=== PATIENT | female | born 1985 | race African-American/Black ===

== ENCOUNTER 2017-03-21 10:03 | Emergency (ER) | payer OTHER ==
[~2017-03-21] VITALS: Ht 157.5 cm; Wt 122.5 kg
[~2017-03-21 10:03] MED LIST: AZIT500T2 PO; CITA20TA9 PO
[2017-03-21 10:34] VITALS: BP 132/62
--- NOTE | 2017-03-21 11:13 | PHYS DOC ---
Past Medical History Past Medical History: Anxiety, Asthma Additional Past Medical Histor: VSD, panic attacks Past Surgical History: , Other Additional Past Surgical Histo: PFO closure as an infant Alcohol Use: Occasionally Drug Use: None Adult General Chief Complaint Chief Complaint: COUGH HPI HPI Patient is a 31 year old female presents to the stating that she has been having a cough congestion with sinus pressure. Patient states this is been gone on for the last week. She states she's been having chills denies fevers. Patient states she does have a history of asthma. Denies shortness of air difficulty breathing. Review of Systems Review of Systems Constitutional: Denies fever or chills [] Eyes: Denies change in visual acuity, redness, or eye pain [] HENT: nasal congestion and sore throat [] Respiratory: cough and wheezing Cardiovascular: No additional information not addressed in HPI [] GI: Denies abdominal pain, nausea, vomiting, bloody stools or diarrhea [] : Denies dysuria or hematuria [] Musculoskeletal: Denies back pain or joint pain [] Integument: Denies rash or skin lesions [] Neurologic: Denies headache, focal weakness or sensory changes [] Endocrine: Denies polyuria or polydipsia [] Current Medications Current Medications Current Medications Medications (Trade) Dose Ordered Sig/Kareen Start Time Stop Time Status Last Admin Dose Admin Albuterol/ Ipratropium (Duoneb) 3 ml 1X ONCE 03/21/17 11:15 03/21/17 11:21 DC 03/21/17 12:44 3 ML Allergies Allergies Allergies Coded Allergies Type Severity Reaction Last Updated Verified cefaclor Allergy Intermediate hives 01/04/14 Yes prochlorperazine edisylate Adverse Reaction Unknown panic attack 01/04/14 Yes prochlorperazine maleate Adverse Reaction Unknown panic attack 01/04/14 Yes Physical Exam Physical Exam Constitutional: Well developed, well nourished, no acute distress, non-toxic appearance. [] HENT: Normocephalic, atraumatic, bilateral external ears normal, oropharynx moist, no oral exudates, nose normal. Bilateral tympanic membranes appear to be normal. Throat with postnasal drip noted no erythematous no exudate no redness noted. Eyes: PERRLA, EOMI, conjunctiva normal, no discharge. [] Neck: Normal range of motion, no tenderness, supple, no stridor. [] Cardiovascular:Heart rate regular rhythm, no murmur [] Lungs & Thorax: Bilateral breath sounds with wheezes noted in the right posterior lobe. Back: No tenderness Extremities: No tenderness, no cyanosis, no clubbing, ROM intact, no edema. [] Neurologic: Alert and oriented X 3, normal motor function, normal sensory function, no focal deficits noted. [] Psychologic: Affect normal, judgement normal, mood normal. [] Current Patient Data Vital Signs Vital Signs Date Time Temp Pulse Resp B/P (MAP) Pulse Ox O2 Delivery O2 Flow Rate FiO2 03/21/17 10:34 98.4 71 18 100 Room Air 98.4 Lab Values Laboratory Tests Test 03/21/17 09:45 POC Urine HCG, Qualitative Hcg negative (Negative) EKG EKG [] Radiology/Procedures Radiology/Procedures [] Course & Med Decision Making Course & Med Decision Making Pertinent Labs and Imaging studies reviewed. (See chart for details) Patient was provided with a DuoNeb treatment here in the emergency department. She'll be placed on prednisone with an inhaler at discharge. She'll also be placed on doxycycline for sinusitis infection. Patient was instructed to avoid sexual intercourse for the next 2 weeks. Patient agrees with discharge instructions, treatment regimens and follow-up recommendations. Sutures to return back to emergency department has been provided. Patient agrees with discharge instructions treatment regimens and follow-up recommendations. All questions and concerns been answered. [] Dragon Disclaimer Dragon Disclaimer This electronic medical record was generated, in whole or in part, using a voice recognition dictation system. Departure Departure Impression: Primary Impression: Sinusitis Additional Impression: Bronchitis Disposition: 01 HOME, SELF-CARE Condition: STABLE Referrals: MARY LOU TORRES APRN (PCP) Patient Instructions: Acute Bronchitis, [id number], Sinusitis, [id number] Additional Instructions: Activity as tolerated. Medication as prescribed. Avoid sexual intercourse while being on the antibiotics. Follow-up through primary care physician in the next week. Return back to emergency prior signs and symptoms that become worse. Scripts Albuterol Sulfate (PROAIR HFA INHALER) 8.5 Gm Hfa.aer.ad 1 PUFF INH PRN Q6HRS Y for SHORTNESS OF BREATH, #1 INHALER 0 Refills Prov: NIKKI HUFF APRN 03/21/17 Prednisone (PREDNISONE) 20 Mg Tablet 40 MG PO DAILY, #14 TAB Prov: NIKKI HUFF APRN 03/21/17 Doxycycline Hyclate (DOXYCYCLINE HYCLATE) 100 Mg Capsule 1 CAP PO BID, #20 CAP Prov: NIKKI HUFF APRN 03/21/17 Problem Qualifiers Primary Impression: Sinusitis Sinusitis location: unspecified location Chronicity: acute NIKKI HUFF APRN Mar 21, 2017 11:13
[2017-03-21] MEDS ORDERED: IPRATRPIUM/ALBUTEROL 0.5/2.5MG 3 ML NEBU. NEB ONE (11:15)
[2017-03-21] MEDS ORDERED: DOXY100C2 PO (12:50)
[2017-03-21] MEDS ORDERED: PRED20TA PO (12:52)
[2017-03-21] MEDS ORDERED: PROAIR HFA8.5 GM INH (12:52)
== END 2017-03-21 13:25 | disposition home or self-care (01) ==
LOC: ER 10:03
DX: J01.90 Acute sinusitis, unspecified (principal); J40 Bronchitis, not specified as acute or chronic; J45.909 Unspecified asthma, uncomplicated; F41.9 Anxiety disorder, unspecified; Z88.1 Allergy status to other antibiotic agents; Z88.8 Allergy status to other drugs, medicaments and biological substances
CPT/HCPCS: 81025; 94640; 99283; J7620

== ENCOUNTER → 2017-04-14 | Outpatient (CLI) | payer OTHER ==
[2017-03-21 10:34] VITALS: BP 132/62
[~2017-04-14] MED LIST changes: +DOXY100C2 PO; +PRED20TA PO; +PROAIR HFA8.5 GM INH
[2017-04-14 13:13] LABS: BASO % 1 % (0-3); EOS % 3 % (0-3); HEMATOCRIT 35.6 % (36.0-47.0); HEMOGLOBIN 11.2 g/dL (12.0-15.5); LYMPH # 1.7 x10^3/uL (1.0-4.8); LYMPH % 29 % (24-48); MEAN CORPUSCULAR HEMOGLOBIN 26 pg (25-35); MEAN CORPUSCULAR HGB CONC 32 g/dL (31-37); MEAN CORPUSCULAR VOLUME 83 fL (79-100); MONO % 10 % (0-9); NEUT % 59 % (31-73); PLATELET COUNT 221 x10^3/uL (140-400); RED BLOOD COUNT 4.26 x10^6/uL (3.50-5.40); RED CELL DISTRIBUTION WIDTH 15.3 % (11.5-14.5); WHITE BLOOD COUNT 5.8 x10^3/uL (4.0-11.0)
[2017-04-14 13:44] LABS: % SAT IRON 22 % (15-34); ALBUMIN 3.4 g/dL (3.4-5.0); ALBUMIN/GLOBULIN RATIO 0.9 (1.0-1.7); CALCIUM 8.9 mg/dL (8.5-10.1); CREATININE 0.6 mg/dL (0.6-1.0); GFR 139.3; IRON,SERUM 68 ug/dL (50-170); TOTAL BILIRUBIN 0.4 mg/dL (0.2-1.0)
[2017-04-14 13:46] LABS: CHOLESTEROL/HDL RATIO 2.8
[2017-04-15 00:09] LABS: HIV ANTIBODY Non Reactive (Non Reactive)
== END | disposition home or self-care (01) ==
LOC: LAB 12:20
PROVIDERS: ATTEND Family Medicine
DX: Z13.220 Encounter for screening for lipoid disorders (principal); Z20.2 Contact with and (suspected) exposure to infections with a predominantly sexual mode of transmission; R53.83 Other fatigue
CPT/HCPCS: 36415; 80053; 80061; 83540; 83550; 84436; 84443; 85025; 86701; 86702; 86703; 87510; 87535; 87660

== ENCOUNTER 2017-05-02 12:19 | Inpatient (IN) | payer OTHER ==
[~2017-05-02] VITALS: Ht 160 cm; Wt 123.8 kg
--- NOTE | 2017-05-02 12:49 | PHYS DOC ---
Past Medical History Past Medical History: Anxiety, Asthma Additional Past Medical Histor: VSD, panic attacks Past Surgical History: , Other Additional Past Surgical Histo: PFO closure as an infant Alcohol Use: Occasionally Drug Use: None Adult General Chief Complaint Chief Complaint: chest pain HPI HPI Patient is a 31 year old female who presents with chest pain. She reports that she has substernal chest pain pressure like and radiates through to her back and also her left shoulder with associated shortness of breath. The pain started while getting her kids ready for school and ironing, it is been persistent since and went to a primary care doctor where they performed an EKG and transfer the patient via EMS. Patient states she continues to have chest pain that is slightly improved when she lays down, shortness of breath has also improved. Patient was given aspirin and nitroglycerin by EMS, no improvement of her symptoms at that time. She denies any known cardiac disease, no early family cardiac disease. Patient takes no estrogen but has been taking phentermine, a diet pill, over the last week. She denies smoking, no illegal substances. Primary care physician is Dr. Hiwot Lopez Denies h/o PE or DVT Review of Systems Review of Systems Constitutional: Denies fever or chills [] Eyes: Denies change in visual acuity, redness, or eye pain [] HENT: Denies nasal congestion or sore throat [] Respiratory: Denies cough Cardiovascular:per hpi GI: Denies abdominal pain, nausea, vomiting, bloody stools or diarrhea [] : Denies dysuria or hematuria [] Musculoskeletal: Denies back pain or joint pain [] Integument: Denies rash or skin lesions [] Neurologic: Denies headache, focal weakness or sensory changes [] Current Medications Current Medications Current Medications Medications (Trade) Dose Ordered Sig/Kareen Start Time Stop Time Status Last Admin Dose Admin Morphine Sulfate 4 mg 1X ONCE 05/02/17 14:00 05/02/17 14:01 DC 05/02/17 13:36 4 MG Allergies Allergies Allergies Coded Allergies Type Severity Reaction Last Updated Verified prochlorperazine edisylate Adverse Reaction Unknown panic attack 01/04/14 Yes prochlorperazine maleate Adverse Reaction Unknown panic attack 01/04/14 Yes Physical Exam Physical Exam Constitutional: Well developed, well nourished, no acute distress, non-toxic appearance.Obese HENT: Normocephalic, atraumatic, bilateral external ears normal, oropharynx moist, no oral exudates, nose normal. [] Eyes: PERRLA, EOMI, conjunctiva normal, no discharge. [] Neck: Normal range of motion, no tenderness, supple, no stridor, nontender to palpation Cardiovascular:Heart rate regular with irregular rhythm, no murmur [] Lungs & Thorax: Bilateral breath sounds clear to auscultation, no wheeze or crackles Abdomen: soft, no tenderness, no masses, no pulsatile masses. [] Skin: Warm, dry, no erythema, no rash. [] Back: No tenderness, no CVA tenderness. [] Extremities: No tenderness, no cyanosis, no clubbing, ROM intact, no edema. [] Neurologic: Alert and oriented X 3, normal motor function, normal sensory function, no focal deficits noted. [] Current Patient Data Vital Signs Vital Signs Date Time Temp Pulse Resp B/P (MAP) Pulse Ox O2 Delivery O2 Flow Rate FiO2 05/02/17 14:11 63 16 166/74 (104) 100 Room Air 05/02/17 12:28 98.1 98.1 Lab Values Laboratory Tests Test 05/02/17 13:10 05/02/17 13:26 White Blood Count 4.0 x10^3/uL (4.0-11.0) Red Blood Count 4.30 x10^6/uL (3.50-5.40) Hemoglobin 11.4 g/dL (12.0-15.5) L Hematocrit 35.9 % (36.0-47.0) L Mean Corpuscular Volume 84 fL (79-100) Mean Corpuscular Hemoglobin 27 pg (25-35) Mean Corpuscular Hemoglobin Concent 32 g/dL (31-37) Red Cell Distribution Width 14.3 % (11.5-14.5) Platelet Count 214 x10^3/uL (140-400) Neutrophils (%) (Auto) 48 % (31-73) Lymphocytes (%) (Auto) 40 % (24-48) Monocytes (%) (Auto) 8 % (0-9) Eosinophils (%) (Auto) 3 % (0-3) Basophils (%) (Auto) 1 % (0-3) Neutrophils # (Auto) 1.9 x10^3uL (1.8-7.7) Lymphocytes # (Auto) 1.6 x10^3/uL (1.0-4.8) Monocytes # (Auto) 0.3 x10^3/uL (0.0-1.1) Eosinophils # (Auto) 0.1 x10^3/uL (0.0-0.7) Basophils # (Auto) 0.0 x10^3/uL (0.0-0.2) D-Dimer (Vijaya) 0.40 ug/mlFEU (0.00-0.50) Sodium Level 140 mmol/L (136-145) Potassium Level 3.8 mmol/L (3.5-5.1) Chloride Level 104 mmol/L (98-107) Carbon Dioxide Level 28 mmol/L (21-32) Anion Gap 8 (6-14) Blood Urea Nitrogen 7 mg/dL (7-20) Creatinine 0.6 mg/dL (0.6-1.0) Estimated GFR (Cockcroft-Gault) 139.3 BUN/Creatinine Ratio 12 (6-20) Glucose Level 87 mg/dL (70-99) Calcium Level 9.0 mg/dL (8.5-10.1) Magnesium Level 1.8 mg/dL (1.8-2.4) Total Bilirubin 0.3 mg/dL (0.2-1.0) Aspartate Amino Transferase (AST) 12 U/L (15-37) L Alanine Aminotransferase (ALT) 19 U/L (14-59) Alkaline Phosphatase 58 U/L (46-116) Troponin I Quantitative < 0.017 ng/mL (0.000-0.055) Total Protein 7.3 g/dL (6.4-8.2) Albumin 3.7 g/dL (3.4-5.0) Albumin/Globulin Ratio 1.0 (1.0-1.7) POC Urine HCG, Qualitative Hcg negative (Negative) Laboratory Tests 05/02/17 13:10 Laboratory Tests 05/02/17 13:10 EKG EKG 69 bpm, ectopic atrial beats intermittently, irregular rhythm, normal rate, no ST elevation or depression, nonischemic T waves, interpreted by me.[] Radiology/Procedures Radiology/Procedures CXr: IMPRESSION: No acute cardiopulmonary abnormality is detected. Course & Med Decision Making Course & Med Decision Making Pertinent Labs and Imaging studies reviewed. (See chart for details) pt already with asa and nitro. Morphine given for pain and labs/ekg/cxr performed. No acute findings, concerning that pt is taking medication with a serious reaction of cardiac ischemia. Talked with cardiology, recommended admission. Pt accepted by Dr. Lechuga. Dragjean Disclaimer Agustín Disclaimer This electronic medical record was generated, in whole or in part, using a voice recognition dictation system. Departure Departure Impression: Primary Impression: Chest pain Additional Impression: Abnormal EKG Admitting Physician: Lyssa Pelayo Condition: STABLE Referrals: MARY LOU TORRES APRN (PCP) Problem Qualifiers FORTINO HERNANDEZ MD May 02, 2017 12:49
--- NOTE | 2017-05-02 12:53 | EKG ---
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
[2017-05-02 13:25] LABS: BASO % 1 % (0-3); EOS % 3 % (0-3); HEMATOCRIT 35.9 % (36.0-47.0); HEMOGLOBIN 11.4 g/dL (12.0-15.5); LYMPH # 1.6 x10^3/uL (1.0-4.8); LYMPH % 40 % (24-48); MEAN CORPUSCULAR HEMOGLOBIN 27 pg (25-35); MEAN CORPUSCULAR HGB CONC 32 g/dL (31-37); MEAN CORPUSCULAR VOLUME 84 fL (79-100); MONO % 8 % (0-9); NEUT % 48 % (31-73); PLATELET COUNT 214 x10^3/uL (140-400); RED CELL DISTRIBUTION WIDTH 14.3 % (11.5-14.5)
[2017-05-02 13:37] LABS: CREATININE 0.6 mg/dL (0.6-1.0); GFR 139.3; POTASSIUM 3.8 mmol/L (3.5-5.1)
[2017-05-02 13:44] LABS: ALBUMIN 3.7 g/dL (3.4-5.0); MAGNESIUM 1.8 mg/dL (1.8-2.4); TOTAL BILIRUBIN 0.3 mg/dL (0.2-1.0); TOTAL PROTEIN 7.3 g/dL (6.4-8.2)
--- NOTE | 2017-05-02 13:45 | RAD ---
Portable chest, 05/02/2017: History: Left-sided chest pain Comparison is made to a study from 09/14/2015. The heart is at the upper limits of normal in size. The pulmonary vascularity is normal. There appears to be a tiny granuloma laterally in the left lung. No acute infiltrates are seen. There is no evidence of pleural fluid. IMPRESSION: No acute cardiopulmonary abnormality is detected.
[2017-05-02] MEDS ORDERED: MORPHINE SULFATE 4 MG/ML DISP.SYRIN. IV ONE (14:00)
[2017-05-02] MEDS ORDERED: NITROGLYCERIN SUBLINGUAL 0.4 MG BOTTLE OF 25. SL PRN (14:30)
[2017-05-02] MEDS ORDERED: DIPH25CA58 PO (14:51)
[2017-05-02] MEDS ORDERED: ONDANSETRON PF 4 MG/2 ML VIAL. IV PRN (15:30)
[2017-05-02] MEDS ORDERED: ONDANSETRON ODT 4 MG TAB.RAPDIS. PO PRN (15:30)
[2017-05-02] MEDS ORDERED: ACETAMINOPHEN 500 MG TABLET PO PRN (15:30)
[2017-05-02] MEDS ORDERED: ZOLPIDEM 5 MG TABLET. PO PRN (15:30)
--- NOTE | 2017-05-02 15:36 | PDOC1 ---
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 Lopez , has been wanting to lose weight and trying so hard but claims no results with exercise etc, comes in bec of CP started 4 hrs ago, midsternal, combination of dull and sharp on description, squeezing and also feels like someone on her chest, NO radiation, no SOA, no diaphoresis, NO known cardiac hx, no vices, no family hx premature CAD, HAs been taking a diet pill/appetite suppressant started 2 weeks ago, phentarmine, 37.5 even cuts the pill to 1/2 tab a day, She has lost 10 lbs since starting it. SHe claims she has had CP even before the pill but this time much worse. Weight 270 lbs EKG some ectopic atria, beats but no stemi, labs ok Unknown TSH status AHd the midsternal CP while I was seeing her SBP 160./70, HR 60s Past Medical History Cardiovascular: No pertinent hx GI: No pertinent hx Heme/Onc: No pertinent hx Hepatobiliary: No pertinent hx Psych: No pertinent hx Rheumatologic: No pertinent hx Infectious disease: No pertinent hx ENT: No pertinent hx Renal/: No pertinent hx Endocrine: No pertinent hx Dermatology: No pertinent hx Past Surgical History Past Surgical History: No pertinent history Family History Family History: No Significant Social History Smoke: No ALCOHOL: none Drugs: None Current Medications Current Medications Current Medications Morphine Sulfate 4 mg 1X ONCE IV Last administered on 05/02/17t 13:36; Start 05/02/17 at 14:00; Stop 05/02/17 at 14:01; Status DC Morphine Sulfate 4 mg PRN Q2HR PRN IV PAIN; Start 05/02/17 at 14:30; Stop 05/03 at 14:29 Nitroglycerin (Nitrostat) 0.4 mg PRN Q5MIN PRN SL CHEST PAIN; Start 05/02/17 at 14:30; Stop 05/03/17 at 14:29 Active Scripts Active Proair Hfa Inhaler (Albuterol Sulfate) 8.5 Gm Hfa.aer.ad 1 Puff INH PRN Q6HRS PRN Reported Benadryl (Diphenhydramine Hcl) 25 Mg Capsule 25 Mg PO PRN Q4HRS PRN Celexa (Citalopram Hydrobromide) 20 Mg Tablet 20 Mg PO QHS Allergies Allergies: Coded Allergies: cefaclor (Verified Allergy, Intermediate, hives, 05/02/17) Has never taken pcn's before prochlorperazine edisylate (Verified Adverse Reaction, Unknown, panic attack, 01/04/14) prochlorperazine maleate (Verified Adverse Reaction, Unknown, panic attack , 01/04/14) ROS Review of System as per HPI, all else is neg Physical Exam General: Alert, Oriented X3, Cooperative, No acute distress HEENT: Atraumatic, PERRLA, EOMI Lungs: Clear to auscultation, Normal air movement Heart: S1S2, RRR, no thrills, no rubs, no gallops, no murmurs Cardiovascular: S1, S2 Breasts: Normal, Rt breast nml w/o mass, Lt breast nml w/o mass, Nipples normal Rectal Exam: not examined PELVIC: Nml ext genitalia Extremities: No clubbing, No cyanosis, No edema, Normal pulses, No tenderness/ swelling Skin: No rashes, No breakdown, No significant lesion Neuro: Normal gait, Normal speech, Strength at 5/5 X4 ext, Normal tone, Sensation intact, Cranial nerves 3-12 NL, Reflexes 2+ Psych/Mental Status: Mental status NL, Mood NL Vitals Vitals Vital Signs Date Time Temp Pulse Resp B/P (MAP) Pulse Ox O2 Delivery O2 Flow Rate FiO2 05/02/17 14:11 63 16 166/74 (104) 100 Room Air 05/02/17 12:28 98.1 98.1 Labs Labs Laboratory Tests Test 05/02/17 13:10 05/02/17 13:26 White Blood Count 4.0 x10^3/uL (4.0-11.0) Red Blood Count 4.30 x10^6/uL (3.50-5.40) Hemoglobin 11.4 g/dL (12.0-15.5) Hematocrit 35.9 % (36.0-47.0) Mean Corpuscular Volume 84 fL (79-100) Mean Corpuscular Hemoglobin 27 pg (25-35) Mean Corpuscular Hemoglobin Concent 32 g/dL (31-37) Red Cell Distribution Width 14.3 % (11.5-14.5) Platelet Count 214 x10^3/uL (140-400) Neutrophils (%) (Auto) 48 % (31-73) Lymphocytes (%) (Auto) 40 % (24-48) Monocytes (%) (Auto) 8 % (0-9) Eosinophils (%) (Auto) 3 % (0-3) Basophils (%) (Auto) 1 % (0-3) Neutrophils # (Auto) 1.9 x10^3uL (1.8-7.7) Lymphocytes # (Auto) 1.6 x10^3/uL (1.0-4.8) Monocytes # (Auto) 0.3 x10^3/uL (0.0-1.1) Eosinophils # (Auto) 0.1 x10^3/uL (0.0-0.7) Basophils # (Auto) 0.0 x10^3/uL (0.0-0.2) D-Dimer (Vijaya) 0.40 ug/mlFEU (0.00-0.50) Sodium Level 140 mmol/L (136-145) Potassium Level 3.8 mmol/L (3.5-5.1) Chloride Level 104 mmol/L (98-107) Carbon Dioxide Level 28 mmol/L (21-32) Anion Gap 8 (6-14) Blood Urea Nitrogen 7 mg/dL (7-20) Creatinine 0.6 mg/dL (0.6-1.0) Estimated GFR (Cockcroft-Gault) 139.3 BUN/Creatinine Ratio 12 (6-20) Glucose Level 87 mg/dL (70-99) Calcium Level 9.0 mg/dL (8.5-10.1) Magnesium Level 1.8 mg/dL (1.8-2.4) Total Bilirubin 0.3 mg/dL (0.2-1.0) Aspartate Amino Transf (AST/SGOT) 12 U/L (15-37) Alanine Aminotransferase (ALT/SGPT) 19 U/L (14-59) Alkaline Phosphatase 58 U/L (46-116) Troponin I Quantitative < 0.017 ng/mL (0.000-0.055) Total Protein 7.3 g/dL (6.4-8.2) Albumin 3.7 g/dL (3.4-5.0) Albumin/Globulin Ratio 1.0 (1.0-1.7) Bedside Urine HCG, Qualitative Hcg negative (Negative) Laboratory Tests Test 05/02/17 13:10 05/02/17 13:26 White Blood Count 4.0 x10^3/uL (4.0-11.0) Red Blood Count 4.30 x10^6/uL (3.50-5.40) Hemoglobin 11.4 g/dL (12.0-15.5) Hematocrit 35.9 % (36.0-47.0) Mean Corpuscular Volume 84 fL (79-100) Mean Corpuscular Hemoglobin 27 pg (25-35) Mean Corpuscular Hemoglobin Concent 32 g/dL (31-37) Red Cell Distribution Width 14.3 % (11.5-14.5) Platelet Count 214 x10^3/uL (140-400) Neutrophils (%) (Auto) 48 % (31-73) Lymphocytes (%) (Auto) 40 % (24-48) Monocytes (%) (Auto) 8 % (0-9) Eosinophils (%) (Auto) 3 % (0-3) Basophils (%) (Auto) 1 % (0-3) Neutrophils # (Auto) 1.9 x10^3uL (1.8-7.7) Lymphocytes # (Auto) 1.6 x10^3/uL (1.0-4.8) Monocytes # (Auto) 0.3 x10^3/uL (0.0-1.1) Eosinophils # (Auto) 0.1 x10^3/uL (0.0-0.7) Basophils # (Auto) 0.0 x10^3/uL (0.0-0.2) D-Dimer (Vijaya) 0.40 ug/mlFEU (0.00-0.50) Sodium Level 140 mmol/L (136-145) Potassium Level 3.8 mmol/L (3.5-5.1) Chloride Level 104 mmol/L (98-107) Carbon Dioxide Level 28 mmol/L (21-32) Anion Gap 8 (6-14) Blood Urea Nitrogen 7 mg/dL (7-20) Creatinine 0.6 mg/dL (0.6-1.0) Estimated GFR (Cockcroft-Gault) 139.3 BUN/Creatinine Ratio 12 (6-20) Glucose Level 87 mg/dL (70-99) Calcium Level 9.0 mg/dL (8.5-10.1) Magnesium Level 1.8 mg/dL (1.8-2.4) Total Bilirubin 0.3 mg/dL (0.2-1.0) Aspartate Amino Transf (AST/SGOT) 12 U/L (15-37) Alanine Aminotransferase (ALT/SGPT) 19 U/L (14-59) Alkaline Phosphatase 58 U/L (46-116) Troponin I Quantitative < 0.017 ng/mL (0.000-0.055) Total Protein 7.3 g/dL (6.4-8.2) Albumin 3.7 g/dL (3.4-5.0) Albumin/Globulin Ratio 1.0 (1.0-1.7) Bedside Urine HCG, Qualitative Hcg negative (Negative) VTE Prophylaxis Ordered VTE Prophylaxis Devices: Yes VTE Pharmacological Prophylaxi: Yes Assessment/Plan Assessment/Plan 1. CP, r.o ACS, i do believe likely vasospams from her phentermine - Admit with cycle cards and cards consult Hold phentermine now Did discuss other modalities to lose weight Check TSH Ca channel luis f for the vasospasM? will discuss with cards 2. Morbid obesity BMI - weight 270s lbs 3. Ectopic atrial beats 4. Elevated BP with no dx HTN - add prn s for now, peniding course will make recommendations Seen at ER 17 MARIAA PELAYO MD May 02, 2017 15:36
[2017-05-02] MEDS ORDERED: hydrALAZINE 20 MG/ML VIAL. IVP PRN (15:45)
[2017-05-02] MEDS ORDERED: ASPIRIN ENTERIC COATED 325 MG TABLET.DR. PO ONE (17:00)
[2017-05-02 17:30] VITALS: BP 139/71
[2017-05-02] MEDS: MORPHINE SULFATE 4 MG/ML DISP.SYRIN. IV PRN ×2 (18:02→22:12)
[2017-05-02 19:45] VITALS: BP 118/67
[2017-05-02] MEDS ORDERED: NON FORMULARY ITEM (Albuterol Sulfate (Proair Hfa Inhaler) 1 PUFF) INH PRN (20:30)
[2017-05-02] MEDS ORDERED: diphenhydrAMINE HCL 25 MG CAPSULE PO PRN (20:30)
[2017-05-02] MEDS ORDERED: ALBUTEROL SULFATE 2.5 MG/3 ML NEBU. NEB PRN (20:45)
[2017-05-02] MEDS: CITALOPRAM 20 MG TABLET. PO SCH ×2 (21:04→21:06)
[2017-05-02 22:22] VITALS: BP 129/76
[2017-05-03 02:40] LABS: CHOLESTEROL/HDL RATIO 3.3
[2017-05-03 02:52] VITALS: BP 120/73
[2017-05-03 07:21] VITALS: BP 117/67
--- NOTE | 2017-05-03 10:28 | PDOC2 ---
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 Reports waking up with left chest pain pressure like radiating to mid back and left arm. This is also reproducible with inspiration and positive for nausea. reports started on phentermine 2 weeks ago but denies any sensation of palpitations or diaphoresis. Her left chest discomfort and sometimes epigastric discomfort is consistently reproducible with inspiration. In addition she has been having wheeze daily but not bad and easily resolved with her asthma inhaler which she has been using twice a day. Denies any falls, heavy lifting. She is positive for open heart repair as a child for VSD otherwise no other CV hx. No recent long distance travel and no OCP. PAST MEDICAL HISTORY Past Medical History Asthma, VSD with repair as a child, anxiety PAST SURGICAL HISTORY Past Surgical History: Other (VSD rpair as a child) FAMILY HISTORY Family History: Coronary Artery Disease (father and grandmother) SOCIAL HISTORY Smoke: No ALCOHOL: occassional Drugs: None Lives: with Family CURRENT MEDICATIONS CURRENT MEDICATIONS Current Medications Medications (Trade) Dose Ordered Sig/Kareen Route PRN Reason Start Time Stop Time Status Last Admin Dose Admin Morphine Sulfate 4 mg 1X ONCE IV 05/02/17 14:00 05/02/17 14:01 DC 05/02/17 13:36 Morphine Sulfate 4 mg PRN Q2HR PRN IV PAIN 05/02/17 14:30 05/03/17 14:29 05/02/17 22:12 Citalopram Hydrobromide (CeleXA) 20 mg QHS PO 05/02/17 21:00 05/02/17 21:06 ALLERGIES ALLERGIES: Coded Allergies: cefaclor (Verified Allergy, Intermediate, hives, 05/02/17) Has never taken pcn's before prochlorperazine edisylate (Verified Adverse Reaction, Intermediate, panic attack, 05/03/17) prochlorperazine maleate (Verified Adverse Reaction, Intermediate, panic attack, 05/03/17) ROS Review of System 14 point ROS evaluated with pertinent positives noted per HPI PHYSICAL EXAM General: Alert, Oriented X3, Cooperative, No acute distress HEENT: Atraumatic, Mucous membr. moist/pink Lungs: Clear to auscultation, Normal air movement Heart: Regular rate (SR), Normal S1, Normal S2, Other (2/6 systolic murmur to ABELARDO) Abdomen: Soft, No tenderness, Other (negative murphys) Extremities: No cyanosis, No edema Skin: No breakdown, No significant lesion Neuro: Normal speech, Sensation intact Psych/Mental Status: Mood NL MUSCULOSKELETAL: Full range of motion without pain VITALS VITALS Vital Signs Date Time Temp Pulse Resp B/P (MAP) Pulse Ox O2 Delivery O2 Flow Rate FiO2 05/03/17 08:10 Room Air 05/03/17 07:52 99 05/03/17 07:21 98.4 61 16 117/67 (84) 98.4 LABS Lab: Laboratory Tests Test 05/02/17 13:10 05/02/17 13:26 05/02/17 19:55 05/03/17 02:05 White Blood Count 4.0 x10^3/uL (4.0-11.0) Red Blood Count 4.30 x10^6/uL (3.50-5.40) Hemoglobin 11.4 g/dL (12.0-15.5) Hematocrit 35.9 % (36.0-47.0) Mean Corpuscular Volume 84 fL (79-100) Mean Corpuscular Hemoglobin 27 pg (25-35) Mean Corpuscular Hemoglobin Concent 32 g/dL (31-37) Red Cell Distribution Width 14.3 % (11.5-14.5) Platelet Count 214 x10^3/uL (140-400) Neutrophils (%) (Auto) 48 % (31-73) Lymphocytes (%) (Auto) 40 % (24-48) Monocytes (%) (Auto) 8 % (0-9) Eosinophils (%) (Auto) 3 % (0-3) Basophils (%) (Auto) 1 % (0-3) Neutrophils # (Auto) 1.9 x10^3uL (1.8-7.7) Lymphocytes # (Auto) 1.6 x10^3/uL (1.0-4.8) Monocytes # (Auto) 0.3 x10^3/uL (0.0-1.1) Eosinophils # (Auto) 0.1 x10^3/uL (0.0-0.7) Basophils # (Auto) 0.0 x10^3/uL (0.0-0.2) D-Dimer (Vijaya) 0.40 ug/mlFEU (0.00-0.50) Sodium Level 140 mmol/L (136-145) Potassium Level 3.8 mmol/L (3.5-5.1) Chloride Level 104 mmol/L (98-107) Carbon Dioxide Level 28 mmol/L (21-32) Anion Gap 8 (6-14) Blood Urea Nitrogen 7 mg/dL (7-20) Creatinine 0.6 mg/dL (0.6-1.0) Estimated GFR (Cockcroft-Gault) 139.3 BUN/Creatinine Ratio 12 (6-20) Glucose Level 87 mg/dL (70-99) Calcium Level 9.0 mg/dL (8.5-10.1) Magnesium Level 1.8 mg/dL (1.8-2.4) Total Bilirubin 0.3 mg/dL (0.2-1.0) Aspartate Amino Transf (AST/SGOT) 12 U/L (15-37) Alanine Aminotransferase (ALT/SGPT) 19 U/L (14-59) Alkaline Phosphatase 58 U/L (46-116) Troponin I Quantitative < 0.017 ng/mL (0.000-0.055) < 0.017 ng/mL (0.000-0.055) < 0.017 ng/mL (0.000-0.055) Total Protein 7.3 g/dL (6.4-8.2) Albumin 3.7 g/dL (3.4-5.0) Albumin/Globulin Ratio 1.0 (1.0-1.7) Thyroid Stimulating Hormone (TSH) 0.606 uIU/mL (0.358-3.74) Bedside Urine HCG, Qualitative Hcg negative (Negative) Triglycerides Level 68 mg/dL (0-150) Cholesterol Level 192 mg/dL (0-200) LDL Cholesterol, Calculated 119 mg/dL (0-100) VLDL Cholesterol, Calculated 14 mg/dL (0-40) Non-HDL Cholesterol Calculated 133 mg/dL (0-129) HDL Cholesterol 59 mg/dL (40-60) Cholesterol/HDL Ratio 3.3 ASSESSMENT/PLAN ASSESSMENT/PLAN 1. Atypical CP: Doubt ACS. Troponin series normal, EKG SR without acute changes but appears to have WAP (possibly induced by phentermine). Highly suspect MSK duplicated with deep inspiration 2. Asthma exacerbation: inadequate coverage. Per PCP 3. Anxiety; likely accentuated her symptoms. 4. Hx of VSD repair as a child. 5. Morbid obesity: BMI 48, recently got started on phentermine Recommendations 1. TTE today. If unremarkable then may DC per cardiac perspective. 2. Lifestyle modifications 3. Discussed treatment plan with pt and if symptoms recurs then to notify our office. 4. Would recommend stopping phentermine. If palpitations occurs then would consider for event monitor. 5. Defer antiinflammatory and asthma maintenance med to PCP 6. Pt will need daily antihistamine as well for allergy season. Problems: MALINDA CHOU MD 05/04/17 1126: CARDIAC CONSULT ALLERGIES ALLERGIES: Coded Allergies: cefaclor (Verified Allergy, Intermediate, hives, 05/02/17) Has never taken pcn's before prochlorperazine edisylate (Verified Adverse Reaction, Intermediate, panic attack, 05/03/17) prochlorperazine maleate (Verified Adverse Reaction, Intermediate, panic attack, 05/03/17) ASSESSMENT/PLAN ASSESSMENT/PLAN Patient seen and examined 05/03/17. Agree with CNC MACHINIST's assessment and plan. Chest pain with atypical features and most probably musculoskeletal. Myocardial infarction ruled out. 2-D echo showed normal LV function without any wall motion abnormalities. Okay for discharge from cardiac standpoint. Thank you for your consultation Problems: CHARMAINE KELSEY APRN May 03, 2017 10:28 MALINDA CHOU MD May 04, 2017 11:26
[2017-05-03 10:35] VITALS: BP 129/74
[2017-05-03] MEDS: MORPHINE SULFATE 4 MG/ML DISP.SYRIN. IV PRN (10:35)
--- NOTE | 2017-05-03 11:15 | PDOC3 ---
Discharge Summary Visit Information Date of Admission: May 02, 2017 Date of Discharge: May 03, 2017 Admitting Diagnosis Comment: 1. CP, r.o ACS, i do believe likely vasospams from her phentermine - Admit with cycle cards and cards consult Hold phentermine now Did discuss other modalities to lose weight Check TSH Ca channel luis f for the vasospasM? will discuss with cards - claudia feels this is uncecessary 2. Morbid obesity BMI - weight 270s lbs 3. Ectopic atrial beats 4. Elevated BP with no dx HTN - add prn s for now, peniding course will make recommendations - [facility] opending , if normal then home Final Diagnosis Problems Medical Problems: (1) Abnormal EKG Status: Acute (2) Chest pain Status: Acute Brief Hospital Course Allergies Allergies Coded Allergies Type Severity Reaction Last Updated Verified cefaclor Allergy Intermediate hives 05/02/17 Yes prochlorperazine edisylate Adverse Reaction Intermediate panic attack 05/03/17 Yes prochlorperazine maleate Adverse Reaction Intermediate panic attack 05/03/17 Yes Vital Signs Vital Signs Date Time Temp Pulse Resp B/P (MAP) Pulse Ox O2 Delivery O2 Flow Rate FiO2 05/03/17 10:35 99 Room Air 05/03/17 10:35 98.0 66 18 129/74 (92) 98.0 Lab Results Laboratory Tests Test 05/02/17 13:10 05/02/17 13:26 05/02/17 19:55 05/03/17 02:05 White Blood Count 4.0 x10^3/uL (4.0-11.0) Red Blood Count 4.30 x10^6/uL (3.50-5.40) Hemoglobin 11.4 g/dL (12.0-15.5) Hematocrit 35.9 % (36.0-47.0) Mean Corpuscular Volume 84 fL (79-100) Mean Corpuscular Hemoglobin 27 pg (25-35) Mean Corpuscular Hemoglobin Concent 32 g/dL (31-37) Red Cell Distribution Width 14.3 % (11.5-14.5) Platelet Count 214 x10^3/uL (140-400) Neutrophils (%) (Auto) 48 % (31-73) Lymphocytes (%) (Auto) 40 % (24-48) Monocytes (%) (Auto) 8 % (0-9) Eosinophils (%) (Auto) 3 % (0-3) Basophils (%) (Auto) 1 % (0-3) Neutrophils # (Auto) 1.9 x10^3uL (1.8-7.7) Lymphocytes # (Auto) 1.6 x10^3/uL (1.0-4.8) Monocytes # (Auto) 0.3 x10^3/uL (0.0-1.1) Eosinophils # (Auto) 0.1 x10^3/uL (0.0-0.7) Basophils # (Auto) 0.0 x10^3/uL (0.0-0.2) D-Dimer (Vijaya) 0.40 ug/mlFEU (0.00-0.50) Sodium Level 140 mmol/L (136-145) Potassium Level 3.8 mmol/L (3.5-5.1) Chloride Level 104 mmol/L (98-107) Carbon Dioxide Level 28 mmol/L (21-32) Anion Gap 8 (6-14) Blood Urea Nitrogen 7 mg/dL (7-20) Creatinine 0.6 mg/dL (0.6-1.0) Estimated GFR (Cockcroft-Gault) 139.3 BUN/Creatinine Ratio 12 (6-20) Glucose Level 87 mg/dL (70-99) Calcium Level 9.0 mg/dL (8.5-10.1) Magnesium Level 1.8 mg/dL (1.8-2.4) Total Bilirubin 0.3 mg/dL (0.2-1.0) Aspartate Amino Transf (AST/SGOT) 12 U/L (15-37) Alanine Aminotransferase (ALT/SGPT) 19 U/L (14-59) Alkaline Phosphatase 58 U/L (46-116) Troponin I Quantitative < 0.017 ng/mL (0.000-0.055) < 0.017 ng/mL (0.000-0.055) < 0.017 ng/mL (0.000-0.055) Total Protein 7.3 g/dL (6.4-8.2) Albumin 3.7 g/dL (3.4-5.0) Albumin/Globulin Ratio 1.0 (1.0-1.7) Thyroid Stimulating Hormone (TSH) 0.606 uIU/mL (0.358-3.74) Bedside Urine HCG, Qualitative Hcg negative (Negative) Triglycerides Level 68 mg/dL (0-150) Cholesterol Level 192 mg/dL (0-200) LDL Cholesterol, Calculated 119 mg/dL (0-100) VLDL Cholesterol, Calculated 14 mg/dL (0-40) Non-HDL Cholesterol Calculated 133 mg/dL (0-129) HDL Cholesterol 59 mg/dL (40-60) Cholesterol/HDL Ratio 3.3 Laboratory Tests Test 05/02/17 13:10 05/02/17 13:26 05/02/17 19:55 05/03/17 02:05 White Blood Count 4.0 x10^3/uL (4.0-11.0) Red Blood Count 4.30 x10^6/uL (3.50-5.40) Hemoglobin 11.4 g/dL (12.0-15.5) Hematocrit 35.9 % (36.0-47.0) Mean Corpuscular Volume 84 fL (79-100) Mean Corpuscular Hemoglobin 27 pg (25-35) Mean Corpuscular Hemoglobin Concent 32 g/dL (31-37) Red Cell Distribution Width 14.3 % (11.5-14.5) Platelet Count 214 x10^3/uL (140-400) Neutrophils (%) (Auto) 48 % (31-73) Lymphocytes (%) (Auto) 40 % (24-48) Monocytes (%) (Auto) 8 % (0-9) Eosinophils (%) (Auto) 3 % (0-3) Basophils (%) (Auto) 1 % (0-3) Neutrophils # (Auto) 1.9 x10^3uL (1.8-7.7) Lymphocytes # (Auto) 1.6 x10^3/uL (1.0-4.8) Monocytes # (Auto) 0.3 x10^3/uL (0.0-1.1) Eosinophils # (Auto) 0.1 x10^3/uL (0.0-0.7) Basophils # (Auto) 0.0 x10^3/uL (0.0-0.2) D-Dimer (Vijaya) 0.40 ug/mlFEU (0.00-0.50) Sodium Level 140 mmol/L (136-145) Potassium Level 3.8 mmol/L (3.5-5.1) Chloride Level 104 mmol/L (98-107) Carbon Dioxide Level 28 mmol/L (21-32) Anion Gap 8 (6-14) Blood Urea Nitrogen 7 mg/dL (7-20) Creatinine 0.6 mg/dL (0.6-1.0) Estimated GFR (Cockcroft-Gault) 139.3 BUN/Creatinine Ratio 12 (6-20) Glucose Level 87 mg/dL (70-99) Calcium Level 9.0 mg/dL (8.5-10.1) Magnesium Level 1.8 mg/dL (1.8-2.4) Total Bilirubin 0.3 mg/dL (0.2-1.0) Aspartate Amino Transf (AST/SGOT) 12 U/L (15-37) Alanine Aminotransferase (ALT/SGPT) 19 U/L (14-59) Alkaline Phosphatase 58 U/L (46-116) Troponin I Quantitative < 0.017 ng/mL (0.000-0.055) < 0.017 ng/mL (0.000-0.055) < 0.017 ng/mL (0.000-0.055) Total Protein 7.3 g/dL (6.4-8.2) Albumin 3.7 g/dL (3.4-5.0) Albumin/Globulin Ratio 1.0 (1.0-1.7) Thyroid Stimulating Hormone (TSH) 0.606 uIU/mL (0.358-3.74) Bedside Urine HCG, Qualitative Hcg negative (Negative) Triglycerides Level 68 mg/dL (0-150) Cholesterol Level 192 mg/dL (0-200) LDL Cholesterol, Calculated 119 mg/dL (0-100) VLDL Cholesterol, Calculated 14 mg/dL (0-40) Non-HDL Cholesterol Calculated 133 mg/dL (0-129) HDL Cholesterol 59 mg/dL (40-60) Cholesterol/HDL Ratio 3.3 Brief Hospital Course Ms. 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 Lopez , has been wanting to lose weight and trying so hard but claims no results with exercise etc, comes in bec of CP started 4 hrs ago, midsternal, combination of dull and sharp on description, squeezing and also feels like someone on her chest, NO radiation, no SOA, no diaphoresis, NO known cardiac hx, no vices, no family hx premature CAD, HAs been taking a diet pill/appetite suppressant started 2 weeks ago, phentarmine, 37.5 even cuts the pill to 1/2 tab a day, She has lost 10 lbs since starting it. SHe claims she has had CP even before the pill but this time much worse. Weight 270 lbs EKG some ectopic atria, beats but no stemi, labs ok Unknown TSH status AHd the midsternal CP while I was seeing her SBP 160./70, HR 60s COURSE; Echo being done, IF normal then home with advsie to stop phentarmine, NO new cardiac meds per cards, Dw cards Discharge Information Condition at Discharge: Improved, Stable Disposition/Orders: D/C to Home Scheduled Citalopram Hydrobromide (Celexa), 20 MG PO QHS, (Reported) Scheduled PRN Albuterol Sulfate (Proair Hfa Inhaler), 1 PUFF INH PRN Q6HRS PRN for SHORTNESS OF BREATH Diphenhydramine Hcl (Benadryl), 25 MG PO PRN Q4HRS PRN for ALLERGIES, (Reported) Discontinued Medications Azithromycin (Zithromax Tri-Michel), 1 TAB PO DAILY Discontinued Reason: not taking Doxycycline Hyclate (Doxycycline Hyclate), 1 CAP PO BID Discontinued Reason: not taking Prednisone (Prednisone), 40 MG PO DAILY Discontinued Reason: not taking MARIAA PELAYO MD May 03, 2017 11:15
--- NOTE | 2017-05-03 13:53 | CARD ---
APPROVED REPORT EXAM: Two-dimensional and M-mode echocardiogram with Doppler and color Doppler. Other Information Quality : Average Rhythm : NSR INDICATION Chest Pain VSD closure at 6 months old 2D DIMENSIONS RVDd2.7 (2.9-3.5cm)Left Atrium(2D)4.1 (1.6-4.0cm) IVSd1.2 (0.7-1.1cm)Aortic Root(2D)2.5 (2.0-3.7cm) LVDd4.8 (3.9-5.9cm)LVOT Diameter2.0 (1.8-2.4cm) PWd1.2 (0.7-1.1cm)LVDs3.0 (2.5-4.0cm) FS (%) 35.3 %SV72.4 ml LVEF(%)65.2 (>50%) Aortic Valve AoV Peak Sesar.134.4cm/sAoV VTI28.3cm AO Peak GR.7.2mmHgLVOT Peak Sesar.92.9cm/s LVOT VTI 20.32cmAO Mean GR.5mmHg JIM (VMAX)2.73yn4KUW (VTI)2.29cm2 Mitral Valve MV E Yhwathoz03.8cm/sMV DECEL [id number] MV A Bxxgggxf18.8cm/sMV IEY53en E/A Ratio1.5MV A Xtihrtzo515pw MVA (PHT)3.42cm2 TDI E/Lateral E'5.3E/Medial E'7.5 Pulmonary Valve PV Peak Oynegzcl000.3cm/sPV Peak Grad.7mmHg RVOT VTI22.0cm Tricuspid Valve TR P. Gzrrrywl905xa/sRAP FSSLVACD4xdAt TR Peak Gr.73gtDdRKIY20ykPl LEFT VENTRICLE The left ventricle is normal size. There is borderline concentric left ventricular hypertrophy. Left ventricle systolic function is normal. The Ejection Fraction is 60-65%. There is normal LV segmental wall motion. The left ventricular diastolic function and filling is normal for age. There is no ventr icular septal defect visualized. RIGHT VENTRICLE The right ventricle is normal size. The right ventricular systolic function is normal. ATRIA The left atrium size is normal. The right atrium size is normal. The interatrial septum is intact wit h no evidence for an atrial septal defect or patent foramen ovale as noted on 2-D or Doppler imaging. AORTIC VALVE The aortic valve is normal in structure and function. The aortic valve is trileaflet. Doppler and Col or Flow revealed no significant aortic regurgitation. There is no significant aortic valvular stenosi s. MITRAL VALVE The mitral valve is normal in structure and function. There is no mitral valve stenosis. Doppler and Color Flow revealed trace to mild mitral regurgitation. TRICUSPID VALVE The tricuspid valve is normal in structure and function. Doppler and Color Flow revealed mild tricusp id regurgitation. The PA pressure was estimated at 27 mmHg. There is no tricuspid valve stenosis. PULMONIC VALVE The pulmonic valve is not well visualized. Doppler and Color Flow revealed no pulmonic valvular regur gitation. There is no pulmonic valvular stenosis. GREAT VESSELS The aortic root is normal in size. The ascending aorta is normal in size. Normal pulmonary venous ivan w (Doppler). The IVC is normal in size and collapses >50% with inspiration. PERICARDIAL EFFUSION There is no evidence of significant pericardial effusion. Critical Notification Critical Value: No <Conclusion> The left ventricle is normal size. Left ventricle systolic function is normal. The Ejection Fraction is 60-65%. There is normal LV segmental wall motion. There is borderline concentric left ventricular hypertrophy. There is no ventricular septal defect visualized. The interatrial septum is intact with no evidence for an atrial septal defect or patent foramen ovale as noted on 2-D or Doppler imaging. There is no significant aortic valvular stenosis. Doppler and Color Flow revealed no significant aortic regurgitation. Doppler and Color Flow revealed trace to mild mitral regurgitation. Doppler and Color Flow revealed mild tricuspid regurgitation. The PA pressure was estimated at 27 mmHg.
[2017-05-03 14:44] VITALS: BP 102/49
== END 2017-05-03 16:02 | disposition home or self-care (01) | DRG 311 ==
LOC: ER 12:19 → 2 NORTH 14:13
PROVIDERS: ADMIT Internal Medicine; ATTEND Internal Medicine
DX: I20.1 Angina pectoris with documented spasm (principal); Z68.42 Body mass index [BMI] 45.0-49.9, adult; F41.9 Anxiety disorder, unspecified; E66.01 Morbid (severe) obesity due to excess calories; J45.909 Unspecified asthma, uncomplicated; I49.1 Atrial premature depolarization; R03.0 Elevated blood-pressure reading, without diagnosis of hypertension; T50.5X5A Adverse effect of appetite depressants, initial encounter; Z88.8 Allergy status to other drugs, medicaments and biological substances; Z88.1 Allergy status to other antibiotic agents; Z79.899 Other long term (current) drug therapy; Z87.74 Personal history of (corrected) congenital malformations of heart and circulatory system
CPT/HCPCS: 36415; 71010; 80053; 80061; 81025; 83735; 84443; 84484; 85025; 85379; 93005; 93306; 96374; J2270; 99285-25

== ENCOUNTER 2017-08-01 07:57 | Emergency (ER) | payer SELFPAY, OTHER ==
[2017-08-01] MEDS: predniSONE 20 MG TABLET PO (08:34)
[2017-08-01 08:51] LABS: INFLUENZA A PATIENT NEGATIVE (NEGATIVE); INFLUENZA B PATIENT NEGATIVE (NEGATIVE); OBC FLU VALID
[2017-08-01] MEDS: IPRATROPIUM BROMIDE 0.5 MG/2.5 ML NEBU. NEB (08:51)
[2017-08-01] MEDS: ALBUTEROL SULFATE 2.5 MG/3 ML NEBU. CONT NEB (08:52)
== END 2017-08-01 10:40 | disposition home or self-care (01) ==
LOC: ER 07:57
DX: J45.901 Unspecified asthma with (acute) exacerbation (principal); Z88.8 Allergy status to other drugs, medicaments and biological substances
CPT/HCPCS: 87804; 87804-59; 94644; 99285-25; J7512; J7613; J7644

== ENCOUNTER 2017-08-03 11:28 | Emergency (ER) | payer OTHER ==
[2017-08-03 12:42] LABS: INFLUENZA A PATIENT POSITIVE (NEGATIVE); INFLUENZA B PATIENT NEGATIVE (NEGATIVE); OBC FLU VALID
[2017-08-03] MEDS: IPRATRPIUM/ALBUTEROL 0.5/2.5MG 3 ML NEBU. NEB (12:42)
== END 2017-08-03 12:55 | disposition home or self-care (01) ==
LOC: ER 11:28
DX: J09.X2 Influenza due to identified novel influenza A virus with other respiratory manifestations (principal); J45.21 Mild intermittent asthma with (acute) exacerbation; F41.0 Panic disorder [episodic paroxysmal anxiety]; Z79.899 Other long term (current) drug therapy; Z88.8 Allergy status to other drugs, medicaments and biological substances
CPT/HCPCS: 71046; 87804; 87804-59; 94640; 99285-25; J7620

== ENCOUNTER 2017-08-19 22:57 | Emergency (ER) | payer OTHER ==
[2017-08-19] MEDS ORDERED: 0.9 % SODIUM CHLORIDE 10 ML DISP.SYRIN. IV ×2 (23:15)
[2017-08-19] MEDS: ASPIRIN CHEWABLE 81 MG TABLET. PO ×2 (23:25)
[2017-08-19] MEDS: IV NORMAL SALINE 1000ML BAG 1,000 ML IV ×2 (23:26)
[2017-08-19] MEDS: HYDROmorphone 2 MG/ML VIAL IV/SQ ×2 (23:26)
[2017-08-19 23:47] LABS: ADD MAN DIFF? NO
[2017-08-19 23:49] LABS: URINE HCG POC HCG NEGATIVE (Negative)
[2017-08-19 23:50] LABS: BASO # 0.1 x10^3/uL (0.0-0.2); BASO % 1 % (0-3); EOS # 0.2 x10^3/uL (0.0-0.7); EOS % 3 % (0-3); HEMATOCRIT 34.7 % (36.0-47.0); HEMOGLOBIN 11.1 g/dL (12.0-15.5); LYMPH # 2.5 x10^3/uL (1.0-4.8); LYMPH % 37 % (24-48); MEAN CORPUSCULAR HEMOGLOBIN 26 pg (25-35); MEAN CORPUSCULAR HGB CONC 32 g/dL (31-37); MEAN CORPUSCULAR VOLUME 83 fL (79-100); MONO # 0.6 x10^3/uL (0.0-1.1); MONO % 9 % (0-9); NEUT # 3.4 x10^3uL (1.8-7.7); NEUT % 51 % (31-73); PLATELET COUNT 242 x10^3/uL (140-400); RED BLOOD COUNT 4.19 x10^6/uL (3.50-5.40); RED CELL DISTRIBUTION WIDTH 14.9 % (11.5-14.5); WHITE BLOOD COUNT 6.7 x10^3/uL (4.0-11.0)
[2017-08-19 23:58] LABS: BLOOD UREA NITROGEN 10 mg/dL (7-20); CALCIUM 8.5 mg/dL (8.5-10.1); CREATININE 0.5 mg/dL (0.6-1.0); GFR 171.9; GLUCOSE 84 mg/dL (70-99); SODIUM 141 mmol/L (136-145)
[2017-08-19 23:59] LABS: ANION GAP 10 (6-14); CARBON DIOXIDE 26 mmol/L (21-32); CHLORIDE 105 mmol/L (98-107); INR 1.1 (0.8-1.1); POTASSIUM 4.1 mmol/L (3.5-5.1); PROTHROMBIN TIME PATIENT 13.4 SEC (11.7-14.0)
[2017-08-20 00:02] LABS: D-DIMER 0.35 ug/mlFEU (0.00-0.50)
[2017-08-20 00:05] LABS: ALBUMIN 3.6 g/dL (3.4-5.0); ALK PHOS 59 U/L (46-116); ALT (SGPT) 16 U/L (14-59); AST (SGOT) 13 U/L (15-37); DIRECT BILIRUBIN < 0.1 mg/dL (0.0-0.2); LIPASE 96 U/L (73-393); MAGNESIUM 1.7 mg/dL (1.8-2.4); TOTAL BILIRUBIN 0.2 mg/dL (0.2-1.0); TOTAL PROTEIN 7.2 g/dL (6.4-8.2)
[2017-08-20 00:07] LABS: TROPONINI < 0.017 ng/mL (0.000-0.055)
[2017-08-20 00:11] LABS: THYROID STIM HORMONE (TSH) 0.664 uIU/mL (0.358-3.74)
[2017-08-20 00:14] LABS: CKMB INDEX 0.4 % (0-4); CKMB MASS 0.6 ng/mL (0.0-3.6); CREATINE KINASE 137 U/L (26-192)
[2017-08-20 00:14] LABS: NT-PRO BNP 70 pg/mL (0-124)
[2017-08-20] MEDS: HYDROmorphone 2 MG/ML VIAL IV/SQ ×2 (00:14)
== END 2017-08-20 00:44 | disposition home or self-care (01) ==
LOC: ER 08-20 00:44
DX: R07.89 Other chest pain (principal); R00.2 Palpitations; R06.02 Shortness of breath; R51 Headache; R42 Dizziness and giddiness; J45.909 Unspecified asthma, uncomplicated; Z79.82 Long term (current) use of aspirin; Z88.5 Allergy status to narcotic agent; Z88.8 Allergy status to other drugs, medicaments and biological substances
CPT/HCPCS: 36415; 71046; 80048; 80076; 81025; 82553; 83690; 83735; 83880; 84443; 84484; 85025; 85379; 85610; 93005; 96361; 96374; 96376; 99285-25; J1170; J7030

== ENCOUNTER 2017-11-03 13:48 | Emergency (ER) | payer OTHER | END 2017-11-03 14:22 | disposition home or self-care (01) | LOC: ER 14:22 | DX: N61.1 Abscess of the breast and nipple (principal); J45.909 Unspecified asthma, uncomplicated; Z88.8 Allergy status to other drugs, medicaments and biological substances | CPT/HCPCS: 10060; 87205; 99284-25 ==

== ENCOUNTER → 2017-11-03 | Outpatient (CLI) | payer OTHER | END | disposition home or self-care (01) | LOC: KCIC 09:23 | DX: M54.5 Low back pain (principal) | CPT/HCPCS: 72100 ==

== ENCOUNTER 2017-11-21 10:24 | Emergency (ER) | payer OTHER ==
[2017-11-21 10:40] LABS: URINE HCG POC HCG NEGATIVE (Negative)
[2017-11-21 10:49] LABS: BILIRUBIN,URINE NEGATIVE (NEG); CLARITY,URINE CLEAR; COLOR,URINE YELLOW; GLUCOSE,URINE NEGATIVE (NEG); NITRITE,URINE NEGATIVE (NEG); PH,URINE 5.5; PROTEIN,URINE NEGATIVE (NEG-TRACE); UROBILINOGEN,URINE 0.2 mg/dL (0.2 mg/dL)
[2017-11-21 11:05] LABS: BACTERIA,URINE FEW /HPF (0-FEW); RBC,URINE OCC /HPF (0-2); SQUAMOUS EPITHELIAL CELL,UR FEW /LPF
[2017-11-21 11:22] LABS: ADD MAN DIFF? NO
[2017-11-21 11:25] LABS: AGAP ISTAT 14 mmol/L (6-14); BUN ISTAT 10 mg/dL (8-26); CHLORIDE ISTAT 102 mmol/L (98-110); CREATININE ISTAT 0.6 mg/dL (0.5-1.4); GLUCOSE ISTAT 91 mg/dL (70-99); HEMATOCRIT ISTAT 35 % (36-40); HEMOGLOBIN ISTAT 11.9 g/dL (12-15); ION CA ISTAT 1.18 mmol/L (1.13-1.32); SODIUM ISTAT 140 mmol/L (135-145); TOT CO2 ISTAT 29 mmol/L (23-32)
[2017-11-21] MEDS: KETOROLAC 30 MG/ML INJ. IV (11:25)
[2017-11-21 11:38] LABS: BASO % 1 % (0-3); EOS # 0.1 x10^3/uL (0.0-0.7); EOS % 2 % (0-3); HEMATOCRIT 34.1 % (36.0-47.0); HEMOGLOBIN 11.1 g/dL (12.0-15.5); LYMPH # 1.4 x10^3/uL (1.0-4.8); LYMPH % 33 % (24-48); MEAN CORPUSCULAR HEMOGLOBIN 27 pg (25-35); MEAN CORPUSCULAR HGB CONC 33 g/dL (31-37); MEAN CORPUSCULAR VOLUME 83 fL (79-100); MONO # 0.3 x10^3/uL (0.0-1.1); MONO % 8 % (0-9); NEUT # 2.5 x10^3uL (1.8-7.7); NEUT % 57 % (31-73); PLATELET COUNT 228 x10^3/uL (140-400); RED BLOOD COUNT 4.13 x10^6/uL (3.50-5.40); RED CELL DISTRIBUTION WIDTH 15.1 % (11.5-14.5); WHITE BLOOD COUNT 4.4 x10^3/uL (4.0-11.0)
[2017-11-21 11:55] LABS: ALBUMIN 3.6 g/dL (3.4-5.0); ALK PHOS 57 U/L (46-116); ALT (SGPT) 20 U/L (14-59); AST (SGOT) 15 U/L (15-37); DIRECT BILIRUBIN < 0.1 mg/dL (0.0-0.2); LIPASE 106 U/L (73-393); TOTAL BILIRUBIN 0.3 mg/dL (0.2-1.0); TOTAL PROTEIN 6.8 g/dL (6.4-8.2)
[2017-11-21] MEDS: IOHEXOL 300 MG/ML 100ML VIAL. IV (12:10)
[2017-11-21] MEDS: MORPHINE SULFATE 4 MG/ML DISP.SYRIN. IV (13:08)
== END 2017-11-21 13:37 | disposition home or self-care (01) ==
LOC: ER 10:24
DX: R10.9 Unspecified abdominal pain (principal); R30.0 Dysuria; J45.909 Unspecified asthma, uncomplicated; Z88.8 Allergy status to other drugs, medicaments and biological substances
CPT/HCPCS: 36415; 74177; 80047; 80076; 81001; 81025; 83690; 85025; 96374; 96375; 99285-25; J1885; J2270; Q9967

== ENCOUNTER 2017-12-29 20:44 | Emergency (ER) | payer OTHER ==
[2017-12-29] MEDS ORDERED: ASPIRIN CHEWABLE 81 MG TABLET. PO (21:30)
[2017-12-29 21:37] LABS: ADD MAN DIFF? NO
[2017-12-29 21:38] LABS: BASO % 1 % (0-3); EOS # 0.2 x10^3/uL (0.0-0.7); EOS % 3 % (0-3); HEMATOCRIT 36.4 % (36.0-47.0); HEMOGLOBIN 11.8 g/dL (12.0-15.5); LYMPH # 2.3 x10^3/uL (1.0-4.8); LYMPH % 38 % (24-48); MEAN CORPUSCULAR HEMOGLOBIN 27 pg (25-35); MEAN CORPUSCULAR HGB CONC 32 g/dL (31-37); MEAN CORPUSCULAR VOLUME 82 fL (79-100); MONO # 0.4 x10^3/uL (0.0-1.1); MONO % 7 % (0-9); NEUT # 3.2 x10^3uL (1.8-7.7); NEUT % 53 % (31-73); PLATELET COUNT 191 x10^3/uL (140-400); RED BLOOD COUNT 4.44 x10^6/uL (3.50-5.40); RED CELL DISTRIBUTION WIDTH 15.3 % (11.5-14.5)
[2017-12-29] MEDS: LIDO:MAALOX 1:1 20 ML SINGLE DOSE. SWSW (21:42)
[2017-12-29 21:49] LABS: ANION GAP 5 (6-14); BLOOD UREA NITROGEN 15 mg/dL (7-20); BUN/CREATININE RATIO 25 (6-20); CALCIUM 9.4 mg/dL (8.5-10.1); CARBON DIOXIDE 30 mmol/L (21-32); CHLORIDE 103 mmol/L (98-107); CREATININE 0.6 mg/dL (0.6-1.0); GFR 138.5; GLUCOSE 96 mg/dL (70-99); SODIUM 138 mmol/L (136-145)
[2017-12-29 21:55] LABS: ALBUMIN 3.5 g/dL (3.4-5.0); ALBUMIN/GLOBULIN RATIO 0.9 (1.0-1.7); ALK PHOS 63 U/L (46-116); ALT (SGPT) 18 U/L (14-59); AST (SGOT) 17 U/L (15-37); TOTAL BILIRUBIN 0.3 mg/dL (0.2-1.0); TOTAL PROTEIN 7.2 g/dL (6.4-8.2)
[2017-12-29 21:59] LABS: D-DIMER 0.31 ug/mlFEU (0.00-0.50); TROPONINI < 0.017 ng/mL (0.000-0.055)
[2017-12-29 22:01] LABS: NT-PRO BNP 32 pg/mL (0-124)
== END 2017-12-29 22:25 | disposition home or self-care (01) ==
LOC: ER 20:44
DX: R07.89 Other chest pain (principal); J45.909 Unspecified asthma, uncomplicated; Z88.8 Allergy status to other drugs, medicaments and biological substances; Z79.82 Long term (current) use of aspirin
CPT/HCPCS: 36415; 71045; 80053; 83880; 84484; 85025; 85379; 93005; 99285-25

== ENCOUNTER 2018-05-03 11:35 | Emergency (ER) | payer OTHER ==
[~2018-05-03] VITALS: Ht 160 cm; Wt 120.2 kg
[~2018-05-03 11:35] MED LIST changes: +DIPH25CA58 PO; +ONDA4TAB10 PO; +OSEL75CA PO; +RANI300T3 PO; +SULF1TAB24 PO
[2018-05-03 11:48] VITALS: BP 126/62
[2018-05-03] MEDS: ALBUTEROL SULFATE 2.5 MG/3 ML NEBU. NEB ONE (12:06)
[2018-05-03] MEDS ORDERED: PROAIR HFA8.5 GM INH (12:14)
[2018-05-03] MEDS ORDERED: PRED50TA PO (12:14)
[2018-05-03] MEDS ORDERED: DOXY100T PO (12:14)
[2018-05-03] MEDS: ALBUTEROL SULFATE 2.5 MG/3 ML NEBU. CONT NEB ONE (12:20)
[2018-05-03] MEDS: predniSONE 10 MG TABLET PO ONE (12:34)
--- NOTE | 2018-05-03 17:51 | PHYS DOC ---
Past Medical History Past Medical History: Asthma, Other Additional Past Medical Histor: VSD, panic attacks Past Surgical History: , Other Additional Past Surgical Histo: open heart Alcohol Use: Occasionally Drug Use: None Adult General Chief Complaint Chief Complaint: ASTHMA HPI HPI Patient is a 32 year old female who presents with chief complaint of asthma exacerbation she has been sick for the last 3 days she went to urgent care and a steroid shot that she still felt short of breath so she came to the emergency room she has had some runny nose cough with occasional yellow sputum but mostly dry and some chest tightness with coughing history of asthma in the past she has run out of her inhaler sugar could be weather change she says Review of Systems Review of Systems Constitutional: Denies fever or chills [] Eyes: Denies change in visual acuity, redness, or eye pain [] HENT: Denies nasal congestion or sore throat [] GI: Denies abdominal pain, nausea, vomiting, bloody stools or diarrhea [] : Denies dysuria or hematuria [] Neurologic: Denies headache, focal weakness or sensory changes [] Endocrine: Denies polyuria or polydipsia [] All other systems were reviewed and found to be within normal limits, except as documented in this note. Current Medications Current Medications Current Medications Medications (Trade) Dose Ordered Sig/Kareen Start Time Stop Time Status Last Admin Dose Admin Albuterol Sulfate (Ventolin Neb Soln) 10 mg 1X ONCE 05/03/18 12:45 05/03/18 12:46 DC 05/03/18 12:20 10 MG Prednisone (Prednisone) 50 mg 1X ONCE 05/03/18 12:45 05/03/18 12:46 DC Allergies Allergies Allergies Coded Allergies Type Severity Reaction Last Updated Verified cefaclor Allergy Intermediate hives 05/02/17 Yes prochlorperazine edisylate Adverse Reaction Intermediate panic attack 05/03/17 Yes prochlorperazine maleate Adverse Reaction Intermediate panic attack 05/03/17 Yes Physical Exam Physical Exam Constitutional: Well developed, well nourished, no acute distress, non-toxic appearance. [] HENT: Normocephalic, atraumatic, bilateral external ears normal, oropharynx moist, no oral exudates, nose normal. [] Eyes: PERRLA, EOMI, conjunctiva normal, no discharge. [] Neck: Normal range of motion, no tenderness, supple, no stridor. [] Cardiovascular:Heart rate regular rhythm, no murmur [] Lungs & Thorax: Wheezing noted bilaterally mild to moderate patient speak in full sentences Abdomen: Bowel sounds normal, soft, no tenderness, no masses, no pulsatile masses. [] Skin: Warm, dry, no erythema, no rash. [] Back: No tenderness, no CVA tenderness. [] Extremities: No tenderness, no cyanosis, no clubbing, ROM intact, no edema. [] Neurologic: Alert and oriented X 3, normal motor function, normal sensory function, no focal deficits noted. [] Psychologic: Affect normal, judgement normal, mood normal. [] Current Patient Data Vital Signs Vital Signs Date Time Temp Pulse Resp B/P (MAP) Pulse Ox O2 Delivery O2 Flow Rate FiO2 05/03/18 12:21 Room Air 05/03/18 12:06 98 05/03/18 11:48 97.9 87 26 126/62 (83) 97.9 EKG EKG [] Radiology/Procedures Radiology/Procedures [] Course & Med Decision Making Course & Med Decision Making Pertinent Labs and Imaging studies reviewed. (See chart for details) []32-year-old female presenting with asthma exacerbation is overall pretty mild. Saturation is good on room air patient was given nebulizer with improvement. Patient is alert he received steroids today perception for prednisone doxycycline and albuterol was given I think she is safe for outpatient management Dragon Disclaimer Dragon Disclaimer This electronic medical record was generated, in whole or in part, using a voice recognition dictation system. Departure Departure Impression: Primary Impression: Asthma Disposition: 01 HOME, SELF-CARE Condition: STABLE Patient Instructions: Asthma Attacks, Prevention Scripts Doxycycline Hyclate (DOXYCYCLINE HYCLATE) 100 Mg Tablet 1 TAB PO BID, #14 TAB Prov: JAH HUMPHRIES MD 05/03/18 Albuterol Sulfate (PROAIR HFA INHALER) 8.5 Gm Hfa.aer.ad 1 PUFF INH PRN Q6HRS PRN for SHORTNESS OF BREATH, #1 INHALER 0 Refills Prov: JAH HUMPHRIES MD 05/03/18 Prednisone (PREDNISONE) 50 Mg Tablet 1 TAB PO DAILY, #5 TAB Prov: JAH HUMPHRIES MD 05/03/18 JAH HUMPHRIES MD May 03, 2018 17:51
== END 2018-05-03 13:22 | disposition home or self-care (01) ==
LOC: ER 11:35
DX: J45.901 Unspecified asthma with (acute) exacerbation (principal); Z88.8 Allergy status to other drugs, medicaments and biological substances
CPT/HCPCS: 94644; 99285; J7613

== ENCOUNTER → 2018-05-28 | Outpatient (CLI) | payer OTHER ==
[2018-05-03 11:48] VITALS: BP 126/62
[~2018-05-28] MED LIST changes: +DOXY100T PO; +PRED50TA PO
--- NOTE | 2018-05-28 08:40 | RAD ---
Indication:RUQ PAIN TECHNIQUE: Grayscale, color Doppler and spectral waveform is of the abdomen obtained. COMPARISON:CT from 11/21/2017 FINDINGS: The visualized pancreas is within normal limits. IVC is patent. Liver measures 16 cm in longest dimension with diffusely increased echogenicity and decreased through transmission. Main portal vein is patent. No gallstones, pericholecystic fluid or gallbladder wall thickening. The CBD measures 3 mm in diameter and is within normal limits. The right kidney measures 13 cm in length without hydronephrosis. Spleen is not optimally visualized but approximately measures 9.2 cm and is normal in size. Left kidney measures 13 cm in length without hydronephrosis. IMPRESSION: 1. Hepatic steatosis. 2. No cholelithiasis or sonographic evidence of acute cholecystitis. Electronically signed by: Graeme Chávez DO (05/28/2018 8:37 AM) [facility]
== END | disposition home or self-care (01) ==
LOC: US 07:13
PROVIDERS: ATTEND Nurse Practitioner Family
DX: K76.0 Fatty (change of) liver, not elsewhere classified (principal)
CPT/HCPCS: 76700

== ENCOUNTER 2018-06-18 07:52 | Emergency (ER) | payer OTHER ==
[~2018-06-18] VITALS: Ht 157.5 cm; Wt 123.8 kg
[2018-06-18] MEDS ORDERED: ONDANSETRON ODT 4 MG TAB.RAPDIS. PO ONE (08:15)
[2018-06-18] MEDS ORDERED: MECLIZINE HCL 12.5 MG TABLET. PO ONE (08:15)
--- NOTE | 2018-06-18 08:18 | PHYS DOC ---
Past Medical History Past Medical History: Asthma, Other Additional Past Medical Histor: VSD, panic attacks Past Surgical History: , Other Additional Past Surgical Histo: open heart Alcohol Use: Occasionally Drug Use: None Adult General Chief Complaint Chief Complaint: DIZZY/LIGHT HEADED HPI HPI Patient is a 32-year-old female who presents with complaint of dizziness that started yesterday. She describes the dizziness as feeling like she is spinning. She indicates that she feels nauseated most of the time and has had the feeling like she has a little blurred vision. She denies any chest pain or shortness of breath. She states that symptoms are worsened with walking and turning her head. She states that nothing is improving her symptoms. Review of Systems Review of Systems Constitutional: Denies fever or chills [] Respiratory: Denies cough or shortness of breath [] Cardiovascular: No additional information not addressed in HPI [] GI: Denies abdominal pain. Complains of nausea without vomiting. [] Neurologic: Denies headache, focal weakness or sensory changes. Complains of vertiginous dizziness. [] All other systems were reviewed and found to be within normal limits, except as documented in this note. Current Medications Current Medications Current Medications Medications (Trade) Dose Ordered Sig/Kareen Start Time Stop Time Status Last Admin Dose Admin Meclizine HCl (Antivert) 50 mg 1X ONCE 06/18/18 08:15 06/18/18 08:16 DC 06/18/18 08:36 50 MG Ondansetron HCl (Zofran Odt) 4 mg 1X ONCE 06/18/18 08:15 06/18/18 08:16 DC 06/18/18 08:35 4 MG Allergies Allergies Allergies Coded Allergies Type Severity Reaction Last Updated Verified cefaclor Allergy Intermediate hives 06/18/18 Yes prochlorperazine edisylate Adverse Reaction Intermediate panic attack Yes prochlorperazine maleate Adverse Reaction Intermediate panic attack 06/18/18 Yes Physical Exam Physical Exam Constitutional: Well developed, well nourished, no acute distress, non-toxic appearance. [] HENT: Normocephalic, atraumatic, bilateral external ears normal, oropharynx moist, no oral exudates, nose normal. [] Eyes: PERRLA, EOMI, conjunctiva normal, no discharge. [] Neck: Normal range of motion, no tenderness, supple. [] Cardiovascular:Heart rate regular rhythm [] Lungs & Thorax: Bilateral breath sounds clear to auscultation [] Abdomen: Bowel sounds normal, soft. [] Skin: Warm, dry, no erythema, no rash. [] Extremities: No tenderness, no cyanosis, no clubbing, ROM intact. [] Neurologic: Alert and oriented X 3, normal motor function, normal sensory function, no focal deficits noted. [] Current Patient Data Vital Signs Vital Signs Date Time Temp Pulse Resp B/P (MAP) Pulse Ox O2 Delivery O2 Flow Rate FiO2 06/18/18 07:55 97.5 62 18 139/63 (88) 100 Room Air 97.5 Lab Values Laboratory Tests Test 06/18/18 07:54 06/18/18 08:02 06/18/18 08:15 06/18/18 08:45 Urine Collection Type Unknown Urine Color Yellow Urine Clarity Clear Urine pH 6.0 Urine Specific [place] >=1.030 Urine Protein Negative mg/dL (NEG-TRACE) Urine Glucose (UA) Negative mg/dL (NEG) Urine Ketones (Stick) Negative mg/dL (NEG) Urine Blood Negative (NEG) Urine Nitrite Negative (NEG) Urine Bilirubin Negative (NEG) Urine Urobilinogen Dipstick 0.2 mg/dL (0.2 mg/dL) Urine Leukocyte Esterase Negative (NEG) Urine RBC Occ /HPF (0-2) Urine WBC Occ /HPF (0-4) Urine Squamous Epithelial Cells Mod /LPF Urine Bacteria Few /HPF (0-FEW) Urine Mucus Marked /LPF POC Urine HCG, Qualitative Hcg negative (Negative) White Blood Count 6.9 x10^3/uL (4.0-11.0) Red Blood Count 4.18 x10^6/uL (3.50-5.40) Hemoglobin 11.3 g/dL (12.0-15.5) L Hematocrit 34.1 % (36.0-47.0) L Mean Corpuscular Volume 82 fL (79-100) Mean Corpuscular Hemoglobin 27 pg (25-35) Mean Corpuscular Hemoglobin Concent 33 g/dL (31-37) Red Cell Distribution Width 14.9 % (11.5-14.5) H Platelet Count 260 x10^3/uL (140-400) Neutrophils (%) (Auto) 60 % (31-73) Lymphocytes (%) (Auto) 28 % (24-48) Monocytes (%) (Auto) 10 % (0-9) H Eosinophils (%) (Auto) 1 % (0-3) Basophils (%) (Auto) 1 % (0-3) Neutrophils # (Auto) 4.2 x10^3uL (1.8-7.7) Lymphocytes # (Auto) 1.9 x10^3/uL (1.0-4.8) Monocytes # (Auto) 0.7 x10^3/uL (0.0-1.1) Eosinophils # (Auto) 0.0 x10^3/uL (0.0-0.7) Basophils # (Auto) 0.1 x10^3/uL (0.0-0.2) Sodium Level 139 mmol/L (136-145) Potassium Level 4.1 mmol/L (3.5-5.1) Chloride Level 101 mmol/L (98-107) Carbon Dioxide Level 29 mmol/L (21-32) Anion Gap 9 (6-14) Blood Urea Nitrogen 13 mg/dL (7-20) Creatinine 0.7 mg/dL (0.6-1.0) Estimated GFR (Cockcroft-Gault) 115.9 BUN/Creatinine Ratio 19 (6-20) Glucose Level 95 mg/dL (70-99) Calcium Level 9.0 mg/dL (8.5-10.1) Total Bilirubin 0.2 mg/dL (0.2-1.0) Aspartate Amino Transferase (AST) 9 U/L (15-37) L Alanine Aminotransferase (ALT) 21 U/L (14-59) Alkaline Phosphatase 56 U/L (46-116) Total Protein 7.3 g/dL (6.4-8.2) Albumin 3.7 g/dL (3.4-5.0) Albumin/Globulin Ratio 1.0 (1.0-1.7) Laboratory Tests 06/18/18 08:15 Laboratory Tests 06/18/18 08:45 EKG EKG [] Interpretation Time: EKG demonstrates sinus bradycardia with rate of 55. No ST segment abnormalities are noted. Radiology/Procedures Radiology/Procedures [] Course & Med Decision Making Course & Med Decision Making Pertinent Labs and Imaging studies reviewed. (See chart for details) [] Dragon Disclaimer Dragon Disclaimer This electronic medical record was generated, in whole or in part, using a voice recognition dictation system. Departure Departure Impression: Primary Impression: Benign paroxysmal positional vertigo Disposition: 01 HOME, SELF-CARE Condition: STABLE Referrals: MARY LOU TORRES APRN (PCP) Patient Instructions: Benign Positional Vertigo Scripts Scopolamine (TRANSDERM-SCOP) 1 Each Patch.td72 1 PATCH TP Q3DAYS PRN for DIZZINESS, #4 PATCH Prov: KELLY LUU Jr. DO 06/18/18 Meclizine Hcl (MECLIZINE HCL) 25 Mg Tablet 25 MG PO PRN TID PRN for DIZZINESS, #30 dizziness Prov: KELLY LUU Jr. DO 06/18/18 Ondansetron Hcl (ZOFRAN) 4 Mg Tablet 4 MG PO PRN TID PRN for NAUSEA/VOMITING, #15 nausea/vomiting Prov: KELLY LUU Jr. DO 06/18/18 Problem Qualifiers Primary Impression: Benign paroxysmal positional vertigo Laterality: unspecified laterality Qualified Codes: H81.10 - Benign paroxysmal vertigo, unspecified ear KELLY LUU Jr. DO Jun 18, 2018 08:18
[2018-06-18 08:33] LABS: BASO # 0.1 x10^3/uL (0.0-0.2); BASO % 1 % (0-3); EOS % 1 % (0-3); HEMATOCRIT 34.1 % (36.0-47.0); HEMOGLOBIN 11.3 g/dL (12.0-15.5); LYMPH # 1.9 x10^3/uL (1.0-4.8); LYMPH % 28 % (24-48); MEAN CORPUSCULAR HEMOGLOBIN 27 pg (25-35); MEAN CORPUSCULAR HGB CONC 33 g/dL (31-37); MEAN CORPUSCULAR VOLUME 82 fL (79-100); MONO # 0.7 x10^3/uL (0.0-1.1); MONO % 10 % (0-9); NEUT # 4.2 x10^3uL (1.8-7.7); NEUT % 60 % (31-73); PLATELET COUNT 260 x10^3/uL (140-400); RED BLOOD COUNT 4.18 x10^6/uL (3.50-5.40); RED CELL DISTRIBUTION WIDTH 14.9 % (11.5-14.5); WHITE BLOOD COUNT 6.9 x10^3/uL (4.0-11.0)
[2018-06-18 08:36] LABS: BILIRUBIN,URINE NEGATIVE (NEG); CLARITY,URINE CLEAR; COLOR,URINE YELLOW; NITRITE,URINE NEGATIVE (NEG); PROTEIN,URINE NEGATIVE (NEG-TRACE); UROBILINOGEN,URINE 0.2 mg/dL (0.2 mg/dL)
[2018-06-18 08:58] LABS: BACTERIA,URINE FEW /HPF (0-FEW); RBC,URINE OCC /HPF (0-2); SQUAMOUS EPITHELIAL CELL,UR MOD /LPF; WBC,URINE OCC /HPF (0-4)
[2018-06-18 09:10] LABS: CREATININE 0.7 mg/dL (0.6-1.0); GFR 115.9; POTASSIUM 4.1 mmol/L (3.5-5.1)
[2018-06-18 09:16] LABS: ALBUMIN 3.7 g/dL (3.4-5.0); TOTAL BILIRUBIN 0.2 mg/dL (0.2-1.0); TOTAL PROTEIN 7.3 g/dL (6.4-8.2)
[2018-06-18] MEDS ORDERED: MECL25TA3 PO (09:31)
[2018-06-18] MEDS ORDERED: ONDA4TAB7 PO (09:31)
[2018-06-18] MEDS ORDERED: SCOP1PAT11 TP (09:31)
[2018-06-18 09:32] VITALS: BP 124/60
--- NOTE | 2018-06-18 10:08 | EKG ---
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
== END 2018-06-18 10:05 | disposition home or self-care (01) ==
LOC: ER 07:52
DX: H81.10 Benign paroxysmal vertigo, unspecified ear (principal); J45.909 Unspecified asthma, uncomplicated; Z88.8 Allergy status to other drugs, medicaments and biological substances
CPT/HCPCS: 36415; 80053; 81001; 81025; 85025; 93005; 99284; J8597; Q0162

== ENCOUNTER → 2018-07-02 | Outpatient (CLI) | payer OTHER ==
[2018-06-18 09:32] VITALS: BP 124/60
[~2018-07-02] MED LIST changes: +MECL25TA3 PO; +ONDA4TAB7 PO; +SCOP1PAT11 TP
--- NOTE | 2018-07-03 08:19 | RAD ---
Radionuclide hepatobiliary scan with gallbladder ejection fraction, 07/02/2018: HISTORY: Abdominal pain Following IV injection of 6.0 mCi of technetium 99m Choletec there was prompt uptake of the radionuclide from the blood stream by the liver. Activity is present in the gallbladder and small bowel at 15 minutes. Additional imaging of the gallbladder was then performed following oral ingestion of 8 ounces of the Boost supplement. Cholecystokinin is not currently available. The gallbladder ejection fraction was calculated at 23 percent. IMPRESSION: 1. No evidence of cystic duct or common bile duct obstruction. 2. Low gallbladder ejection fraction of 23 percent. Electronically signed by: Blu Manuel MD (07/03/2018 8:16 AM) [facility]
== END | disposition home or self-care (01) ==
LOC: NM 11:26
PROVIDERS: ATTEND Internal Medicine Gastroenterology
DX: J84.10 Pulmonary fibrosis, unspecified (principal)
CPT/HCPCS: 78227; A9537

== ENCOUNTER → 2018-07-25 | Day surgery (SDC) | payer OTHER ==
[~2018-07-25] VITALS: Ht 161.3 cm; Wt 120.7 kg
[~2018-07-25] MED LIST changes: +ACET500T68 PO; +ALBU2.5V8 INH; +ALPR0.25 PO; +BISM262T9 PO; +BUPIVAC MPF-EPI 0.5%-1:200000 30 ML VIAL. ONE; +DEXAMETHASONE SOD PHOS 20 MG/5 ML VIAL. ONE; +GLYCOPYRROLATE 1 MG/5 ML VIAL. ONE; +HYDR-2761 PO; +HYDROmorphone 2 MG/ML VIAL IV PRN; +IBUP-1060 PO; +IOHEXOL 300 MG/ML 100ML VIAL. ONE; +IV RINGERS,LACTATED 1000ML 1,000 ML IV SCH; +KETOROLAC 30 MG/ML INJ FOR OR. INJ ONE; +LIDOCAINE 1% PF 2 ML VIAL. ID PRN; +LIDOCAINE 2% PF Vial for OR 5 ML VIAL. ONE; +MORPHINE SULFATE 2 MG/ML VIAL. IV PRN; +NAPR220C4 PO; +NEOSTIGMINE METHYLSULFATE 5 MG/5 ML SYRINGE. ONE; +NYST15CR TP; +ONDANSETRON PF 4 MG/2 ML VIAL. IM ONE; +ONDANSETRON PF 4 MG/2 ML VIAL. ONE; +OXYC1TAB15 PO; -PROAIR HFA8.5 GM INH; +PROPOFOL 20 ML IV ONE; +ROCURONIUM 50 MG/5 ML VIAL. ONE; +SEVOFLURANE 61 TO 120 MINUTES. IH ONE; +SURGICEL HEMOSTAT 4X8 EACH. ONE; +fentaNYL PF VIAL 100 MCG/2 ML VIAL ONE; +oxyCODONE/APAP 5/325 1 TAB TABLET PO ONE
[2018-07-25 07:30] LABS: U PREG PATIENT NEGATIVE (NEG)
--- NOTE | 2018-07-25 08:35 | RAD ---
Intraoperative cholangiogram July 25, 2018 INDICATION: Cholecystectomy. COMPARISON: Ultrasound abdomen May 28, 2018 TECHNIQUE: Fluoroscopy was provided for use during retrograde cholangiogram. Fluoroscopy time: 22 seconds. Fluoroscopy images: 3 FINDINGS: There is opacification of the intrahepatic and extrahepatic biliary system. Status post cholecystectomy. No definite filling defects are identified on the provided images. There is opacification of the duodenum. IMPRESSION: 1. Fluoroscopy provided during intraoperative cholangiogram without definite filling defects. 2. Please refer to the separate operative report for further details. Electronically signed by: Cherelle Sandy MD (07/25/2018 8:31 AM) [id number]
--- NOTE | 2018-07-25 08:51 | PDOC4 ---
Operative Note Operative Note Operative Note: Preoperative Diagnosis: Biliary dyskinesia Postoperative Diagnosis: Same Procedure: Laparoscopic cholecystectomy with intraoperative cholangiogram Surgeons: Michele [employer] Project Manager: Rona ANDERSON Anesthesia: Gen. Estimated Blood Loss: 10 mL Specimen: Gallbladder to pathology Drains: None Complications: None Indications: The patient is a 32-year-old female who is referred with a diagnosis of biliary dyskinesia. Surgical treatment was offered by means of a laparoscopic cholecystectomy. The risks of surgery were discussed which include bleeding, infection, bile duct injury, bile leak, pain, the potential for additional surgeries or procedures. The patient understands and would like to proceed. Description: The patient was taken to the operating room and laid supine on the operating table. General anesthesia was performed. The abdomen was prepped with ChloraPrep and draped in a standard surgical fashion. A small infraumbilical incision was made with a scalpel. The Veress needle was then inserted and a pneumoperitoneum was then created. A 5 mm trocar was then inserted and the laparoscope was introduced. In the upper midabdomen a 5 mm trocar was inserted and in the right upper quadrant two 2.3 mm mini lap graspers were inserted. The gallbladder was retracted cephalad. The cystic duct was dissected free from surrounding tissues. One clip was placed on the duct near the gallbladder junction. An opening was made in the duct and a cholangiocatheter placed within and secured with a clip. Using contrast dye and fluoroscopy an intraoperative cholangiogram was performed that appeared unremarkable. The clip and catheter were then withdrawn. Three clips were placed on the cystic duct and it was divided. The cystic artery was then identified, dissected free, doubly clipped and divided as well. The gallbladder was then mobilized away from the liver with cautery. The umbilical 5 millimeter trocar was exchanged for an 11 millimeter trocar. The gallbladder was then placed in an endoscopic bag and extracted at the umbilical trocar site. The fascia there was closed with an 0 Vicryl suture. All blood and irrigation fluid was suctioned and hemostasis was good. The remaining ports were removed and the pneumoperitoneum was relieved. The skin incisions were injected with half percent Marcaine with epinephrine, and all were closed using 4-0 Monocryl suture. Steri-Strips and dressings were then applied. The patient tolerated the procedure well and was sent to the recovery room in stable condition. At the end of the case all counts were correct. SIXTO DUMONT MD Jul 25, 2018 08:51
--- NOTE | 2018-07-25 08:52 | DISCH ---
DISCHARGE INSTRUCTIONS Condition on Discharge Condition on Discharge: Stable Activity After Discharge Activity Instructions for Disc: Other, see below (no lifting over 20 lbs X 2 weeks) Diet after Discharge Diet after Discharge: Regular Wound Incision Care Wound/Incision Care: Other, see below (may remove bandaids and shower tomorrow) Follow-Up Follow up with: Dr Dumont in office in 2 weeks, call for appt [phone] SIXTO DUMONT MD Jul 25, 2018 08:52
[2018-07-25] MEDS: fentaNYL PF VIAL 100 MCG/2 ML VIAL IV PRN ×4 (09:08→09:32)
[2018-07-25 10:40] VITALS: BP 122/68
--- NOTE | 2018-07-26 18:07 | PATHOLOGY ---
[facility] Accession Number: [id number] . 01 Material submitted: . GALLBLADDER . 01 Clinical history: . Biliary dyskinesia . 02 Diagnosis: Gallbladder, laparoscopic cholecystectomy: - Chronic cholecystitis, mild. MBR/07/26/2018 . 02 Comment: There are no calculi identified within the gallbladder lumen or specimen container. There is no evidence of malignancy. 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 02 Electronically signed: . Jorge Berger MD, Pathologist NPI- [id number] . 01 Gross description: . The specimen is received in formalin, labeled "[place], Olisha, gallbladder", is an intact, distended gallbladder measuring 9.0 x 3.0 x 2.5 cm with a glistening, smooth and purple-green serosa. The lumen is filled with yellow-green viscous bile and no discrete calculi. The mucosa is a henley-brown, granular and the wall has an average thickness of 0.1 cm. No discrete masses are identified. Physics Teacher tissue is submitted in A1. ([facility]; 07/25/2018) [facility]S/[facility]S . 02 Pathologist provided ICD-10: K81.1 . 02 CPT . 037709 Specimen Comment: A courtesy copy of this report has been sent to Specimen Comment: [phone], . Specimen Comment: Report sent to and Performed at: 01 [facility] [address] [facility] [address], [place] [id number] MD Manpreet Nelson MD Phone: [phone] Performed at: 02 [facility] [address] [place], [place] [id number] MD Jorge Berger MD Phone: [phone]
== END ==
LOC: SURG 06:10
PROVIDERS: ATTEND Surgery
DX: K81.1 Chronic cholecystitis (principal)
CPT/HCPCS: 47563; 74300; 81025; J1100; J1885; J1956; J2001; J2405; J2704; J2710; J3010; J3490; Q9967; A7015; J7030; J7120

== ENCOUNTER 2018-08-01 01:23 | Emergency (ER) | payer OTHER ==
[~2018-08-01] VITALS: Ht 167.6 cm; Wt 120.7 kg
[~2018-08-01 01:23] MED LIST changes: -BUPIVAC MPF-EPI 0.5%-1:200000 30 ML VIAL. ONE; -DEXAMETHASONE SOD PHOS 20 MG/5 ML VIAL. ONE; -GLYCOPYRROLATE 1 MG/5 ML VIAL. ONE; -HYDROmorphone 2 MG/ML VIAL IV PRN; -IOHEXOL 300 MG/ML 100ML VIAL. ONE; -IV RINGERS,LACTATED 1000ML 1,000 ML IV SCH; -KETOROLAC 30 MG/ML INJ FOR OR. INJ ONE; -LIDOCAINE 1% PF 2 ML VIAL. ID PRN; -LIDOCAINE 2% PF Vial for OR 5 ML VIAL. ONE; -MORPHINE SULFATE 2 MG/ML VIAL. IV PRN; -NEOSTIGMINE METHYLSULFATE 5 MG/5 ML SYRINGE. ONE; -ONDANSETRON PF 4 MG/2 ML VIAL. IM ONE; -ONDANSETRON PF 4 MG/2 ML VIAL. ONE; -PROPOFOL 20 ML IV ONE; -ROCURONIUM 50 MG/5 ML VIAL. ONE; -SEVOFLURANE 61 TO 120 MINUTES. IH ONE; -SURGICEL HEMOSTAT 4X8 EACH. ONE; -fentaNYL PF VIAL 100 MCG/2 ML VIAL ONE; -oxyCODONE/APAP 5/325 1 TAB TABLET PO ONE
[2018-08-01] MEDS ORDERED: IPRATRPIUM/ALBUTEROL 0.5/2.5MG 3 ML NEBU. NEB ONE (01:45)
[2018-08-01] MEDS ORDERED: ONDANSETRON ODT 4 MG TAB.RAPDIS. PO ONE (02:00)
[2018-08-01] MEDS ORDERED: HYDROcodone/APAP 5/325MG 1 TAB TABLET PO ONE (02:00)
[2018-08-01 02:11] LABS: BASO % 1 % (0-3); EOS # 0.1 x10^3/uL (0.0-0.7); EOS % 1 % (0-3); HEMATOCRIT 33.5 % (36.0-47.0); LYMPH # 0.9 x10^3/uL (1.0-4.8); LYMPH % 16 % (24-48); MEAN CORPUSCULAR HEMOGLOBIN 27 pg (25-35); MEAN CORPUSCULAR HGB CONC 33 g/dL (31-37); MEAN CORPUSCULAR VOLUME 83 fL (79-100); MONO # 0.6 x10^3/uL (0.0-1.1); MONO % 10 % (0-9); NEUT # 3.8 x10^3uL (1.8-7.7); NEUT % 72 % (31-73); PLATELET COUNT 177 x10^3/uL (140-400); RED BLOOD COUNT 4.05 x10^6/uL (3.50-5.40); RED CELL DISTRIBUTION WIDTH 15.5 % (11.5-14.5); WHITE BLOOD COUNT 5.4 x10^3/uL (4.0-11.0)
--- NOTE | 2018-08-01 02:15 | PHYS DOC ---
Past Medical History Past Medical History: Anxiety, Asthma, Other Additional Past Medical Histor: VSD, panic attacks Past Surgical History: , Other Additional Past Surgical Histo: open heart, LAP ANGUS Alcohol Use: Occasionally Drug Use: None Adult General Chief Complaint Chief Complaint: SHORTNESS OF BREATH HPI HPI Patient is a 32 year old female presents with cough and shortness of breath. She is one week status post a cholecystectomy. She doesn't history of asthma she has had increasing cough she feels that there is mucus in her lungs but she cannot get it out it is a dry cough the cough is leading to some abdominal discomfort however she is eating okay minimal any vomiting she just ran out of her oxycodone as well. She has chest tightness with coughing she did have a fever earlier in the week but none recently. Review of Systems Review of Systems Constitutional: ] Eyes: Denies change in visual acuity, redness, or eye pain [] HENT: Respiratory: Cardiovascular: No additional information not addressed in HPI [] GI: : Denies dysuria or hematuria [] Musculoskeletal: Denies back pain or joint pain [] Neurologic: Denies focal weakness or sensory changes [] Endocrine: Denies polyuria or polydipsia [] All other systems were reviewed and found to be within normal limits, except as documented in this note. Current Medications Current Medications Current Medications Medications (Trade) Dose Ordered Sig/Kareen Start Time Stop Time Status Last Admin Dose Admin Acetaminophen/ Hydrocodone Bitart (Lortab 5/325) 2 tab 1X ONCE 08/01/18 02:00 08/01/18 02:01 DC 08/01/18 02:09 2 TAB Albuterol/ Ipratropium (Duoneb) 3 ml 1X ONCE 08/01/18 01:45 08/01/18 01:46 DC 08/01/18 03:39 3 ML Info (CONTRAST GIVEN -- Rx MONITORING) 1 each PRN DAILY PRN 08/01/18 03:45 08/01/18 04:30 DC Iohexol (Omnipaque 300 Mg/ml) 100 ml 1X ONCE 08/01/18 03:00 08/01/18 03:35 DC 08/01/18 03:14 100 ML Ondansetron HCl (Zofran Odt) 4 mg 1X ONCE 08/01/18 02:00 08/01/18 02:01 DC 08/01/18 02:08 4 MG Allergies Allergies Allergies Coded Allergies Type Severity Reaction Last Updated Verified cefaclor Allergy Intermediate hives 07/20/18 Yes prochlorperazine edisylate Adverse Reaction Intermediate panic attack Yes prochlorperazine maleate Adverse Reaction Intermediate panic attack 07/20/18 Yes Physical Exam Physical Exam Constitutional: Well developed, well nourished, no acute distress, non-toxic appearance. [] HENT: Normocephalic, atraumatic, bilateral external ears normal, oropharynx moist, no oral exudates, nose normal. [] Eyes: PERRLA, EOMI, conjunctiva normal, no discharge. [] Neck: Normal range of motion, no tenderness, supple, no stridor. [] Cardiovascular:Heart rate regular rhythm, no murmur [] Lungs & Thorax: Bilateral breath sounds clear to auscultation []reactive coughing wheezing noted Abdomen: Bowel sounds normal, soft, mild periumbilical but no peritoneal signs tenderness, no masses, no pulsatile masses. [] Surgical incisions appear well healing with Steri-Strips in place Skin: Warm, dry, no erythema, no rash. [] Back: No tenderness, no CVA tenderness. [] Extremities: No tenderness, no cyanosis, no clubbing, ROM intact, no edema. [] Neurologic: Alert and oriented X 3, normal motor function, normal sensory function, no focal deficits noted. [] Psychologic: Affect normal, judgement normal, mood normal. [] Current Patient Data Vital Signs Vital Signs Date Time Temp Pulse Resp B/P (MAP) Pulse Ox O2 Delivery O2 Flow Rate FiO2 08/01/18 03:39 100 Nasal Cannula 1.0 08/01/18 03:19 92 151/66 (94) 08/01/18 02:09 20 08/01/18 01:25 99.2 99.2 Lab Values Laboratory Tests Test 08/01/18 01:50 White Blood Count 5.4 x10^3/uL (4.0-11.0) Red Blood Count 4.05 x10^6/uL (3.50-5.40) Hemoglobin 11.0 g/dL (12.0-15.5) L Hematocrit 33.5 % (36.0-47.0) L Mean Corpuscular Volume 83 fL (79-100) Mean Corpuscular Hemoglobin 27 pg (25-35) Mean Corpuscular Hemoglobin Concent 33 g/dL (31-37) Red Cell Distribution Width 15.5 % (11.5-14.5) H Platelet Count 177 x10^3/uL (140-400) Neutrophils (%) (Auto) 72 % (31-73) Lymphocytes (%) (Auto) 16 % (24-48) L Monocytes (%) (Auto) 10 % (0-9) H Eosinophils (%) (Auto) 1 % (0-3) Basophils (%) (Auto) 1 % (0-3) Neutrophils # (Auto) 3.8 x10^3uL (1.8-7.7) Lymphocytes # (Auto) 0.9 x10^3/uL (1.0-4.8) L Monocytes # (Auto) 0.6 x10^3/uL (0.0-1.1) Eosinophils # (Auto) 0.1 x10^3/uL (0.0-0.7) Basophils # (Auto) 0.0 x10^3/uL (0.0-0.2) Prothrombin Time 13.1 SEC (11.7-14.0) Prothrombin Time INR 1.0 (0.8-1.1) D-Dimer (Vijaya) 1.11 ug/mlFEU (0.00-0.50) H Maternal Serum HCG Beta Subunit < 1 mIU/mL (0-5) Sodium Level 139 mmol/L (136-145) Potassium Level 4.0 mmol/L (3.5-5.1) Chloride Level 105 mmol/L (98-107) Carbon Dioxide Level 26 mmol/L (21-32) Anion Gap 8 (6-14) Blood Urea Nitrogen 11 mg/dL (7-20) Creatinine 0.8 mg/dL (0.6-1.0) Estimated GFR (Cockcroft-Gault) 99.4 BUN/Creatinine Ratio 14 (6-20) Glucose Level 92 mg/dL (70-99) Calcium Level 9.0 mg/dL (8.5-10.1) Total Bilirubin 0.2 mg/dL (0.2-1.0) Aspartate Amino Transferase (AST) 12 U/L (15-37) L Alanine Aminotransferase (ALT) 23 U/L (14-59) Alkaline Phosphatase 55 U/L (46-116) Troponin I Quantitative < 0.017 ng/mL (0.000-0.055) LN-Cbd-I-Type Natriuretic Peptide 38 pg/mL (0-124) Total Protein 7.1 g/dL (6.4-8.2) Albumin 3.6 g/dL (3.4-5.0) Albumin/Globulin Ratio 1.0 (1.0-1.7) Lipase 140 U/L (73-393) Laboratory Tests 08/01/18 01:50 Laboratory Tests 08/01/18 01:50 EKG EKG []EKG shows a normal sinus rhythm V3 is misplaced however other than that no signs of ischemia ST segments look normal QTC is 428 interpreted by me time of encounter. Radiology/Procedures Radiology/Procedures [] Impressions: Chest x-ray interpreted by me shows no acute process ct neg for pe Course & Med Decision Making Course & Med Decision Making Pertinent Labs and Imaging studies reviewed. (See chart for details) []32-year-old female 1 week status post a cholecystectomy presenting with cough and shortness of breath she does have a history of asthma differential would include healthcare associated pneumonia pulmonary embolism asthma exacerbation. Patient will receive albuterol and lab workup to evaluate for the above. much better after er tx. rx; abx, beta agonist therapy cough syrup and prednisone. Dragon Disclaimer Dragon Disclaimer This electronic medical record was generated, in whole or in part, using a voice recognition dictation system. Departure Departure Impression: Primary Impression: Bronchitis Disposition: HOME, SELF-CARE Condition: IMPROVED Referrals: MARY LOU TORRES APRN (PCP) Scripts Ipratropium/Albuterol Sulfate (DUONEB 0.5-3(2.5) MG/3 ML) 3 Ml Ampul.neb 3 ML NEB QID PRN for SHORTNESS OF BREATH, #30 EACH Prov: JAH HUMPHRIES MD 08/01/18 Doxycycline Hyclate (DOXYCYCLINE HYCLATE) 100 Mg Capsule 1 CAP PO BID, #14 CAP Prov: JAH HUMPHRIES MD 08/01/18 Prednisone (PREDNISONE) 20 Mg Tablet 1 TAB PO DAILY, #5 TAB Prov: JAH HUMPHRIES MD 08/01/18 Guaifenesin/Codeine Phosphate (GUAIFENESIN AC COUGH SYRUP) 473 Ml Liquid 5 ML PO Q4HRS, #240 ML Prov: JAH HUMPHRIES MD 08/01/18 JAH HUMPHRIES MD Aug 01, 2018 02:15
[2018-08-01 02:25] LABS: CREATININE 0.8 mg/dL (0.6-1.0); GFR 99.4
[2018-08-01 02:30] LABS: PROTHROMBIN TIME PATIENT 13.1 SEC (11.7-14.0)
[2018-08-01 02:36] LABS: D-DIMER 1.11 ug/mlFEU (0.00-0.50)
[2018-08-01 02:40] LABS: ALBUMIN 3.6 g/dL (3.4-5.0); TOTAL BILIRUBIN 0.2 mg/dL (0.2-1.0); TOTAL PROTEIN 7.1 g/dL (6.4-8.2)
[2018-08-01] MEDS ORDERED: IOHEXOL 300 MG/ML 100ML VIAL. IV ONE (03:00)
[2018-08-01 03:19] VITALS: BP 151/66
[2018-08-01] MEDS ORDERED: CONTRAST GIVEN. MC PRN (03:45)
--- NOTE | 2018-08-01 03:56 | RAD ---
CT angiogram of the chest with contrast: Reason for examination: Chest pain with shortness of breath. Postop laparoscopic cholecystectomy. Evaluate for pulmonary embolus. Helical images were obtained through the chest with intravenous administration of 100 cc Omnipaque 300 using PE protocol. 3-D MIPS reconstruction was performed in sagittal and coronal planes. Exposure: One or more of the following individualized dose reduction techniques were utilized for this examination: 1. Automated exposure control 2. Adjustment of the mA and/or kV according to patient size 3. Use of iterative reconstruction technique. No abnormality seen at the thyroid gland. The trachea and mainstem bronchi show no intraluminal lesions. No abnormality seen at the esophagus. The thoracic aorta shows no aneurysmal dilatation or dissection. The heart size is normal with no pericardial effusion. No pulmonary embolus is seen. There is a calcified granuloma at the mid left lung field. No acute infiltrates, pleural effusions or pneumothorax are seen. No focal abnormalities are seen at the liver, spleen or adrenal glands. No acute bony abnormalities are seen. IMPRESSION: No evidence of pulmonary embolus. No gross infiltrates or pleural effusions. No acute abnormality seen in the chest. Electronically signed by: Dari Balbuena MD (08/01/2018 3:51 AM) [facility]
[2018-08-01] MEDS ORDERED: PRED20TA PO (04:12)
[2018-08-01] MEDS ORDERED: DOXY100C2 PO (04:12)
[2018-08-01] MEDS ORDERED: GUAI473L15 PO (04:12)
[2018-08-01] MEDS ORDERED: IPRA3AMP29 NEB (04:20)
--- NOTE | 2018-08-01 05:07 | RAD ---
Chest chest AP portable at 0138: Reason for examination: Chest pain and shortness of breath with cough. Comparison is made to previous study dated 12/29/2017. The heart size is normal. Mediastinum is unremarkable. Lung anderosn are clear. No acute bony abnormalities are seen. Impression: No acute cardiopulmonary disease. Electronically signed by: Dari Balbuena MD (08/01/2018 5:03 AM) [facility]
--- NOTE | 2018-08-01 06:15 | EKG ---
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
== END 2018-08-01 04:30 | disposition home or self-care (01) ==
LOC: ER 01:23
DX: J40 Bronchitis, not specified as acute or chronic (principal); R07.89 Other chest pain; Z88.8 Allergy status to other drugs, medicaments and biological substances
CPT/HCPCS: 36415; 71045; 71275; 80053; 83690; 83880; 84484; 84702; 85025; 85379; 85610; 93005; 94640; 99284; J7620; Q0162; Q9967

== ENCOUNTER 2018-11-07 11:43 | Inpatient (IN) | payer OTHER ==
[~2018-11-07] VITALS: Ht 157.5 cm; Wt 120.7 kg
[~2018-11-07 11:43] MED LIST changes: +GUAI473L15 PO; +IPRA3AMP29 NEB
[2018-11-07] MEDS ORDERED: ONDANSETRON PF 4 MG/2 ML VIAL. IV ONE (12:15)
[2018-11-07] MEDS ORDERED: IV NORMAL SALINE 1000ML BAG 1,000 ML IV ONE ×2 (12:15→14:45)
[2018-11-07] MEDS ORDERED: MECLIZINE HCL 12.5 MG TABLET. PO ONE (12:15)
--- NOTE | 2018-11-07 12:55 | RAD ---
EXAM: CHEST 1 VIEW History: Dizziness COMPARISON: 08/01/2018 TECHNIQUE: Single portable radiograph of the chest FINDINGS: The cardiac silhouette is unremarkable. The lungs are clear bilaterally. The costophrenic sulci are clear and well demarcated. IMPRESSION: No radiographic evidence of an acute cardiopulmonary process. Electronically signed by: Lamont Pérez MD (11/07/2018 12:52 PM) [id number]
[2018-11-07 12:57] LABS: CALCIUM 8.5 mg/dL (8.5-10.1); CREATININE 0.5 mg/dL (0.6-1.0); GFR 169.9; POTASSIUM 4.3 mmol/L (3.5-5.1)
[2018-11-07] MEDS ORDERED: IOHEXOL 300 MG/ML 100ML VIAL. IV ONE (13:00)
[2018-11-07] MEDS ORDERED: CONTRAST GIVEN. MC PRN (13:00)
[2018-11-07 13:03] LABS: ALBUMIN 3.5 g/dL (3.4-5.0); ALBUMIN/GLOBULIN RATIO 1.1 (1.0-1.7); MAGNESIUM 1.8 mg/dL (1.8-2.4); TOTAL BILIRUBIN 0.2 mg/dL (0.2-1.0); TOTAL PROTEIN 6.7 g/dL (6.4-8.2)
[2018-11-07 13:10] LABS: INFLUENZA A PATIENT NEGATIVE (NEGATIVE); INFLUENZA B PATIENT NEGATIVE (NEGATIVE)
[2018-11-07 13:12] LABS: BASO % 1 % (0-3); EOS # 0.1 x10^3/uL (0.0-0.7); EOS % 1 % (0-3); HEMATOCRIT 34.5 % (36.0-47.0); HEMOGLOBIN 10.8 g/dL (12.0-15.5); LYMPH # 1.3 x10^3/uL (1.0-4.8); LYMPH % 27 % (24-48); MEAN CORPUSCULAR HEMOGLOBIN 26 pg (25-35); MEAN CORPUSCULAR HGB CONC 31 g/dL (31-37); MEAN CORPUSCULAR VOLUME 83 fL (79-100); MONO # 0.4 x10^3/uL (0.0-1.1); MONO % 9 % (0-9); NEUT # 2.9 x10^3uL (1.8-7.7); NEUT % 62 % (31-73); PLATELET COUNT 221 x10^3/uL (140-400); RED BLOOD COUNT 4.17 x10^6/uL (3.50-5.40); RED CELL DISTRIBUTION WIDTH 14.8 % (11.5-14.5); WHITE BLOOD COUNT 4.7 x10^3/uL (4.0-11.0)
[2018-11-07 13:14] LABS: CREATINE KINASE 114 U/L (26-192)
[2018-11-07 13:14] LABS: BILIRUBIN,URINE NEGATIVE (NEG); CLARITY,URINE CLEAR; COLOR,URINE YELLOW; NITRITE,URINE NEGATIVE (NEG); PROTEIN,URINE NEGATIVE (NEG-TRACE); UROBILINOGEN,URINE 0.2 mg/dL (0.2 mg/dL)
[2018-11-07 13:21] LABS: AMPHETAMINE/METHAMPHETAMINE NEG (NEG); BARBITURATES NEG (NEG); BENZODIAZEPINES NEG (NEG); CANNABINOIDS NEG (NEG); COCAINE NEG (NEG); METHADONE NEG (NEG); OPIATES NEG (NEG); PHENCYCLIDINE NEG (NEG)
[2018-11-07 13:23] LABS: BACTERIA,URINE 0 /HPF (0-FEW); RBC,URINE 0 /HPF (0-2); SQUAMOUS EPITHELIAL CELL,UR MOD /LPF
--- NOTE | 2018-11-07 13:42 | RAD ---
CT study of the abdomen and pelvis with IV contrast Clinical indications: Abdominal pain and nausea and vomiting. COMPARISON: CT study of the abdomen and pelvis dated November 21, 2017. TECHNIQUE: After IV infusion of 75 cc of Omnipaque 300, helical CT scanning of the abdomen and pelvis was performed. No GI contrast was administered. This may decrease the sensitivity to detect GI tract pathology. Area PQRS compliance Statement One or more of the following individualized dose reduction techniques were utilized for this study: 1. Automated exposure control 2. Adjustment of the mA and/or kV according to patient size 3. Use of iterative reconstruction technique FINDINGS: The liver and spleen and pancreas are normal. The gallbladder is surgically absent. No extra hepatic biliary ductal dilatation is seen. No adrenal mass is evident. No renal mass or hydronephrosis or perinephric fluid collection is seen on either side. No focal aneurysmal dilatation of the abdominal aorta is seen. No enlarged abdominal or pelvic lymphadenopathy is evident. Urinary bladder is not distended. No uterine mass or fibroid is seen. No dominant ovarian cyst or mass is seen. No obstructive bowel pattern is evident. The appendix is normal. No free fluid or free air or mesenteric edema is seen. No lung base consolidation is evident. Developmental clefts of the inferior pubic rami are seen bilaterally. No lytic process is seen. No lung base consolidation is evident. IMPRESSION: No acute abnormality of the abdomen or pelvis. Electronically signed by: Sal Mays MD (11/07/2018 1:40 PM) [facility]
--- NOTE | 2018-11-07 14:16 | PHYS DOC ---
Past Medical History Past Medical History: Anxiety, Asthma, Other Additional Past Medical Histor: VSD, panic attacks Past Surgical History: Cholecystectomy, , Other Additional Past Surgical Histo: open heart, LAP ANGUS Alcohol Use: Occasionally Drug Use: None Adult General Chief Complaint Chief Complaint: ABDOMINAL PAIN HPI HPI Patient is a 33 year old female with history of asthma, anxiety, open heart surgery from VSD as a child, who presents to the ED today complaining of abdominal pain and dizziness. Patient states the dizziness began 2-3 days ago. Denies anything specifically exacerbating or relieving the dizziness. She is also complaining of nausea with no vomiting. She states the abdominal pain has been going on since March 2018 when she had her gallbladder removed but got worse in the last 2-3 days. She states the pain is all over her abdomen. Denies any diarrhea. Denies any fever. Review of Systems Review of Systems Constitutional: Denies fever or chills [] Eyes: Denies change in visual acuity, redness, or eye pain [] HENT: Denies nasal congestion or sore throat [] Respiratory: Denies cough or shortness of breath [] Cardiovascular: No additional information not addressed in HPI [] GI: Reports abdominal pain, nausea, denies vomiting, bloody stools or diarrhea [ ] : Denies dysuria or hematuria [] Musculoskeletal: Denies back pain or joint pain [] Integument: Denies rash or skin lesions [] Neurologic: Reports dizziness. Denies headache, focal weakness or sensory changes [] All other systems were reviewed and found to be within normal limits, except as documented in this note. Current Medications Current Medications Current Medications Medications (Trade) Dose Ordered Sig/Kareen Start Time Stop Time Status Last Admin Dose Admin Acetaminophen (Tylenol) 650 mg PRN Q6HRS PRN 11/07/18 14:30 Enoxaparin Sodium (Lovenox 40mg Syringe) 40 mg Q24H 11/07/18 14:30 UNV Info (CONTRAST GIVEN -- Rx MONITORING) 1 each PRN DAILY PRN 11/07/18 13:00 11/09/18 12:59 Info (Non-Icu Electrolyte Protocol) 1 ea PRN DAILY PRN 11/07/18 14:30 Iohexol (Omnipaque 300 Mg/ml) 75 ml 1X ONCE 11/07/18 13:00 11/07/18 13:01 DC 11/07/18 13:25 75 ML Ketorolac Tromethamine (Toradol 30mg Vial) 30 mg PRN Q6HRS PRN 11/07/18 14:30 11/12/18 14:29 Lactulose (Lactulose) 20 gm PRN Q12HR PRN 11/07/18 14:30 Magnesium Hydroxide (Milk Of Magnesia) 2,400 mg PRN Q12HR PRN 11/07/18 14:30 Meclizine HCl (Antivert) 25 mg 1X ONCE 11/07/18 12:15 11/07/18 12:16 DC 11/07/18 12:37 25 MG Ondansetron HCl (Zofran) 4 mg PRN Q6HRS PRN 11/07/18 14:30 Pantoprazole Sodium (PROTONIX VIAL for IV PUSH) 40 mg DAILY 11/07/18 15:00 Ringer's Solution 1,000 ml @ 100 mls/hr Q10H 11/07/18 15:00 11/08/18 00:59 Sodium Chloride 1,000 ml @ 1,000 mls/hr 1X ONCE 11/07/18 12:15 11/07/18 13:14 DC 11/07/18 12:34 1,000 MLS/HR Allergies Allergies Allergies Coded Allergies Type Severity Reaction Last Updated Verified cefaclor Allergy Intermediate hives 07/20/18 Yes prochlorperazine edisylate Adverse Reaction Intermediate panic attack Yes prochlorperazine maleate Adverse Reaction Intermediate panic attack 07/20/18 Yes Physical Exam Physical Exam Constitutional: Well developed, well nourished, no acute distress, non-toxic appearance. [] HENT: Normocephalic, atraumatic, bilateral external ears normal, oropharynx moist, no oral exudates, nose normal. [] Eyes: PERRLA, EOMI, conjunctiva normal, no discharge. [] Neck: Normal range of motion, no tenderness, supple, no stridor. [] Cardiovascular:Heart rate regular rhythm, no murmur [] Lungs & Thorax: Bilateral breath sounds clear to auscultation [] Abdomen: Diffuse tenderness throughout the abdomen. Bowel sounds normal, soft, no point tenderness to the abdomen tenderness, no masses, no pulsatile masses. [ ] Skin: Warm, dry, no erythema, no rash. [] Back: No tenderness, no CVA tenderness. [] Extremities: No tenderness, no cyanosis, no clubbing, ROM intact, no edema. [] Neurologic: Alert and oriented X 3, normal motor function, normal sensory function, no focal deficits noted. Cranial nerves II through XII intact Psychologic: Affect normal, judgement normal, mood normal. [] Current Patient Data Vital Signs Vital Signs Date Time Temp Pulse Resp B/P (MAP) Pulse Ox O2 Delivery O2 Flow Rate FiO2 11/07/18 11:55 98.3 58 18 119/63 (81) 100 Room Air 98.3 Lab Values Laboratory Tests Test 11/07/18 12:32 11/07/18 12:44 11/07/18 13:00 11/07/18 13:06 White Blood Count 4.7 x10^3/uL (4.0-11.0) Red Blood Count 4.17 x10^6/uL (3.50-5.40) Hemoglobin 10.8 g/dL (12.0-15.5) L Hematocrit 34.5 % (36.0-47.0) L Mean Corpuscular Volume 83 fL (79-100) Mean Corpuscular Hemoglobin 26 pg (25-35) Mean Corpuscular Hemoglobin Concent 31 g/dL (31-37) Red Cell Distribution Width 14.8 % (11.5-14.5) H Platelet Count 221 x10^3/uL (140-400) Neutrophils (%) (Auto) 62 % (31-73) Lymphocytes (%) (Auto) 27 % (24-48) Monocytes (%) (Auto) 9 % (0-9) Eosinophils (%) (Auto) 1 % (0-3) Basophils (%) (Auto) 1 % (0-3) Neutrophils # (Auto) 2.9 x10^3uL (1.8-7.7) Lymphocytes # (Auto) 1.3 x10^3/uL (1.0-4.8) Monocytes # (Auto) 0.4 x10^3/uL (0.0-1.1) Eosinophils # (Auto) 0.1 x10^3/uL (0.0-0.7) Basophils # (Auto) 0.0 x10^3/uL (0.0-0.2) Sodium Level 140 mmol/L (136-145) Potassium Level 4.3 mmol/L (3.5-5.1) Chloride Level 105 mmol/L (98-107) Carbon Dioxide Level 26 mmol/L (21-32) Anion Gap 9 (6-14) Blood Urea Nitrogen 11 mg/dL (7-20) Creatinine 0.5 mg/dL (0.6-1.0) L Estimated GFR (Cockcroft-Gault) 169.9 BUN/Creatinine Ratio 22 (6-20) H Glucose Level 91 mg/dL (70-99) Calcium Level 8.5 mg/dL (8.5-10.1) Magnesium Level 1.8 mg/dL (1.8-2.4) Total Bilirubin 0.2 mg/dL (0.2-1.0) Aspartate Amino Transferase (AST) 12 U/L (15-37) L Alanine Aminotransferase (ALT) 14 U/L (14-59) Alkaline Phosphatase 55 U/L (46-116) Creatine Kinase 114 U/L (26-192) Creatine Kinase MB (Mass) < 0.5 ng/mL (0.0-3.6) Creatine Kinase MB Relative Index % (0-4) Troponin I Quantitative < 0.017 ng/mL (0.000-0.055) AV-Urt-Z-Type Natriuretic Peptide 77 pg/mL (0-124) Total Protein 6.7 g/dL (6.4-8.2) Albumin 3.5 g/dL (3.4-5.0) Albumin/Globulin Ratio 1.1 (1.0-1.7) Lipase 468 U/L (73-393) H Thyroid Stimulating Hormone (TSH) 0.464 uIU/mL (0.358-3.74) Influenza Type A Antigen Negative (NEGATIVE) Influenza Type B Antigen Negative (NEGATIVE) Urine Collection Type Unknown Urine Color Yellow Urine Clarity Clear Urine pH 6.0 Urine Specific [place] 1.025 Urine Protein Negative mg/dL (NEG-TRACE) Urine Glucose (UA) Negative mg/dL (NEG) Urine Ketones (Stick) Negative mg/dL (NEG) Urine Blood Negative (NEG) Urine Nitrite Negative (NEG) Urine Bilirubin Negative (NEG) Urine Urobilinogen Dipstick 0.2 mg/dL (0.2 mg/dL) Urine Leukocyte Esterase Trace (NEG) Urine RBC 0 /HPF (0-2) Urine WBC 1-4 /HPF (0-4) Urine Squamous Epithelial Cells Mod /LPF Urine Bacteria 0 /HPF (0-FEW) Urine Mucus Marked /LPF Urine Opiates Screen Neg (NEG) Urine Methadone Screen Neg (NEG) Urine Barbiturates Neg (NEG) Urine Phencyclidine Screen Neg (NEG) Urine Amphetamine/Methamphetamine Neg (NEG) Urine Benzodiazepines Screen Neg (NEG) Urine Cocaine Screen Neg (NEG) Urine Cannabinoids Screen Neg (NEG) Urine Ethyl Alcohol Neg (NEG) POC Urine HCG, Qualitative Hcg negative (Negative) Laboratory Tests 11/07/18 12:32 Laboratory Tests 11/07/18 12:32 EKG EKG 12:[address] Espino sinus rhythm HR 55 no STEMI[] Radiology/Procedures Radiology/Procedures []PROCEDURE: CT ABD PELV W/ IV CONTRST ONLY CT study of the abdomen and pelvis with IV contrast Clinical indications: Abdominal pain and nausea and vomiting. COMPARISON: CT study of the abdomen and pelvis dated November 21, 2017. TECHNIQUE: After IV infusion of 75 cc of Omnipaque 300, helical CT scanning of the abdomen and pelvis was performed. No GI contrast was administered. This may decrease the sensitivity to detect GI tract pathology. Area PQRS compliance Statement One or more of the following individualized dose reduction techniques were utilized for this study: 1. Automated exposure control 2. Adjustment of the mA and/or kV according to patient size 3. Use of iterative reconstruction technique FINDINGS: The liver and spleen and pancreas are normal. The gallbladder is surgically absent. No extra hepatic biliary ductal dilatation is seen. No adrenal mass is evident. No renal mass or hydronephrosis or perinephric fluid collection is seen on either side. No focal aneurysmal dilatation of the abdominal aorta is seen. No enlarged abdominal or pelvic lymphadenopathy is evident. Urinary bladder is not distended. No uterine mass or fibroid is seen. No dominant ovarian cyst or mass is seen. No obstructive bowel pattern is evident. The appendix is normal. No free fluid or free air or mesenteric edema is seen. No lung base consolidation is evident. Developmental clefts of the inferior pubic rami are seen bilaterally. No lytic process is seen. No lung base consolidation is evident. IMPRESSION: No acute abnormality of the abdomen or pelvis. Electronically signed by: Sal Mays MD (11/07/2018 1:40 PM) [facility] DICTATED and SIGNED BY: SAL MAYS MD DATE: 11/07/18 6460 Course & Med Decision Making Course & Med Decision Making Pertinent Labs and Imaging studies reviewed. (See chart for details) This is a 33-year-old female patient presenting to the ED today complaining of dizziness for 2 days as well as abdominal pain that has been going on since March 2018 but got worse in the last couple days. CBC with a normal WBC, hemoglobin 10.8, hematocrit 34.5, this is around patient' s baseline. Urine analysis is negative for infection, CMP would not acute findings, lipase 468, patient denies any history of heavy drinking recently. CT of the abdomen and pelvic is negative for any acute findings. Consulted with who accepted patient for admission. GI consult was placed. IV fluids ordered. Dragon Disclaimer Dragon Disclaimer This electronic medical record was generated, in whole or in part, using a voice recognition dictation system. Departure Departure Impression: Primary Impression: Nausea Additional Impressions: Abdominal pain Acute pancreatitis Dizziness Disposition: ADMITTED INPATIENT Condition: STABLE Referrals: MARY LOU TORRES APRN (PCP) Problem Qualifiers Additional Impressions: Abdominal pain Abdominal location: generalized Qualified Codes: R10.84 - Generalized abdominal pain Acute pancreatitis Pancreatitis type: unspecified pancreatitis type Acute pancreatitis complication: unspecified Qualified Codes: K85.90 - Acute pancreatitis without necrosis or infection, unspecified JACINTA PEREZ APRN Nov 07, 2018 14:16
--- NOTE | 2018-11-07 14:21 | PDOC1 ---
History and Physical Date of Admission Date of Admission 11/07/2018 Identification/Chief Complaint Chief Complaint ABDOMINAL PAIN Source Source: Chart review, Patient History of Present Illness History of Present Illness patient is a 33 year old female with past medical history of cholecystectomy on Jul 25 2018. Ever since her procedure the patient has had on and off pain over the right upper quadrant that he describes a s a sharp pain associated with nausea, epigastric pain with retrosternal discomfort, no cough but she describes a bad taste in her mouth. Patient with no fever or chills, no recent sick contacts, no diarrhea reported but after having a fatty meal she does have some loose stools. Her pain is radiated in a band like fashion to the back, imaging studies were reported negative, her lipase is over 400 and she refers her discomfort feels as when she had her "gallbladder attacks" She will be admitted for pain control , bowel rest and reassessment in the am. Dietary counseling has been done. no jaundice has been reported, no history of herbal supplements, no excess tylenol, no alcohol abuse has been reported. She decided to consult due to the progressive nature of her symptoms. Past Medical History Cardiovascular: No pertinent hx GI: No pertinent hx Heme/Onc: No pertinent hx Hepatobiliary: No pertinent hx Psych: No pertinent hx Rheumatologic: No pertinent hx Infectious disease: No pertinent hx Renal/: No pertinent hx Endocrine: No pertinent hx Past Surgical History Past Surgical History: Other Family History Family History: Coronary Artery Disease Social History ALCOHOL: occassional Drugs: None Current Medications Current Medications Current Medications Medications (Trade) Dose Ordered Sig/Kareen Start Time Stop Time Status Last Admin Dose Admin Info (CONTRAST GIVEN -- Rx MONITORING) 1 each PRN DAILY PRN 11/07/18 13:00 11/09/18 12:59 Iohexol (Omnipaque 300 Mg/ml) 75 ml 1X ONCE 11/07/18 13:00 11/07/18 13:01 DC 11/07/18 13:25 75 ML Meclizine HCl (Antivert) 25 mg 1X ONCE 11/07/18 12:15 11/07/18 12:16 DC 11/07/18 12:37 25 MG Ondansetron HCl (Zofran) 4 mg 1X ONCE 11/07/18 12:15 11/07/18 12:16 DC 11/07/18 12:36 4 MG Sodium Chloride 1,000 ml @ 1,000 mls/hr 1X ONCE 11/07/18 12:15 11/07/18 13:14 DC 11/07/18 12:34 1,000 MLS/HR Allergies Allergies Allergies Coded Allergies Type Severity Reaction Last Updated Verified cefaclor Allergy Intermediate hives 07/20/18 Yes prochlorperazine edisylate Adverse Reaction Intermediate panic attack Yes prochlorperazine maleate Adverse Reaction Intermediate panic attack 07/20/18 Yes ROS Review of System CONSTITUTIONAL: No fever or chills EYES: No recent changes SKIN: No rash or itching CARDIOVASCULAR: No chest pain, syncope, palpitations, or edema RESPIRATORY: No SOB or cough GASTROINTESTINAL: No nausea, vomiting or abdominal pain NEUROLOGICAL: No headaches or weakness ENDOCRINE: No cold or heat intolerance GENITOURINARY: No urgency or frequency of urination MUSCULOSKELETAL: No back pain or joint pain LYMPHATICS: No enlarged lymph nodes PSYCHIATRIC: No anxiety or depression Physical Exam Physical Exam GEN.: No apparent distress. Alert and oriented. HEENT: Head is normocephalic, atraumatic NECK: Supple. LUNGS: Clear to auscultation. HEART: RRR, S1, S2 present. Peripheral pulses intact ABDOMEN: Soft, right upper quadrant tenderness, no rebound or guarding elicited . Positive bowel sounds. EXTREMITIES: Without any cyanosis. NEUROLOGIC: Normal speech, normal tone PSYCHIATRIC: Normal affect, normal mood. SKIN: No ulcerations Vitals Vitals Vital Signs Date Time Temp Pulse Resp B/P (MAP) Pulse Ox O2 Delivery O2 Flow Rate FiO2 11/07/18 11:55 98.3 58 18 119/63 (81) 100 Room Air 98.3 Labs Labs Laboratory Tests Test 11/07/18 12:32 11/07/18 12:44 11/07/18 13:00 11/07/18 13:06 White Blood Count 4.7 x10^3/uL (4.0-11.0) Red Blood Count 4.17 x10^6/uL (3.50-5.40) Hemoglobin 10.8 g/dL (12.0-15.5) Hematocrit 34.5 % (36.0-47.0) Mean Corpuscular Volume 83 fL (79-100) Mean Corpuscular Hemoglobin 26 pg (25-35) Mean Corpuscular Hemoglobin Concent 31 g/dL (31-37) Red Cell Distribution Width 14.8 % (11.5-14.5) Platelet Count 221 x10^3/uL (140-400) Neutrophils (%) (Auto) 62 % (31-73) Lymphocytes (%) (Auto) 27 % (24-48) Monocytes (%) (Auto) 9 % (0-9) Eosinophils (%) (Auto) 1 % (0-3) Basophils (%) (Auto) 1 % (0-3) Neutrophils # (Auto) 2.9 x10^3uL (1.8-7.7) Lymphocytes # (Auto) 1.3 x10^3/uL (1.0-4.8) Monocytes # (Auto) 0.4 x10^3/uL (0.0-1.1) Eosinophils # (Auto) 0.1 x10^3/uL (0.0-0.7) Basophils # (Auto) 0.0 x10^3/uL (0.0-0.2) Sodium Level 140 mmol/L (136-145) Potassium Level 4.3 mmol/L (3.5-5.1) Chloride Level 105 mmol/L (98-107) Carbon Dioxide Level 26 mmol/L (21-32) Anion Gap 9 (6-14) Blood Urea Nitrogen 11 mg/dL (7-20) Creatinine 0.5 mg/dL (0.6-1.0) Estimated GFR (Cockcroft-Gault) 169.9 BUN/Creatinine Ratio 22 (6-20) Glucose Level 91 mg/dL (70-99) Calcium Level 8.5 mg/dL (8.5-10.1) Magnesium Level 1.8 mg/dL (1.8-2.4) Total Bilirubin 0.2 mg/dL (0.2-1.0) Aspartate Amino Transf (AST/SGOT) 12 U/L (15-37) Alanine Aminotransferase (ALT/SGPT) 14 U/L (14-59) Alkaline Phosphatase 55 U/L (46-116) Creatine Kinase 114 U/L (26-192) Creatine Kinase MB (Mass) < 0.5 ng/mL (0.0-3.6) Creatine Kinase MB Relative Index % (0-4) Troponin I Quantitative < 0.017 ng/mL (0.000-0.055) JY-Fag-M-Type Natriuretic Peptide 77 pg/mL (0-124) Total Protein 6.7 g/dL (6.4-8.2) Albumin 3.5 g/dL (3.4-5.0) Albumin/Globulin Ratio 1.1 (1.0-1.7) Lipase 468 U/L (73-393) Thyroid Stimulating Hormone (TSH) 0.464 uIU/mL (0.358-3.74) Influenza Type A Antigen Negative (NEGATIVE) Influenza Type B Antigen Negative (NEGATIVE) Urine Collection Type Unknown Urine Color Yellow Urine Clarity Clear Urine pH 6.0 Urine Specific [place] 1.025 Urine Protein Negative mg/dL (NEG-TRACE) Urine Glucose (UA) Negative mg/dL (NEG) Urine Ketones (Stick) Negative mg/dL (NEG) Urine Blood Negative (NEG) Urine Nitrite Negative (NEG) Urine Bilirubin Negative (NEG) Urine Urobilinogen Dipstick 0.2 mg/dL (0.2 mg/dL) Urine Leukocyte Esterase Trace (NEG) Urine RBC 0 /HPF (0-2) Urine WBC 1-4 /HPF (0-4) Urine Squamous Epithelial Cells Mod /LPF Urine Bacteria 0 /HPF (0-FEW) Urine Mucus Marked /LPF Urine Opiates Screen Neg (NEG) Urine Methadone Screen Neg (NEG) Urine Barbiturates Neg (NEG) Urine Phencyclidine Screen Neg (NEG) Urine Amphetamine/Methamphetamine Neg (NEG) Urine Benzodiazepines Screen Neg (NEG) Urine Cocaine Screen Neg (NEG) Urine Cannabinoids Screen Neg (NEG) Urine Ethyl Alcohol Neg (NEG) Bedside Urine HCG, Qualitative Hcg negative (Negative) Laboratory Tests Test 11/07/18 12:32 11/07/18 12:44 11/07/18 13:00 11/07/18 13:06 White Blood Count 4.7 x10^3/uL (4.0-11.0) Red Blood Count 4.17 x10^6/uL (3.50-5.40) Hemoglobin 10.8 g/dL (12.0-15.5) Hematocrit 34.5 % (36.0-47.0) Mean Corpuscular Volume 83 fL (79-100) Mean Corpuscular Hemoglobin 26 pg (25-35) Mean Corpuscular Hemoglobin Concent 31 g/dL (31-37) Red Cell Distribution Width 14.8 % (11.5-14.5) Platelet Count 221 x10^3/uL (140-400) Neutrophils (%) (Auto) 62 % (31-73) Lymphocytes (%) (Auto) 27 % (24-48) Monocytes (%) (Auto) 9 % (0-9) Eosinophils (%) (Auto) 1 % (0-3) Basophils (%) (Auto) 1 % (0-3) Neutrophils # (Auto) 2.9 x10^3uL (1.8-7.7) Lymphocytes # (Auto) 1.3 x10^3/uL (1.0-4.8) Monocytes # (Auto) 0.4 x10^3/uL (0.0-1.1) Eosinophils # (Auto) 0.1 x10^3/uL (0.0-0.7) Basophils # (Auto) 0.0 x10^3/uL (0.0-0.2) Sodium Level 140 mmol/L (136-145) Potassium Level 4.3 mmol/L (3.5-5.1) Chloride Level 105 mmol/L (98-107) Carbon Dioxide Level 26 mmol/L (21-32) Anion Gap 9 (6-14) Blood Urea Nitrogen 11 mg/dL (7-20) Creatinine 0.5 mg/dL (0.6-1.0) Estimated GFR (Cockcroft-Gault) 169.9 BUN/Creatinine Ratio 22 (6-20) Glucose Level 91 mg/dL (70-99) Calcium Level 8.5 mg/dL (8.5-10.1) Magnesium Level 1.8 mg/dL (1.8-2.4) Total Bilirubin 0.2 mg/dL (0.2-1.0) Aspartate Amino Transf (AST/SGOT) 12 U/L (15-37) Alanine Aminotransferase (ALT/SGPT) 14 U/L (14-59) Alkaline Phosphatase 55 U/L (46-116) Creatine Kinase 114 U/L (26-192) Creatine Kinase MB (Mass) < 0.5 ng/mL (0.0-3.6) Creatine Kinase MB Relative Index % (0-4) Troponin I Quantitative < 0.017 ng/mL (0.000-0.055) ZT-Gin-J-Type Natriuretic Peptide 77 pg/mL (0-124) Total Protein 6.7 g/dL (6.4-8.2) Albumin 3.5 g/dL (3.4-5.0) Albumin/Globulin Ratio 1.1 (1.0-1.7) Lipase 468 U/L (73-393) Thyroid Stimulating Hormone (TSH) 0.464 uIU/mL (0.358-3.74) Influenza Type A Antigen Negative (NEGATIVE) Influenza Type B Antigen Negative (NEGATIVE) Urine Collection Type Unknown Urine Color Yellow Urine Clarity Clear Urine pH 6.0 Urine Specific [place] 1.025 Urine Protein Negative mg/dL (NEG-TRACE) Urine Glucose (UA) Negative mg/dL (NEG) Urine Ketones (Stick) Negative mg/dL (NEG) Urine Blood Negative (NEG) Urine Nitrite Negative (NEG) Urine Bilirubin Negative (NEG) Urine Urobilinogen Dipstick 0.2 mg/dL (0.2 mg/dL) Urine Leukocyte Esterase Trace (NEG) Urine RBC 0 /HPF (0-2) Urine WBC 1-4 /HPF (0-4) Urine Squamous Epithelial Cells Mod /LPF Urine Bacteria 0 /HPF (0-FEW) Urine Mucus Marked /LPF Urine Opiates Screen Neg (NEG) Urine Methadone Screen Neg (NEG) Urine Barbiturates Neg (NEG) Urine Phencyclidine Screen Neg (NEG) Urine Amphetamine/Methamphetamine Neg (NEG) Urine Benzodiazepines Screen Neg (NEG) Urine Cocaine Screen Neg (NEG) Urine Cannabinoids Screen Neg (NEG) Urine Ethyl Alcohol Neg (NEG) Bedside Urine HCG, Qualitative Hcg negative (Negative) VTE Prophylaxis Ordered VTE Prophylaxis Devices: No VTE Pharmacological Prophylaxi: Yes Assessment/Plan Assessment/Plan abdominal pain secondary to pancreatitis? elevated lipase morbid obesity with a bmi of 48 dietary transgression GERD/ PUD? Plan: npo iv fluids will start protonix iv pain management repeat lipase in the am reassess in the am further recommendations based on clinical course. SAMIA UMAÑA MD Nov 07, 2018 14:21
[2018-11-07] MEDS ORDERED: KETOROLAC 30 MG/ML VIAL. IV PRN (14:30)
[2018-11-07] MEDS ORDERED: MAGNESIUM HYDROXIDE 2,400 MG/30 ML ORAL.SUSP. PO PRN (14:30)
[2018-11-07] MEDS ORDERED: LACTULOSE 20 GM/30 ML SOLUTION. PO PRN (14:30)
[2018-11-07] MEDS ORDERED: ELECTROLYTE (NON-ICU) PROTOCOL MC PRN (14:30)
[2018-11-07] MEDS ORDERED: ONDANSETRON PF 4 MG/2 ML VIAL. IV PRN (14:45)
[2018-11-07] MEDS ORDERED: IV RINGERS,LACTATED 1000ML 1,000 ML IV SCH (15:00)
--- NOTE | 2018-11-07 15:24 | EKG ---
[facility] [address] [place] [address] Test Date: 2018-11-07 Test Time: 12:20:30 Pat Name: PETEY ALBA Department: Room: 410 Gender: F Clinical Implementation Specialist: : [id number] Requested By: JACINTA PEREZ Order Number: [id number] Reading MD: Joel Burch MD Measurements Intervals [place] Rate: 55 P: -90 NE: 132 QRS: 0 QRSD: 90 T: -7 QT: 444 QTc: 426 Interpretive Statements ECTOPIC ATRIAL RHYTHM (ABNORMAL P WAVE AXIS) NON-SPECIFIC ST/T CHANGES Electronically Signed On 11-19-2018 9:57:12 CDT by Joel Burch MD
[2018-11-07 15:30] VITALS: BP 117/55
--- NOTE | 2018-11-07 15:43 | PDOC2 ---
GI CONSULT Reason For Consult: lipase 468 acute pancreatitis HPI: HPI: 33 y/o female seen in the ER. Long h/o right-sided abd pain - comes and goes even after cholecystectomy last year, feels like "gallbladder attack." Radiates around right side to right flank. No precipitating factors. Can keep her awake during the night. Worse x 3 days and associated w/ vomiting (clear/ bile) and dyspepsia. Also has chronic loose stools (mostly post-prandial) since cholecystectomy - might be worse the last couple days. Alternates Tylenol and ibuprofen for pain, has been taking Benadryl to help her sleep, and has been taking Pepto for diarrhea. Tried Tums once. Denies reflux/heartburn, dysphagia, hematemesis, hematochezia, melena, and constipation. Might have lost weight due to not eating much recently. No previous EGD or colonoscopy - says Dr. Null recommended an EGD at one point and she would like to pursue this. Hepatic steatosis on past imaging. No pancreas history. No recent atbx use. Hgb 10.8 (around baseline), lipase 468. CT unremarkable w/ normal pancreas. PMH: PMH: asthma, anxiety, hepatic steatosis VSD repair, , cholecystectomy (biliary dyskinesia/chronic cholecystitis ) FH: Family History: Cancer (father - liver?) Social History: Smoke: No ALCOHOL: occassional (2 drinks weekly) Drugs: None ROS: GEN: Denies fevers, chills, sweats HEENT: Denies blurred vision, sore throat CV: Denies chest pain RESP: Denies shortness of air, cough GI: Per HPI : Denies hematuria, dysuria ENDO: ?weight loss NEURO: Denies confusion, dizziness MSK: Denies weakness, joint pain/swelling SKIN: Denies jaundice, pruritus Vitals: Vitals: Vital Signs Date Time Temp Pulse Resp B/P (MAP) Pulse Ox O2 Delivery O2 Flow Rate FiO2 11/07/18 14:31 64 20 141/75 (97) 97 Room Air 11/07/18 11:55 98.3 98.3 Labs: Labs: Laboratory Tests Test 11/07/18 12:32 11/07/18 12:44 11/07/18 13:00 11/07/18 13:06 White Blood Count 4.7 x10^3/uL (4.0-11.0) Red Blood Count 4.17 x10^6/uL (3.50-5.40) Hemoglobin 10.8 g/dL (12.0-15.5) Hematocrit 34.5 % (36.0-47.0) Mean Corpuscular Volume 83 fL (79-100) Mean Corpuscular Hemoglobin 26 pg (25-35) Mean Corpuscular Hemoglobin Concent 31 g/dL (31-37) Red Cell Distribution Width 14.8 % (11.5-14.5) Platelet Count 221 x10^3/uL (140-400) Neutrophils (%) (Auto) 62 % (31-73) Lymphocytes (%) (Auto) 27 % (24-48) Monocytes (%) (Auto) 9 % (0-9) Eosinophils (%) (Auto) 1 % (0-3) Basophils (%) (Auto) 1 % (0-3) Neutrophils # (Auto) 2.9 x10^3uL (1.8-7.7) Lymphocytes # (Auto) 1.3 x10^3/uL (1.0-4.8) Monocytes # (Auto) 0.4 x10^3/uL (0.0-1.1) Eosinophils # (Auto) 0.1 x10^3/uL (0.0-0.7) Basophils # (Auto) 0.0 x10^3/uL (0.0-0.2) Sodium Level 140 mmol/L (136-145) Potassium Level 4.3 mmol/L (3.5-5.1) Chloride Level 105 mmol/L (98-107) Carbon Dioxide Level 26 mmol/L (21-32) Anion Gap 9 (6-14) Blood Urea Nitrogen 11 mg/dL (7-20) Creatinine 0.5 mg/dL (0.6-1.0) Estimated GFR (Cockcroft-Gault) 169.9 BUN/Creatinine Ratio 22 (6-20) Glucose Level 91 mg/dL (70-99) Calcium Level 8.5 mg/dL (8.5-10.1) Magnesium Level 1.8 mg/dL (1.8-2.4) Total Bilirubin 0.2 mg/dL (0.2-1.0) Aspartate Amino Transf (AST/SGOT) 12 U/L (15-37) Alanine Aminotransferase (ALT/SGPT) 14 U/L (14-59) Alkaline Phosphatase 55 U/L (46-116) Creatine Kinase 114 U/L (26-192) Creatine Kinase MB (Mass) < 0.5 ng/mL (0.0-3.6) Creatine Kinase MB Relative Index % (0-4) Troponin I Quantitative < 0.017 ng/mL (0.000-0.055) UM-Oiz-C-Type Natriuretic Peptide 77 pg/mL (0-124) Total Protein 6.7 g/dL (6.4-8.2) Albumin 3.5 g/dL (3.4-5.0) Albumin/Globulin Ratio 1.1 (1.0-1.7) Lipase 468 U/L (73-393) Thyroid Stimulating Hormone (TSH) 0.464 uIU/mL (0.358-3.74) Influenza Type A Antigen Negative (NEGATIVE) Influenza Type B Antigen Negative (NEGATIVE) Urine Collection Type Unknown Urine Color Yellow Urine Clarity Clear Urine pH 6.0 Urine Specific [place] 1.025 Urine Protein Negative mg/dL (NEG-TRACE) Urine Glucose (UA) Negative mg/dL (NEG) Urine Ketones (Stick) Negative mg/dL (NEG) Urine Blood Negative (NEG) Urine Nitrite Negative (NEG) Urine Bilirubin Negative (NEG) Urine Urobilinogen Dipstick 0.2 mg/dL (0.2 mg/dL) Urine Leukocyte Esterase Trace (NEG) Urine RBC 0 /HPF (0-2) Urine WBC 1-4 /HPF (0-4) Urine Squamous Epithelial Cells Mod /LPF Urine Bacteria 0 /HPF (0-FEW) Urine Mucus Marked /LPF Urine Opiates Screen Neg (NEG) Urine Methadone Screen Neg (NEG) Urine Barbiturates Neg (NEG) Urine Phencyclidine Screen Neg (NEG) Urine Amphetamine/Methamphetamine Neg (NEG) Urine Benzodiazepines Screen Neg (NEG) Urine Cocaine Screen Neg (NEG) Urine Cannabinoids Screen Neg (NEG) Urine Ethyl Alcohol Neg (NEG) Bedside Urine HCG, Qualitative Hcg negative (Negative) Allergies: Coded Allergies: cefaclor (Verified Allergy, Intermediate, hives, 07/20/18) Has never taken pcn's before prochlorperazine edisylate (Verified Adverse Reaction, Intermediate, panic attack, 07/20/18) prochlorperazine maleate (Verified Adverse Reaction, Intermediate, panic attack, 07/20/18) Medications: Current Medications Medications (Trade) Dose Ordered Sig/Kareen Route PRN Reason Start Time Stop Time Status Last Admin Dose Admin Ondansetron HCl (Zofran) 4 mg 1X ONCE IV 11/07/18 12:15 11/07/18 12:16 DC 11/07/18 12:36 Meclizine HCl (Antivert) 25 mg 1X ONCE PO 11/07/18 12:15 11/07/18 12:16 DC 11/07/18 12:37 Sodium Chloride 1,000 ml @ 1,000 mls/hr 1X ONCE IV 11/07/18 12:15 11/07/18 13:14 DC 11/07/18 12:34 Iohexol (Omnipaque 300 Mg/ml) 75 ml 1X ONCE IV 11/07/18 13:00 11/07/18 13:01 DC 11/07/18 13:25 Ketorolac Tromethamine (Toradol 30mg Vial) 30 mg PRN Q6HRS PRN IV PAIN 11/07/18 14:30 11/12/18 14:29 11/07/18 14:32 Imaging: Imaging: CXR 11/07/18 IMPRESSION: No radiographic evidence of an acute cardiopulmonary process. CT A/P w/ IV contrast IMPRESSION: No acute abnormality of the abdomen or pelvis. PE: GEN: NAD HEENT: Atraumatic, PERRL LUNGS: CTAB HEART: RRR ABD: NABS, soft, obese, discomfort to right at level of umbilicus, some to RUQ, some around to right flank EXTREMITY: No edema SKIN: No rashes, no jaundice NEURO/PSYCH: A & O 3 A/P: A/P: Right mid abd/RUQ/right flank pain - recurrent, now associated w/ dyspepsia and vomiting Minimally elevated lipase Chronic loose stools - mostly post-prandial since cholecystectomy, ?worse now CRC screen - average risk S/p cholecystectomy Hepatic steatosis Chronic normocytic anemia -- Unclear significance of mildly elevated lipase w/ normal pancreas on CT, s/p maria esther, no excessive alcohol use, calcium WNL. Plan for EGD tomorrow afternoon. Agree w/ PPI and rechecking labs tomorrow - will add lipid panel and stool studies for completeness. Okay to try clears tonight and tomorrow for breakfast - NPO by 8:00 a.m. 11/08/18 for EGD. BRAYDEN MCKEON Nov 07, 2018 15:43
[2018-11-07] MEDS: ONDANSETRON PF 4 MG/2 ML VIAL. IV PRN (17:00)
[2018-11-07] MEDS: PANTOPRAZOLE IV PUSH 40 MG VIAL. IVP SCH (17:01)
[2018-11-07] MEDS: DICYCLOMINE 20 MG/2 ML AMPUL. IM SCH ×2 (17:51→23:37)
[2018-11-07 19:00] VITALS: BP 131/47
[2018-11-07] MEDS: ENOXAPARIN 40 MG/0.4 ML SYRINGE. SQ SCH (20:04)
--- NOTE | 2018-11-07 20:11 | NUR ---
Pt complain of pain. MD notified. No new orders received. Will continue to monitor.
[2018-11-07] MEDS: fentaNYL PF VIAL 100 MCG/2 ML VIAL IV PRN (22:04)
[2018-11-07 23:00] VITALS: BP 138/63
[2018-11-07] MEDS ORDERED: ALBUTEROL SULFATE 2.5 MG/3 ML NEBU. INH PRN (23:30)
[2018-11-07] MEDS ORDERED: guaiFENesin/CODEINE 100mg/10mg 5 ML LIQUID PO PRN (23:30)
[2018-11-07] MEDS ORDERED: IBUPROFEN 400 MG TABLET. PO PRN (23:30)
[2018-11-07] MEDS ORDERED: oxyCODONE/APAP 5/325 1 TAB TABLET PO PRN (23:30)
[2018-11-07] MEDS ORDERED: NON FORMULARY ITEM (Naproxen Sodium (Aleve) 220 MG) PO PRN (23:30)
[2018-11-07] MEDS: ALPRAZolam 0.25 MG TABLET PO PRN (23:37)
[2018-11-07] MEDS ORDERED: BISMUTH SUBSALICYLATE 262 MG/15 ML ORAL.SUSP 236ML BOTTLE. PO PRN (23:45)
[2018-11-08] VITALS (12 sets, daily range): BP systolic 102–129; BP diastolic 51–77
[2018-11-08] MEDS: fentaNYL PF VIAL 100 MCG/2 ML VIAL IV PRN ×4 (03:06→20:46)
[2018-11-08] MEDS: DICYCLOMINE 20 MG/2 ML AMPUL. IM SCH ×4 (05:44→23:45)
[2018-11-08] MEDS: IPRATRPIUM/ALBUTEROL 0.5/2.5MG 3 ML NEBU. NEB SCH ×4 (07:26→20:05)
[2018-11-08] MEDS: ENOXAPARIN 40 MG/0.4 ML SYRINGE. SQ SCH ×2 (07:45→19:37)
[2018-11-08 08:01] LABS: BASO % 1 % (0-3); EOS # 0.1 x10^3/uL (0.0-0.7); EOS % 2 % (0-3); HEMATOCRIT 34.2 % (36.0-47.0); HEMOGLOBIN 10.8 g/dL (12.0-15.5); LYMPH # 1.5 x10^3/uL (1.0-4.8); LYMPH % 40 % (24-48); MEAN CORPUSCULAR HEMOGLOBIN 26 pg (25-35); MEAN CORPUSCULAR HGB CONC 32 g/dL (31-37); MEAN CORPUSCULAR VOLUME 84 fL (79-100); MONO # 0.4 x10^3/uL (0.0-1.1); MONO % 10 % (0-9); NEUT # 1.8 x10^3uL (1.8-7.7); NEUT % 47 % (31-73); PLATELET COUNT 202 x10^3/uL (140-400); RED BLOOD COUNT 4.09 x10^6/uL (3.50-5.40); RED CELL DISTRIBUTION WIDTH 14.7 % (11.5-14.5); WHITE BLOOD COUNT 3.8 x10^3/uL (4.0-11.0)
[2018-11-08 08:20] LABS: CALCIUM 8.3 mg/dL (8.5-10.1); CREATININE 0.7 mg/dL (0.6-1.0); GFR 115.2; POTASSIUM 3.9 mmol/L (3.5-5.1)
[2018-11-08] MEDS: predniSONE 20 MG TABLET PO SCH (09:00)
[2018-11-08] MEDS ORDERED: NYSTATIN 100,000 UNIT/GM TOPICAL CREAM 15GM TUBE. TP PRN (09:00)
[2018-11-08] MEDS: PANTOPRAZOLE IV PUSH 40 MG VIAL. IVP SCH (09:15)
--- NOTE | 2018-11-08 10:25 | NUR ---
SW following for discharge planning. Discussed with RN, pt is from home, having an EGD today. SW will continue to follow.
--- NOTE | 2018-11-08 10:46 | PDOC ---
PROGRESS NOTES Chief Complaint Chief Complaint elevated lipase with normal CAT scan findings-? Significance morbid obesity with a bmi of 48 dietary transgression GERD/ PUD? [facility] cholecystectomy History of Present Illness History of Present Illness SHe still continues to have right-sided pain - relieved by bentyl and some IV pain medication Lipase now normal at 99 CAT scan of chest x-ray normal and I provided copies Plan for EGD later 1 PM Plan EGD later MSK pain probably? Vitals Vitals Vital Signs Date Time Temp Pulse Resp B/P (MAP) Pulse Ox O2 Delivery O2 Flow Rate FiO2 11/08/18 09:53 16 Room Air 11/08/18 07:27 97 11/08/18 07:00 97.7 58 119/65 (83) 97.7 Physical Exam General: Alert, Oriented X3, Cooperative, No acute distress Heart: Regular rate, Normal S1, Normal S2, No murmurs Lungs: Clear Abdomen: Normal bowel sounds, Soft, No tenderness Extremities: No clubbing, No cyanosis, No edema, Normal pulses Skin: No rashes, No breakdown, No significant lesion Labs LABS Laboratory Tests Test 11/07/18 12:32 11/07/18 12:44 11/07/18 13:00 11/07/18 13:06 White Blood Count 4.7 x10^3/uL (4.0-11.0) Red Blood Count 4.17 x10^6/uL (3.50-5.40) Hemoglobin 10.8 g/dL (12.0-15.5) Hematocrit 34.5 % (36.0-47.0) Mean Corpuscular Volume 83 fL (79-100) Mean Corpuscular Hemoglobin 26 pg (25-35) Mean Corpuscular Hemoglobin Concent 31 g/dL (31-37) Red Cell Distribution Width 14.8 % (11.5-14.5) Platelet Count 221 x10^3/uL (140-400) Neutrophils (%) (Auto) 62 % (31-73) Lymphocytes (%) (Auto) 27 % (24-48) Monocytes (%) (Auto) 9 % (0-9) Eosinophils (%) (Auto) 1 % (0-3) Basophils (%) (Auto) 1 % (0-3) Neutrophils # (Auto) 2.9 x10^3uL (1.8-7.7) Lymphocytes # (Auto) 1.3 x10^3/uL (1.0-4.8) Monocytes # (Auto) 0.4 x10^3/uL (0.0-1.1) Eosinophils # (Auto) 0.1 x10^3/uL (0.0-0.7) Basophils # (Auto) 0.0 x10^3/uL (0.0-0.2) Sodium Level 140 mmol/L (136-145) Potassium Level 4.3 mmol/L (3.5-5.1) Chloride Level 105 mmol/L (98-107) Carbon Dioxide Level 26 mmol/L (21-32) Anion Gap 9 (6-14) Blood Urea Nitrogen 11 mg/dL (7-20) Creatinine 0.5 mg/dL (0.6-1.0) Estimated GFR (Cockcroft-Gault) 169.9 BUN/Creatinine Ratio 22 (6-20) Glucose Level 91 mg/dL (70-99) Calcium Level 8.5 mg/dL (8.5-10.1) Magnesium Level 1.8 mg/dL (1.8-2.4) Total Bilirubin 0.2 mg/dL (0.2-1.0) Aspartate Amino Transf (AST/SGOT) 12 U/L (15-37) Alanine Aminotransferase (ALT/SGPT) 14 U/L (14-59) Alkaline Phosphatase 55 U/L (46-116) Creatine Kinase 114 U/L (26-192) Creatine Kinase MB (Mass) < 0.5 ng/mL (0.0-3.6) Creatine Kinase MB Relative Index % (0-4) Troponin I Quantitative < 0.017 ng/mL (0.000-0.055) IR-[id number]-[id number]-Type Natriuretic Peptide 77 pg/mL (0-124) Total Protein 6.7 g/dL (6.4-8.2) Albumin 3.5 g/dL (3.4-5.0) Albumin/Globulin Ratio 1.1 (1.0-1.7) Lipase 468 U/L (73-393) Thyroid Stimulating Hormone (TSH) 0.464 uIU/mL (0.358-3.74) Influenza Type A Antigen Negative (NEGATIVE) Influenza Type B Antigen Negative (NEGATIVE) Urine Collection Type Unknown Urine Color Yellow Urine Clarity Clear Urine pH 6.0 Urine Specific [place] 1.025 Urine Protein Negative mg/dL (NEG-TRACE) Urine Glucose (UA) Negative mg/dL (NEG) Urine Ketones (Stick) Negative mg/dL (NEG) Urine Blood Negative (NEG) Urine Nitrite Negative (NEG) Urine Bilirubin Negative (NEG) Urine Urobilinogen Dipstick 0.2 mg/dL (0.2 mg/dL) Urine Leukocyte Esterase Trace (NEG) Urine RBC 0 /HPF (0-2) Urine WBC 1-4 /HPF (0-4) Urine Squamous Epithelial Cells Mod /LPF Urine Bacteria 0 /HPF (0-FEW) Urine Mucus Marked /LPF Urine Opiates Screen Neg (NEG) Urine Methadone Screen Neg (NEG) Urine Barbiturates Neg (NEG) Urine Phencyclidine Screen Neg (NEG) Urine Amphetamine/Methamphetamine Neg (NEG) Urine Benzodiazepines Screen Neg (NEG) Urine Cocaine Screen Neg (NEG) Urine Cannabinoids Screen Neg (NEG) Urine Ethyl Alcohol Neg (NEG) Bedside Urine HCG, Qualitative Hcg negative (Negative) Test 11/08/18 07:15 White Blood Count 3.8 x10^3/uL (4.0-11.0) Red Blood Count 4.09 x10^6/uL (3.50-5.40) Hemoglobin 10.8 g/dL (12.0-15.5) Hematocrit 34.2 % (36.0-47.0) Mean Corpuscular Volume 84 fL (79-100) Mean Corpuscular Hemoglobin 26 pg (25-35) Mean Corpuscular Hemoglobin Concent 32 g/dL (31-37) Red Cell Distribution Width 14.7 % (11.5-14.5) Platelet Count 202 x10^3/uL (140-400) Neutrophils (%) (Auto) 47 % (31-73) Lymphocytes (%) (Auto) 40 % (24-48) Monocytes (%) (Auto) 10 % (0-9) Eosinophils (%) (Auto) 2 % (0-3) Basophils (%) (Auto) 1 % (0-3) Neutrophils # (Auto) 1.8 x10^3uL (1.8-7.7) Lymphocytes # (Auto) 1.5 x10^3/uL (1.0-4.8) Monocytes # (Auto) 0.4 x10^3/uL (0.0-1.1) Eosinophils # (Auto) 0.1 x10^3/uL (0.0-0.7) Basophils # (Auto) 0.0 x10^3/uL (0.0-0.2) Sodium Level 142 mmol/L (136-145) Potassium Level 3.9 mmol/L (3.5-5.1) Chloride Level 107 mmol/L (98-107) Carbon Dioxide Level 28 mmol/L (21-32) Anion Gap 7 (6-14) Blood Urea Nitrogen 8 mg/dL (7-20) Creatinine 0.7 mg/dL (0.6-1.0) Estimated GFR (Cockcroft-Gault) 115.2 Glucose Level 86 mg/dL (70-99) Calcium Level 8.3 mg/dL (8.5-10.1) Triglycerides Level 42 mg/dL (0-150) Cholesterol Level 181 mg/dL (0-200) LDL Cholesterol, Calculated 107 mg/dL (0-100) VLDL Cholesterol, Calculated 8 mg/dL (0-40) Non-HDL Cholesterol Calculated 115 mg/dL (0-129) HDL Cholesterol 66 mg/dL (40-60) Cholesterol/HDL Ratio Lipase 99 U/L (73-393) Review of Systems Review of Systems RT sided abdominal pain, the rest of ROS 14 point negative Assessment and Plan Assessmemt and Plan Problems Medical Problems: (1) Acute pancreatitis Status: Acute (2) Dizziness Status: Acute (3) Nausea Status: Acute Comment Review of Relevant I have reviewed the following items melony (where applicable) has been applied. Labs Laboratory Tests Test 11/07/18 12:32 11/07/18 12:44 11/07/18 13:00 11/07/18 13:06 White Blood Count 4.7 x10^3/uL (4.0-11.0) Red Blood Count 4.17 x10^6/uL (3.50-5.40) Hemoglobin 10.8 g/dL (12.0-15.5) Hematocrit 34.5 % (36.0-47.0) Mean Corpuscular Volume 83 fL (79-100) Mean Corpuscular Hemoglobin 26 pg (25-35) Mean Corpuscular Hemoglobin Concent 31 g/dL (31-37) Red Cell Distribution Width 14.8 % (11.5-14.5) Platelet Count 221 x10^3/uL (140-400) Neutrophils (%) (Auto) 62 % (31-73) Lymphocytes (%) (Auto) 27 % (24-48) Monocytes (%) (Auto) 9 % (0-9) Eosinophils (%) (Auto) 1 % (0-3) Basophils (%) (Auto) 1 % (0-3) Neutrophils # (Auto) 2.9 x10^3uL (1.8-7.7) Lymphocytes # (Auto) 1.3 x10^3/uL (1.0-4.8) Monocytes # (Auto) 0.4 x10^3/uL (0.0-1.1) Eosinophils # (Auto) 0.1 x10^3/uL (0.0-0.7) Basophils # (Auto) 0.0 x10^3/uL (0.0-0.2) Sodium Level 140 mmol/L (136-145) Potassium Level 4.3 mmol/L (3.5-5.1) Chloride Level 105 mmol/L (98-107) Carbon Dioxide Level 26 mmol/L (21-32) Anion Gap 9 (6-14) Blood Urea Nitrogen 11 mg/dL (7-20) Creatinine 0.5 mg/dL (0.6-1.0) Estimated GFR (Cockcroft-Gault) 169.9 BUN/Creatinine Ratio 22 (6-20) Glucose Level 91 mg/dL (70-99) Calcium Level 8.5 mg/dL (8.5-10.1) Magnesium Level 1.8 mg/dL (1.8-2.4) Total Bilirubin 0.2 mg/dL (0.2-1.0) Aspartate Amino Transf (AST/SGOT) 12 U/L (15-37) Alanine Aminotransferase (ALT/SGPT) 14 U/L (14-59) Alkaline Phosphatase 55 U/L (46-116) Creatine Kinase 114 U/L (26-192) Creatine Kinase MB (Mass) < 0.5 ng/mL (0.0-3.6) Creatine Kinase MB Relative Index % (0-4) Troponin I Quantitative < 0.017 ng/mL (0.000-0.055) XA-Znz-X-Type Natriuretic Peptide 77 pg/mL (0-124) Total Protein 6.7 g/dL (6.4-8.2) Albumin 3.5 g/dL (3.4-5.0) Albumin/Globulin Ratio 1.1 (1.0-1.7) Lipase 468 U/L (73-393) Thyroid Stimulating Hormone (TSH) 0.464 uIU/mL (0.358-3.74) Influenza Type A Antigen Negative (NEGATIVE) Influenza Type B Antigen Negative (NEGATIVE) Urine Collection Type Unknown Urine Color Yellow Urine Clarity Clear Urine pH 6.0 Urine Specific [place] 1.025 Urine Protein Negative mg/dL (NEG-TRACE) Urine Glucose (UA) Negative mg/dL (NEG) Urine Ketones (Stick) Negative mg/dL (NEG) Urine Blood Negative (NEG) Urine Nitrite Negative (NEG) Urine Bilirubin Negative (NEG) Urine Urobilinogen Dipstick 0.2 mg/dL (0.2 mg/dL) Urine Leukocyte Esterase Trace (NEG) Urine RBC 0 /HPF (0-2) Urine WBC 1-4 /HPF (0-4) Urine Squamous Epithelial Cells Mod /LPF Urine Bacteria 0 /HPF (0-FEW) Urine Mucus Marked /LPF Urine Opiates Screen Neg (NEG) Urine Methadone Screen Neg (NEG) Urine Barbiturates Neg (NEG) Urine Phencyclidine Screen Neg (NEG) Urine Amphetamine/Methamphetamine Neg (NEG) Urine Benzodiazepines Screen Neg (NEG) Urine Cocaine Screen Neg (NEG) Urine Cannabinoids Screen Neg (NEG) Urine Ethyl Alcohol Neg (NEG) Bedside Urine HCG, Qualitative Hcg negative (Negative) Test 11/08/18 07:15 White Blood Count 3.8 x10^3/uL (4.0-11.0) Red Blood Count 4.09 x10^6/uL (3.50-5.40) Hemoglobin 10.8 g/dL (12.0-15.5) Hematocrit 34.2 % (36.0-47.0) Mean Corpuscular Volume 84 fL (79-100) Mean Corpuscular Hemoglobin 26 pg (25-35) Mean Corpuscular Hemoglobin Concent 32 g/dL (31-37) Red Cell Distribution Width 14.7 % (11.5-14.5) Platelet Count 202 x10^3/uL (140-400) Neutrophils (%) (Auto) 47 % (31-73) Lymphocytes (%) (Auto) 40 % (24-48) Monocytes (%) (Auto) 10 % (0-9) Eosinophils (%) (Auto) 2 % (0-3) Basophils (%) (Auto) 1 % (0-3) Neutrophils # (Auto) 1.8 x10^3uL (1.8-7.7) Lymphocytes # (Auto) 1.5 x10^3/uL (1.0-4.8) Monocytes # (Auto) 0.4 x10^3/uL (0.0-1.1) Eosinophils # (Auto) 0.1 x10^3/uL (0.0-0.7) Basophils # (Auto) 0.0 x10^3/uL (0.0-0.2) Sodium Level 142 mmol/L (136-145) Potassium Level 3.9 mmol/L (3.5-5.1) Chloride Level 107 mmol/L (98-107) Carbon Dioxide Level 28 mmol/L (21-32) Anion Gap 7 (6-14) Blood Urea Nitrogen 8 mg/dL (7-20) Creatinine 0.7 mg/dL (0.6-1.0) Estimated GFR (Cockcroft-Gault) 115.2 Glucose Level 86 mg/dL (70-99) Calcium Level 8.3 mg/dL (8.5-10.1) Triglycerides Level 42 mg/dL (0-150) Cholesterol Level 181 mg/dL (0-200) LDL Cholesterol, Calculated 107 mg/dL (0-100) VLDL Cholesterol, Calculated 8 mg/dL (0-40) Non-HDL Cholesterol Calculated 115 mg/dL (0-129) HDL Cholesterol 66 mg/dL (40-60) Cholesterol/HDL Ratio Lipase 99 U/L (73-393) Laboratory Tests Test 11/07/18 12:32 11/07/18 12:44 11/07/18 13:00 11/07/18 13:06 White Blood Count 4.7 x10^3/uL (4.0-11.0) Red Blood Count 4.17 x10^6/uL (3.50-5.40) Hemoglobin 10.8 g/dL (12.0-15.5) Hematocrit 34.5 % (36.0-47.0) Mean Corpuscular Volume 83 fL (79-100) Mean Corpuscular Hemoglobin 26 pg (25-35) Mean Corpuscular Hemoglobin Concent 31 g/dL (31-37) Red Cell Distribution Width 14.8 % (11.5-14.5) Platelet Count 221 x10^3/uL (140-400) Neutrophils (%) (Auto) 62 % (31-73) Lymphocytes (%) (Auto) 27 % (24-48) Monocytes (%) (Auto) 9 % (0-9) Eosinophils (%) (Auto) 1 % (0-3) Basophils (%) (Auto) 1 % (0-3) Neutrophils # (Auto) 2.9 x10^3uL (1.8-7.7) Lymphocytes # (Auto) 1.3 x10^3/uL (1.0-4.8) Monocytes # (Auto) 0.4 x10^3/uL (0.0-1.1) Eosinophils # (Auto) 0.1 x10^3/uL (0.0-0.7) Basophils # (Auto) 0.0 x10^3/uL (0.0-0.2) Sodium Level 140 mmol/L (136-145) Potassium Level 4.3 mmol/L (3.5-5.1) Chloride Level 105 mmol/L (98-107) Carbon Dioxide Level 26 mmol/L (21-32) Anion Gap 9 (6-14) Blood Urea Nitrogen 11 mg/dL (7-20) Creatinine 0.5 mg/dL (0.6-1.0) Estimated GFR (Cockcroft-Gault) 169.9 BUN/Creatinine Ratio 22 (6-20) Glucose Level 91 mg/dL (70-99) Calcium Level 8.5 mg/dL (8.5-10.1) Magnesium Level 1.8 mg/dL (1.8-2.4) Total Bilirubin 0.2 mg/dL (0.2-1.0) Aspartate Amino Transf (AST/SGOT) 12 U/L (15-37) Alanine Aminotransferase (ALT/SGPT) 14 U/L (14-59) Alkaline Phosphatase 55 U/L (46-116) Creatine Kinase 114 U/L (26-192) Creatine Kinase MB (Mass) < 0.5 ng/mL (0.0-3.6) Creatine Kinase MB Relative Index % (0-4) Troponin I Quantitative < 0.017 ng/mL (0.000-0.055) NG-[id number]-[id number]-Type Natriuretic Peptide 77 pg/mL (0-124) Total Protein 6.7 g/dL (6.4-8.2) Albumin 3.5 g/dL (3.4-5.0) Albumin/Globulin Ratio 1.1 (1.0-1.7) Lipase 468 U/L (73-393) Thyroid Stimulating Hormone (TSH) 0.464 uIU/mL (0.358-3.74) Influenza Type A Antigen Negative (NEGATIVE) Influenza Type B Antigen Negative (NEGATIVE) Urine Collection Type Unknown Urine Color Yellow Urine Clarity Clear Urine pH 6.0 Urine Specific [place] 1.025 Urine Protein Negative mg/dL (NEG-TRACE) Urine Glucose (UA) Negative mg/dL (NEG) Urine Ketones (Stick) Negative mg/dL (NEG) Urine Blood Negative (NEG) Urine Nitrite Negative (NEG) Urine Bilirubin Negative (NEG) Urine Urobilinogen Dipstick 0.2 mg/dL (0.2 mg/dL) Urine Leukocyte Esterase Trace (NEG) Urine RBC 0 /HPF (0-2) Urine WBC 1-4 /HPF (0-4) Urine Squamous Epithelial Cells Mod /LPF Urine Bacteria 0 /HPF (0-FEW) Urine Mucus Marked /LPF Urine Opiates Screen Neg (NEG) Urine Methadone Screen Neg (NEG) Urine Barbiturates Neg (NEG) Urine Phencyclidine Screen Neg (NEG) Urine Amphetamine/Methamphetamine Neg (NEG) Urine Benzodiazepines Screen Neg (NEG) Urine Cocaine Screen Neg (NEG) Urine Cannabinoids Screen Neg (NEG) Urine Ethyl Alcohol Neg (NEG) Bedside Urine HCG, Qualitative Hcg negative (Negative) Test 11/08/18 07:15 White Blood Count 3.8 x10^3/uL (4.0-11.0) Red Blood Count 4.09 x10^6/uL (3.50-5.40) Hemoglobin 10.8 g/dL (12.0-15.5) Hematocrit 34.2 % (36.0-47.0) Mean Corpuscular Volume 84 fL (79-100) Mean Corpuscular Hemoglobin 26 pg (25-35) Mean Corpuscular Hemoglobin Concent 32 g/dL (31-37) Red Cell Distribution Width 14.7 % (11.5-14.5) Platelet Count 202 x10^3/uL (140-400) Neutrophils (%) (Auto) 47 % (31-73) Lymphocytes (%) (Auto) 40 % (24-48) Monocytes (%) (Auto) 10 % (0-9) Eosinophils (%) (Auto) 2 % (0-3) Basophils (%) (Auto) 1 % (0-3) Neutrophils # (Auto) 1.8 x10^3uL (1.8-7.7) Lymphocytes # (Auto) 1.5 x10^3/uL (1.0-4.8) Monocytes # (Auto) 0.4 x10^3/uL (0.0-1.1) Eosinophils # (Auto) 0.1 x10^3/uL (0.0-0.7) Basophils # (Auto) 0.0 x10^3/uL (0.0-0.2) Sodium Level 142 mmol/L (136-145) Potassium Level 3.9 mmol/L (3.5-5.1) Chloride Level 107 mmol/L (98-107) Carbon Dioxide Level 28 mmol/L (21-32) Anion Gap 7 (6-14) Blood Urea Nitrogen 8 mg/dL (7-20) Creatinine 0.7 mg/dL (0.6-1.0) Estimated GFR (Cockcroft-Gault) 115.2 Glucose Level 86 mg/dL (70-99) Calcium Level 8.3 mg/dL (8.5-10.1) Triglycerides Level 42 mg/dL (0-150) Cholesterol Level 181 mg/dL (0-200) LDL Cholesterol, Calculated 107 mg/dL (0-100) VLDL Cholesterol, Calculated 8 mg/dL (0-40) Non-HDL Cholesterol Calculated 115 mg/dL (0-129) HDL Cholesterol 66 mg/dL (40-60) Cholesterol/HDL Ratio Lipase 99 U/L (73-393) Medications Current Medications Ondansetron HCl (Zofran) 4 mg 1X ONCE IV Last administered on 11/07/18at 12:36 ; Start 11/07/18 at 12:15; Stop 11/07/18 at 12:16; Status DC Meclizine HCl (Antivert) 25 mg 1X ONCE PO Last administered on 11/07/18at 12:37 ; Start 11/07/18 at 12:15; Stop 11/07/18 at 12:16; Status DC Sodium Chloride 1,000 ml @ 1,000 mls/hr 1X ONCE IV Last administered on at 12:34; Start 11/07/18 at 12:15; Stop 11/07/18 at 13:14; Status DC Iohexol (Omnipaque 300 Mg/ml) 75 ml 1X ONCE IV Last administered on 11/07/18at 13:25; Start 11/07/18 at 13:00; Stop 11/07/18 at 13:01; Status DC Info (CONTRAST GIVEN -- Rx MONITORING) 1 each PRN DAILY PRN MC SEE COMMENTS; Start 11/07/18 at 13:00; Stop 11/09/18 at 12:59 Ringer's Solution 1,000 ml @ 100 mls/hr Q10H IV Last administered on at 17:11; Start 11/07/18 at 15:00; Stop 11/08/18 at 00:59; Status DC Ondansetron HCl (Zofran) 4 mg PRN Q6HRS PRN IV NAUSEA/VOMITING Last administered on 11/07/18at 17:00; Start 11/07/18 at 14:30 Info (Non-Icu Electrolyte Protocol) 1 ea PRN DAILY PRN MC SEE COMMENTS; Start 11/07/18 at 14:30 Ketorolac Tromethamine (Toradol 30mg Vial) 30 mg PRN Q6HRS PRN IV PAIN Last administered on 11/07/18at 14:32; Start 11/07/18 at 14:30; Stop 11/12/18 at 14:29 Acetaminophen (Tylenol) 650 mg PRN Q6HRS PRN PO Headaches, Temp > 101.5F; Start 11/07/18 at 14:30 Magnesium Hydroxide (Milk Of Magnesia) 2,400 mg PRN Q12HR PRN PO CONSTIPATION 1ST CHOICE; Start 11/07/18 at 14:30 Lactulose (Lactulose) 20 gm PRN Q12HR PRN PO CONSTIPATION 2ND CHOICE; Start 05/18 at 14:30 Enoxaparin Sodium (Lovenox 40mg Syringe) 40 mg BID SQ ; Start 11/07/18 at 21:00 Pantoprazole Sodium (PROTONIX VIAL for IV PUSH) 40 mg DAILY IVP Last administered on 11/08/18at 09:15; Start 11/07/18 at 15:00 Ondansetron HCl (Zofran) 4 mg PRN Q8HRS PRN IV NAUSEA/VOMITING; Start 11/07/18 at 14:45; Stop 11/08/18 at 14:44 Sodium Chloride 1,000 ml @ 125 mls/hr 1X ONCE IV ; Start 11/07/18 at 14:45; Stop 11/07/18 at 22:44; Status Cancel Dicyclomine HCl (Bentyl) 20 mg Q6HRS IM Last administered on 11/07/18at 23:37; Start 11/07/18 at 18:00 Fentanyl Citrate (Fentanyl 2ml Vial) 25 mcg PRN Q2HR PRN IV MODERATE PAIN Last administered on 11/08/18at 05:46; Start 11/07/18 at 21:15 Albuterol Sulfate (Ventolin Neb Soln) 2.5 mg PRN Q6HRS PRN INH SHORTNESS OF BREATH; Start 11/07/18 at 23:30 Alprazolam (Xanax) 0.25 mg PRN BID PRN PO ANXIETY / AGITATION Last administered on 11/07/18at 23:37; Start 11/07/18 at 23:30 Citalopram Hydrobromide (CeleXA) 20 mg QHS PO ; Start 11/08/18 at 21:00 Albuterol/ Ipratropium (Duoneb) 3 ml RTQID NEB Last administered on 11/08/18at 07:26; Start 11/08/18 at 08:00 Oxycodone/ Acetaminophen (Percocet 5/325) 1 tab PRN Q6HRS PRN PO SEVERE PAIN; Start 11/07/18 at 23:30 Prednisone (Prednisone) 20 mg DAILY PO ; Start 11/08/18 at 09:00 Bismuth Subsalicylate (Pepto-Bismol) 262 mg PRN DAILY PRN PO DIARRHEA; Start at 23:45 Guaifenesin/ Codeine Phosphate (Robitussin Ac) 5 ml PRN Q4HRS PRN PO COUGH 1ST CHOICE; Start 11/07/18 at 23:30 Ibuprofen (Motrin) 800 mg PRN Q6HRS PRN PO INFLAMMATION; Start 11/07/18 at 23: 30 Non-Formulary Medication (Naproxen Sodium (Aleve)) 220 mg BID PRN PO PAIN; Start 11/07/18 at 23:30; Status UNV Nystatin (Mycostatin) 1 lester PRN DAILY PRN TP FUNGAL RASH; Start 11/08/18 at 09: 00 Lorazepam (Ativan) 1 mg 1X ONCE IV ; Start 11/07/18 at 23:30; Stop 11/07/18 at 23:31; Status DC Fentanyl Citrate (Fentanyl 2ml Vial) 50 mcg PRN Q2HR PRN IV SEVERE PAIN Last administered on 11/08/18at 09:15; Start 11/08/18 at 05:15 Active Scripts Active Duoneb 0.5-3(2.5) Mg/3 Ml (Albuterol/Ipratropium) 3 Ml Ampul.neb 3 Ml NEB QID PRN Doxycycline Hyclate 100 Mg Capsule 1 Cap PO BID Prednisone 20 Mg Tablet 1 Tab PO DAILY Guaifenesin Ac Cough Syrup (Guaifenesin/Codeine Phosphate) 473 Ml Liquid 5 Ml PO Q4HRS Proair Hfa Inhaler (Albuterol Sulfate) 8.5 Gm Hfa.aer.ad 1 Puff INH PRN Q6HRS PRN Reported Percocet 5-325 Mg Tablet (Oxycodone/Acetaminophen) 1 Each Tablet 1-2 Tab PO PRN Q4-6HRS PRN Pepto-Bismol (Bismuth Subsalicylate) 262 Mg Tab.chew 262 Mg PO PRN DAILY PRN Aleve (Naproxen Sodium) 220 Mg Capsule 220 Mg PO BID PRN Ibuprofen 800 Mg Tablet 800 Mg PO PRN Q6HRS PRN Nystatin 15 Gm Cream..g. 15 Gm TP PRN DAILY PRN Xanax (Alprazolam) 0.25 Mg Tablet 0.25 Mg PO PRN BID PRN Celexa (Citalopram Hydrobromide) 20 Mg Tablet 20 Mg PO QHS Vitals/I & O Vital Sign - Last 24 Hours 11/07/18 11/07/18 11/07/18 11/07/18 11:55 12:34 13:03 13:31 Temp 98.3 98.3 Pulse 58 58 70 56 Resp 18 20 20 20 B/P (MAP) 119/63 (81) 140/64 (89) 129/58 (81) 124/71 (88) Pulse Ox 100 98 99 99 O2 Delivery Room Air Room Air 11/07/18 11/07/18 11/07/18 11/07/18 14:01 14:31 15:15 15:30 Pulse 56 64 62 Resp 20 20 20 B/P (MAP) 137/71 (93) 141/75 (97) 132/66 (88) Pulse Ox 99 97 98 O2 Delivery Room Air Room Air Room Air 11/07/18 11/07/18 11/07/18 11/07/18 15:30 19:00 19:50 22:04 Temp 98.0 98.5 98.0 98.5 Pulse 57 60 Resp 18 18 B/P (MAP) 117/55 (75) 131/47 (75) Pulse Ox 100 98 O2 Delivery Room Air Room Air Room Air Room Air 11/07/18 11/08/18 11/08/18 11/08/18 23:00 03:00 03:06 05:46 Temp 98.5 98.5 98.5 98.5 Pulse 63 71 Resp 18 18 B/P (MAP) 138/63 (88) 124/77 (93) Pulse Ox 100 97 O2 Delivery Room Air Room Air Room Air Room Air 11/08/18 11/08/18 11/08/18 11/08/18 06:16 07:00 07:27 08:00 Temp 97.7 97.7 Pulse 58 Resp 18 B/P (MAP) 119/65 (83) Pulse Ox 98 97 O2 Delivery Room Air Room Air Room Air Room Air 11/08/18 11/08/18 09:15 09:53 Resp 16 16 O2 Delivery Room Air Room Air MARIAA PELAYO MD Nov 08, 2018 10:46
[2018-11-08] MEDS ORDERED: IV RINGERS,LACTATED 1000ML 1,000 ML IV SCH (14:16)
[2018-11-08] MEDS ORDERED: LIDOCAINE 1% PF 2 ML VIAL. ID PRN (14:30)
[2018-11-08] MEDS ORDERED: fentaNYL PF VIAL 100 MCG/2 ML VIAL IV PRN ×2 (14:30)
[2018-11-08] MEDS ORDERED: MIDAZOLAM HCL/PF 2 MG/2 ML VIAL. IV PRN (14:30)
[2018-11-08] MEDS ORDERED: PROPOFOL 40 ML IV ONE (15:09)
[2018-11-08] MEDS ORDERED: LIDOCAINE 2% 100 MG/5 ML SYRINGE. ONE (15:11)
--- NOTE | 2018-11-08 15:23 | PDOC4 ---
Operative Note Operative Note EGD Meds propofol per anesthesia Pre-op dx abd pain s/p maria esther Post- op dx non-erosive gastritis Plan advance diet sb series SIXTO BARROS MD Nov 08, 2018 15:23
[2018-11-08] MEDS: ONDANSETRON PF 4 MG/2 ML VIAL. IV PRN (16:14)
[2018-11-08] MEDS: ACETAMINOPHEN 325 MG TABLET. PO PRN (16:15)
[2018-11-08] MEDS: ALPRAZolam 0.25 MG TABLET PO PRN (20:46)
[2018-11-08] MEDS ORDERED: CITALOPRAM 20 MG TABLET. PO SCH (21:00)
[2018-11-09] MEDS: fentaNYL PF VIAL 100 MCG/2 ML VIAL IV PRN ×3 (01:23→11:37)
[2018-11-09] MEDS: ACETAMINOPHEN 325 MG TABLET. PO PRN (01:46)
[2018-11-09 03:32] VITALS: BP 96/45
[2018-11-09] MEDS: DICYCLOMINE 20 MG/2 ML AMPUL. IM SCH (05:23)
[2018-11-09 07:00] VITALS: BP 95/41
[2018-11-09] MEDS: IPRATRPIUM/ALBUTEROL 0.5/2.5MG 3 ML NEBU. NEB SCH ×3 (07:46→15:57)
[2018-11-09] MEDS ORDERED: DICYCLOMINE HCL 10 MG CAPSULE PO PRN (09:00)
[2018-11-09] MEDS: ENOXAPARIN 40 MG/0.4 ML SYRINGE. SQ SCH (09:00)
--- NOTE | 2018-11-09 09:01 | PDOC ---
Subjective: Subjective: Feeling better. Tolerated dinner last night w/o n/v. Stooled after but denies diarrhea. Pain still there but says this is the best she's felt in awhile. Bentyl helps. Objective: Vital Signs: Vital Signs Date Time Temp Pulse Resp B/P (MAP) Pulse Ox O2 Delivery O2 Flow Rate FiO2 11/09/18 07:46 95 Room Air 11/09/18 07:00 98.2 67 22 95/41 (59) 98.2 11/08/18 15:21 2 Imaging: EGD 11/08 non-erosive gastritis PE: GEN: NAD LUNGS: CTAB HEART: RRR ABD: less right-sided tenderness NEURO/PSYCH: A & O 3 A/P: Right-sided abd pain - better Minimally elevated lipase - resolved, s/p maria esther, normal pancreas on CT Chronic loose stools - stable -- Change to PO PPI, okay to continue Bentyl. Consider Colestid if indicated. Await SBS. If unremarkable, okay to DC and follow-up as outpt. BRAYDEN MCKEON Nov 09, 2018 09:01
--- NOTE | 2018-11-09 09:23 | NUR ---
SW following, pt having an upper GI series today. RN advised no SW needs at this time. SW will continue to follow.
[2018-11-09] MEDS ORDERED: DICY10CA3 PO (09:27)
[2018-11-09] MEDS ORDERED: Pantoprazole PO (09:27)
[2018-11-09] MEDS ORDERED: BARIUM SULFATE 340 GM SUSPENSION. PO ONE (10:30)
[2018-11-09] MEDS ORDERED: SIMETHICONE/SOD BICARB/CITRIC ACID PACKET. PO ONE (10:30)
[2018-11-09] MEDS ORDERED: BARIUM SULFATE 60% 355 ML SUSP PO ONE (10:30)
[2018-11-09 11:00] VITALS: BP 100/54
[2018-11-09] MEDS ORDERED: PANTOPRAZOLE 40 MG TABLET.DR. PO SCH (11:30)
[2018-11-09] MEDS: predniSONE 20 MG TABLET PO SCH (11:32)
--- NOTE | 2018-11-09 11:58 | PDOC3 ---
Discharge Summary Visit Information Date of Admission: Nov 07, 2018 Date of Discharge: Nov 09, 2018 Admitting Diagnosis Comment: Nonerosive gastritis by EGD 11/08/18 Obesity BMI 48.7 Final Diagnosis Problems Medical Problems: (1) Acute pancreatitis Status: Acute (2) Dizziness Status: Acute (3) Nausea Status: Acute Brief Hospital Course Allergies Allergies Coded Allergies Type Severity Reaction Last Updated Verified cefaclor Allergy Intermediate hives 11/08/18 Yes prochlorperazine edisylate Adverse Reaction Intermediate panic attack 11/08/18 Yes prochlorperazine maleate Adverse Reaction Intermediate panic attack 11/08/18 Yes Vital Signs Vital Signs Date Time Temp Pulse Resp B/P (MAP) Pulse Ox O2 Delivery O2 Flow Rate FiO2 11/09/18 11:37 Room Air 11/09/18 07:46 95 11/09/18 07:00 98.2 67 22 95/41 (59) 98.2 11/08/18 15:21 2 Lab Results Laboratory Tests Test 11/07/18 12:32 11/07/18 12:44 11/07/18 13:00 11/07/18 13:06 White Blood Count 4.7 x10^3/uL (4.0-11.0) Red Blood Count 4.17 x10^6/uL (3.50-5.40) Hemoglobin 10.8 g/dL (12.0-15.5) Hematocrit 34.5 % (36.0-47.0) Mean Corpuscular Volume 83 fL (79-100) Mean Corpuscular Hemoglobin 26 pg (25-35) Mean Corpuscular Hemoglobin Concent 31 g/dL (31-37) Red Cell Distribution Width 14.8 % (11.5-14.5) Platelet Count 221 x10^3/uL (140-400) Neutrophils (%) (Auto) 62 % (31-73) Lymphocytes (%) (Auto) 27 % (24-48) Monocytes (%) (Auto) 9 % (0-9) Eosinophils (%) (Auto) 1 % (0-3) Basophils (%) (Auto) 1 % (0-3) Neutrophils # (Auto) 2.9 x10^3uL (1.8-7.7) Lymphocytes # (Auto) 1.3 x10^3/uL (1.0-4.8) Monocytes # (Auto) 0.4 x10^3/uL (0.0-1.1) Eosinophils # (Auto) 0.1 x10^3/uL (0.0-0.7) Basophils # (Auto) 0.0 x10^3/uL (0.0-0.2) Sodium Level 140 mmol/L (136-145) Potassium Level 4.3 mmol/L (3.5-5.1) Chloride Level 105 mmol/L (98-107) Carbon Dioxide Level 26 mmol/L (21-32) Anion Gap 9 (6-14) Blood Urea Nitrogen 11 mg/dL (7-20) Creatinine 0.5 mg/dL (0.6-1.0) Estimated GFR (Cockcroft-Gault) 169.9 BUN/Creatinine Ratio 22 (6-20) Glucose Level 91 mg/dL (70-99) Calcium Level 8.5 mg/dL (8.5-10.1) Magnesium Level 1.8 mg/dL (1.8-2.4) Total Bilirubin 0.2 mg/dL (0.2-1.0) Aspartate Amino Transf (AST/SGOT) 12 U/L (15-37) Alanine Aminotransferase (ALT/SGPT) 14 U/L (14-59) Alkaline Phosphatase 55 U/L (46-116) Creatine Kinase 114 U/L (26-192) Creatine Kinase MB (Mass) < 0.5 ng/mL (0.0-3.6) Creatine Kinase MB Relative Index % (0-4) Troponin I Quantitative < 0.017 ng/mL (0.000-0.055) AR-Dvl-S-Type Natriuretic Peptide 77 pg/mL (0-124) Total Protein 6.7 g/dL (6.4-8.2) Albumin 3.5 g/dL (3.4-5.0) Albumin/Globulin Ratio 1.1 (1.0-1.7) Lipase 468 U/L (73-393) Thyroid Stimulating Hormone (TSH) 0.464 uIU/mL (0.358-3.74) Influenza Type A Antigen Negative (NEGATIVE) Influenza Type B Antigen Negative (NEGATIVE) Urine Collection Type Unknown Urine Color Yellow Urine Clarity Clear Urine pH 6.0 Urine Specific [place] 1.025 Urine Protein Negative mg/dL (NEG-TRACE) Urine Glucose (UA) Negative mg/dL (NEG) Urine Ketones (Stick) Negative mg/dL (NEG) Urine Blood Negative (NEG) Urine Nitrite Negative (NEG) Urine Bilirubin Negative (NEG) Urine Urobilinogen Dipstick 0.2 mg/dL (0.2 mg/dL) Urine Leukocyte Esterase Trace (NEG) Urine RBC 0 /HPF (0-2) Urine WBC 1-4 /HPF (0-4) Urine Squamous Epithelial Cells Mod /LPF Urine Bacteria 0 /HPF (0-FEW) Urine Mucus Marked /LPF Urine Opiates Screen Neg (NEG) Urine Methadone Screen Neg (NEG) Urine Barbiturates Neg (NEG) Urine Phencyclidine Screen Neg (NEG) Urine Amphetamine/Methamphetamine Neg (NEG) Urine Benzodiazepines Screen Neg (NEG) Urine Cocaine Screen Neg (NEG) Urine Cannabinoids Screen Neg (NEG) Urine Ethyl Alcohol Neg (NEG) Bedside Urine HCG, Qualitative Hcg negative (Negative) Test 11/08/18 07:15 White Blood Count 3.8 x10^3/uL (4.0-11.0) Red Blood Count 4.09 x10^6/uL (3.50-5.40) Hemoglobin 10.8 g/dL (12.0-15.5) Hematocrit 34.2 % (36.0-47.0) Mean Corpuscular Volume 84 fL (79-100) Mean Corpuscular Hemoglobin 26 pg (25-35) Mean Corpuscular Hemoglobin Concent 32 g/dL (31-37) Red Cell Distribution Width 14.7 % (11.5-14.5) Platelet Count 202 x10^3/uL (140-400) Neutrophils (%) (Auto) 47 % (31-73) Lymphocytes (%) (Auto) 40 % (24-48) Monocytes (%) (Auto) 10 % (0-9) Eosinophils (%) (Auto) 2 % (0-3) Basophils (%) (Auto) 1 % (0-3) Neutrophils # (Auto) 1.8 x10^3uL (1.8-7.7) Lymphocytes # (Auto) 1.5 x10^3/uL (1.0-4.8) Monocytes # (Auto) 0.4 x10^3/uL (0.0-1.1) Eosinophils # (Auto) 0.1 x10^3/uL (0.0-0.7) Basophils # (Auto) 0.0 x10^3/uL (0.0-0.2) Sodium Level 142 mmol/L (136-145) Potassium Level 3.9 mmol/L (3.5-5.1) Chloride Level 107 mmol/L (98-107) Carbon Dioxide Level 28 mmol/L (21-32) Anion Gap 7 (6-14) Blood Urea Nitrogen 8 mg/dL (7-20) Creatinine 0.7 mg/dL (0.6-1.0) Estimated GFR (Cockcroft-Gault) 115.2 Glucose Level 86 mg/dL (70-99) Calcium Level 8.3 mg/dL (8.5-10.1) Triglycerides Level 42 mg/dL (0-150) Cholesterol Level 181 mg/dL (0-200) LDL Cholesterol, Calculated 107 mg/dL (0-100) VLDL Cholesterol, Calculated 8 mg/dL (0-40) Non-HDL Cholesterol Calculated 115 mg/dL (0-129) HDL Cholesterol 66 mg/dL (40-60) Cholesterol/HDL Ratio Lipase 99 U/L (73-393) Brief Hospital Course Ms. House is a 33 old -[place] female obese, admitted because of abdominal pain. Initially thought to have acute pancreatitis with mildly elevated lipase but CT is normal. EGD was done which only showed nonerosive gastritis. Patient continues to have right sided pain but CT abdomen is negative. Couldn't help but wonder if this is all MSK. INitially better with Bentyl but not anymore. But willing to try Bentyl for couple more weeks and PPI and to follow- up with PCP regarding this. So far workup. GI-oakley is negative Consults: GI Procedures performed EGD 11/08/18 Discharge Information Condition at Discharge: Improved, Stable Follow Up: Weeks (pcp [facility]akhwinder [facility]. [facility]?) Disposition/Orders: D/C to Home Scheduled Citalopram Hydrobromide (Celexa) 20 Mg Tablet, 20 MG PO QHS, (Reported) Entered as Reported by: HEIDI SEGURA on 10/23/14 0900 Last Action: Continued on 11/07/18 2320 by SAMIA UMAÑA MD Dicyclomine Hcl (Dicyclomine Hcl) 10 Mg Capsule, 1 CAP PO PRN Q6HRS for abd pain , #60 Ref 1 Prescribed by: MARIAA PELAYO on 11/09/18926 Doxycycline Hyclate (Doxycycline Hyclate) 100 Mg Capsule, 1 CAP PO BID, #14 Prescribed by: JAH HUMPHRIES MD on 08/01/18411 Last Action: HELD on 11/07/182318 by SAMIA UMAÑA MD Guaifenesin/Codeine Phosphate (Guaifenesin Ac Cough Syrup) 473 Ml Liquid, 5 ML PO Q4HRS, #240 Prescribed by: JAH HUMPHRIES MD on 08/01/18411 Last Action: Converted on 11/07/182319 by SAMIA UMAÑA MD Prednisone (Prednisone) 20 Mg Tablet, 1 TAB PO DAILY, #5 Prescribed by: JAH HUMPHRIES MD on 08/01/18411 Last Action: Continued on 11/07/182319 by SAMIA UMAÑA MD [Pantoprazole] 40 MG TABLET.DR, 40 MG PO DAILYAC for gastrtis MDD 1, #30 Prescribed by: MARIAA PELAYO on 11/09/18926 Scheduled PRN Albuterol Sulfate (Proair Hfa Inhaler) 8.5 Gm Hfa.aer.ad, 1 PUFF INH PRN Q6HRS PRN for SHORTNESS OF BREATH, #1 Ref 0 Prescribed by: NIKKI HUFF APRN on 03/21/17 1252 Last Action: Continued on 11/07/182319 by SAMIA UMAÑA MD Alprazolam (Xanax) 0.25 Mg Tablet, 0.25 MG PO PRN BID PRN for ANXIETY / AGITATION, Ref 0 (Reported) Entered as Reported by: OLGA LIDIA GONZALEZ on 07/20/18 1443 Last Action: Continued on 11/07/182319 by SAMIA UMAÑA MD Bismuth Subsalicylate (Pepto-Bismol) 262 Mg Tab.chew, 262 MG PO PRN DAILY PRN for SEE COMMENTS, (Reported) Entered as Reported by: OLGA LIDIA GONZALEZ on 07/20/18 1443 Last Action: Converted on 11/07/182319 by SAMIA MUAÑA MD Ibuprofen (Ibuprofen) 800 Mg Tablet, 800 MG PO PRN Q6HRS PRN for INFLAMMATION, ( Reported) Entered as Reported by: OLGA LIDIA GONZALEZ on 07/20/181442 Last Action: Converted on 11/07/182319 by SAMIA UMAÑA MD Ipratropium/Albuterol Sulfate (Duoneb 0.5-3(2.5) Mg/3 Ml) 3 Ml Ampul.neb, 3 ML NEB QID PRN for SHORTNESS OF BREATH, #30 Prescribed by: JAH HUMPHRIES MD on 08/01/18419 Last Action: Continued on 11/07/182319 by SAMIA UMAÑA MD Naproxen Sodium (Aleve) 220 Mg Capsule, 220 MG PO BID PRN for PAIN, (Reported) Entered as Reported by: OLGA LIDIA GONZALEZ on 07/20/181442 Last Action: Converted on 11/07/182319 by SAMIA UMAÑA MD Nystatin (Nystatin) 15 Gm Cream..g., 15 GM TP PRN DAILY PRN for RASH, (Reported) Entered as Reported by: OLGA LIDIA GONZALEZ on 07/20/181442 Last Action: Converted on 11/07/182319 by SAMIA UMAÑA MD Oxycodone/Apap 5-325 (Percocet 5-325 Mg Tablet ) 1 Each Tablet, 1-2 TAB PO PRN Q4-6HRS PRN for PAIN, #30 Ref 0 (Reported) Entered as Reported by: ADAM PRADO on 07/25/18 0902 Last Action: Continued on 11/07/182319 by MD GITA BRAUN CHERRIE Y MD Nov 09, 2018 11:58
[2018-11-09] MEDS: ALPRAZolam 0.25 MG TABLET PO PRN (13:24)
[2018-11-09 15:00] VITALS: BP 121/52
--- NOTE | 2018-11-09 15:00 | NUR ---
Rodiology contacted re: upper GI series being read. Notified of pt's d/c pending due to results.
--- NOTE | 2018-11-09 16:06 | NUR ---
Radiology contacted re: someone reading upper GI series taken this am. Tech stated they would pass on it need to be read for possible d/c home today.
--- NOTE | 2018-11-09 16:15 | RAD ---
Examination: UGI SERIES W AIR/BARIUM NO KUB History: 1.6 MINUTES FT
18 IMAGES
REFLUX, RIGHT ABDOMINAL PAIN X1.5 WEEKS Comparison/Correlation: None Findings: Single contrast upper GI exam was performed. Fluoroscopy was utilized for 1.6 minutes. 18 images were acquired. Esophageal motility is normal. No esophageal webs, diverticula, or strictures. Contrast flows freely into the stomach. Gastric fold pattern is unremarkable. No suspicious filling defects within the stomach. Contrast flows freely into duodenum. Duodenal bulb and sweep are normal. Right upper quadrant surgical clips are present. Prone Valsalva drinking views demonstrate small sliding hiatal hernia. No gastroesophageal reflux. Impression: Small sliding hiatal hernia. No gastroesophageal reflux. Electronically signed by: Isaac Gerber MD (11/09/2018 4:12 PM) [facility]
--- NOTE | 2018-11-09 17:51 | NUR ---
Pt. discharged to home with Rx, verbalized understanding of discharge instructions.
[2019-01-04] MEDS ORDERED: SULF1TAB24 PO (22:01)
== END 2018-11-09 17:54 | disposition home or self-care (01) | DRG 392 ==
LOC: ER 11:43 → 4 NORTH 14:17
PROVIDERS: ADMIT Internal Medicine; ATTEND Internal Medicine
PROC: 0DJ08ZZ Inspection of Upper Intestinal Tract, Via Natural or Artificial Opening Endoscopic (ICD-10-PCS; principal; 2018-11-08 14:30)
DX: K29.70 Gastritis, unspecified, without bleeding (principal); Z68.42 Body mass index [BMI] 45.0-49.9, adult; E66.01 Morbid (severe) obesity due to excess calories; F41.0 Panic disorder [episodic paroxysmal anxiety]; J45.909 Unspecified asthma, uncomplicated; K76.0 Fatty (change of) liver, not elsewhere classified; Z80.9 Family history of malignant neoplasm, unspecified; Z82.49 Family history of ischemic heart disease and other diseases of the circulatory system; Z90.49 Acquired absence of other specified parts of digestive tract
CPT/HCPCS: 36415; 43235; 71045; 74177; 74246; 80048; 80053; 80061; 80307; 81001; 81025; 82553; 83690; 83735; 83880; 84443; 84484; 85025; 87045; 87086; 87804; 93005; 94640; 94760; 96361; 96374; 96375; C9113; J0500; J1885; J2405; J2704; J3010; J7030; J7120; J7512; J7620; J8597; Q9967; 99285-25

== ENCOUNTER 2019-04-23 09:07 | Emergency (ER) | payer SELFPAY ==
[~2019-04-23] VITALS: Ht 160 cm; Wt 122.0 kg
[~2019-04-23 09:07] MED LIST changes: +DICY10CA3 PO; +LORA-434 PO; +Pantoprazole PO
[2019-04-23] MEDS ORDERED: MORPHINE SULFATE 10 MG/ML VIAL. IV ONE (10:30)
[2019-04-23] MEDS ORDERED: IV NORMAL SALINE 1000ML BAG 1,000 ML IV ONE (10:30)
[2019-04-23] MEDS ORDERED: ONDANSETRON PF 4 MG/2 ML VIAL. IV ONE (10:30)
[2019-04-23] MEDS ORDERED: FAMOTIDINE 20 MG/2 ML VIAL IVP ONE (10:30)
[2019-04-23 10:44] LABS: BILIRUBIN,URINE NEGATIVE (NEG); CLARITY,URINE CLEAR; NITRITE,URINE NEGATIVE (NEG); PH,URINE 5.5; PROTEIN,URINE NEGATIVE (NEG-TRACE); UROBILINOGEN,URINE 0.2 mg/dL (0.2 mg/dL)
[2019-04-23] MEDS ORDERED: IOHEXOL 300 MG/ML 100ML VIAL. IV ONE (10:45)
[2019-04-23 10:48] LABS: BARBITURATES NEG (NEG); BENZODIAZEPINES NEG (NEG); CANNABINOIDS NEG (NEG); COCAINE NEG (NEG); METHADONE NEG (NEG); OPIATES POS (NEG); PHENCYCLIDINE NEG (NEG)
[2019-04-23 10:50] LABS: AMPHETAMINE/METHAMPHETAMINE NEG (NEG)
[2019-04-23 10:51] LABS: BASO # 0.1 x10^3/uL (0.0-0.2); BASO % 1 % (0-3); EOS # 0.1 x10^3/uL (0.0-0.7); EOS % 2 % (0-3); HEMATOCRIT 38.3 % (36.0-47.0); HEMOGLOBIN 12.4 g/dL (12.0-15.5); LYMPH # 1.4 x10^3/uL (1.0-4.8); LYMPH % 31 % (24-48); MEAN CORPUSCULAR HEMOGLOBIN 27 pg (25-35); MEAN CORPUSCULAR HGB CONC 33 g/dL (31-37); MEAN CORPUSCULAR VOLUME 83 fL (79-100); MONO # 0.3 x10^3/uL (0.0-1.1); MONO % 8 % (0-9); NEUT # 2.5 x10^3/uL (1.8-7.7); NEUT % 58 % (31-73); PLATELET COUNT 205 x10^3/uL (140-400); RED BLOOD COUNT 4.63 x10^6/uL (3.50-5.40); RED CELL DISTRIBUTION WIDTH 15.2 % (11.5-14.5); WHITE BLOOD COUNT 4.3 x10^3/uL (4.0-11.0)
[2019-04-23 10:55] LABS: COLOR,URINE YELLOW
[2019-04-23 10:56] LABS: SQUAMOUS EPITHELIAL CELL,UR MANY /LPF
[2019-04-23 10:57] LABS: BACTERIA,URINE FEW /HPF (0-FEW); RBC,URINE OCC /HPF (0-2); WBC,URINE OCC /HPF (0-4)
[2019-04-23] MEDS ORDERED: CONTRAST GIVEN. MC PRN (11:00)
[2019-04-23 11:02] LABS: CALCIUM 9.5 mg/dL (8.5-10.1); CREATININE 0.7 mg/dL (0.6-1.0); GFR 115.2; POTASSIUM 4.2 mmol/L (3.5-5.1)
[2019-04-23 11:08] LABS: ALBUMIN 3.8 g/dL (3.4-5.0); ALBUMIN/GLOBULIN RATIO 0.9 (1.0-1.7); TOTAL BILIRUBIN 0.5 mg/dL (0.2-1.0)
--- NOTE | 2019-04-23 11:53 | RAD ---
CT ABD PELV W/ IV CONTRST ONLY Indication: Abdominal pain Technique: Postcontrast CT imaging was performed of the abdomen pelvis, multiplanar reconstruction images submitted. One or more of the following individualized dose reduction techniques were utilized for this examination: 1. Automated exposure control 2. Adjustment of the mA and/or kV according to patient size 3. Use of iterative reconstruction technique. Comparison: November 07, 2018 Findings: There is no significant abnormality of the limited visualized lung bases. No focal abnormality is identified of the liver, spleen, pancreas. There has been cholecystectomy. Both kidneys enhance, no hydronephrosis. There is no adrenal nodularity. Accurate evaluation of bowel is limited without oral contrast. Bowel is not dilated. There is no free air. Normal appendix is visualized without adjacent inflammatory change. There is retained stool greater of the transverse colon. There is trace dependent free fluid in the pelvis, although could be physiologic. There is narrowing of the L5-S1 intervertebral disc space likely in part on developmental basis. There is disc osteophyte complex/osteophytes indenting the ventral thecal sac at the T8-9 level. There is small ventral fat-containing hernia without internal bowel above the umbilicus, neck about 0.3 cm image 44 series 2. IMPRESSION: 1. There is no significant inflammatory change. There is no CT evidence of acute appendicitis. There is retained stool greater of the transverse colon. Trace dependent free fluid in the pelvis may be physiologic. There is small fat-containing ventral hernia. Electronically signed by: James Vaughan MD (04/23/2019 11:50 AM) [id number]
[2019-04-23] MEDS ORDERED: MAGNESIUM CITRATE 296 ML SOLUTION. PO ONE (13:15)
[2019-04-23] MEDS ORDERED: POLY17PO29 PO (13:20)
[2019-04-23] MEDS ORDERED: ONDA4TAB7 PO (13:20)
[2019-04-23] MEDS ORDERED: MAGN296S9 PO (13:20)
--- NOTE | 2019-04-23 13:20 | PHYS DOC ---
Past Medical History Past Medical History: Anxiety, Asthma, Other Additional Past Medical Histor: gall bladder removed, c section x2. Past Surgical History: Cholecystectomy, Additional Past Surgical Histo: open heart, Alcohol Use: Occasionally Drug Use: None Adult General Chief Complaint Chief Complaint: ABDOMINAL PAIN HPI HPI Patient is a 33 year old female with history of anxiety, asthma, cholecystectomy, who presents to the ED today complaining of 8 out of 10 intermittent sharp epigastric abdominal pain radiating to the right upper quadrant that began yesterday. Patient is also complaining of nausea with no vomiting. Denies any chance she is . Denies any urgency, frequency, dysuria. Review of Systems Review of Systems Constitutional: Denies fever or chills [] Eyes: Denies change in visual acuity, redness, or eye pain [] HENT: Denies nasal congestion or sore throat [] Respiratory: Denies cough or shortness of breath [] Cardiovascular: No additional information not addressed in HPI [] GI: Reports epigastric abdominal pain, right upper quadrant abdominal pain with nausea denies vomiting, bloody stools or diarrhea [] : Denies dysuria or hematuria [] Musculoskeletal: Denies back pain or joint pain [] Integument: Denies rash or skin lesions [] Neurologic: Denies headache, focal weakness or sensory changes [] All other systems were reviewed and found to be within normal limits, except as documented in this note. Current Medications Current Medications Current Medications Medications (Trade) Dose Ordered Sig/Kareen Start Time Stop Time Status Last Admin Dose Admin Famotidine (Pepcid Vial) 20 mg 1X ONCE 04/23/19 10:30 04/23/19 10:31 DC 04/23/19 10:51 20 MG Info (CONTRAST GIVEN -- Rx MONITORING) 1 each PRN DAILY PRN 04/23/19 11:00 04/25/19 10:59 Iohexol (Omnipaque 300 Mg/ml) 75 ml 1X ONCE 04/23/19 10:45 04/23/19 10:47 DC 04/23/19 11:38 75 ML Morphine Sulfate (Morphine Sulfate) 5 mg 1X ONCE 04/23/19 10:30 04/23/19 10:31 DC 04/23/19 10:51 5 MG Ondansetron HCl (Zofran) 4 mg 1X ONCE 04/23/19 10:30 04/23/19 10:31 DC 04/23/19 10:51 4 MG Sodium Chloride 1,000 ml @ 1,000 mls/hr 1X ONCE 04/23/19 10:30 04/23/19 11:29 DC 04/23/19 10:51 1,000 MLS/HR Allergies Allergies Allergies Coded Allergies Type Severity Reaction Last Updated Verified cefaclor Allergy Intermediate hives 11/08/18 Yes prochlorperazine edisylate Adverse Reaction Intermediate panic attack 11/08/18 Yes prochlorperazine maleate Adverse Reaction Intermediate panic attack 11/08/18 Yes Physical Exam Physical Exam Constitutional: Well developed, well nourished, no acute distress, non-toxic appearance. [] HENT: Normocephalic, atraumatic, bilateral external ears normal, oropharynx moist, no oral exudates, nose normal. [] Eyes: PERRLA, EOMI, conjunctiva normal, no discharge. [] Neck: Normal range of motion, no tenderness, supple, no stridor. [] Cardiovascular:Heart rate regular rhythm, no murmur [] Lungs & Thorax: Bilateral breath sounds clear to auscultation [] Abdomen: Bowel sounds normal, soft, mild epigastric tenderness on exam, slight right upper quadrant tenderness, no right lower quadrant tenderness, no masses, no pulsatile masses. [] Skin: Warm, dry, no erythema, no rash. [] Back: No tenderness, no CVA tenderness. [] Extremities: No tenderness, no cyanosis, no clubbing, ROM intact, no edema. [] Neurologic: Alert and oriented X 3, normal motor function, normal sensory function, no focal deficits noted. [] Psychologic: Affect normal, judgement normal, mood normal. [] Current Patient Data Vital Signs Vital Signs Date Time Temp Pulse Resp B/P (MAP) Pulse Ox O2 Delivery O2 Flow Rate FiO2 04/23/19 12:30 68 18 131/78 (95) 98 Room Air 04/23/19 10:14 98.3 98.3 Lab Values Laboratory Tests Test 04/23/19 09:45 04/23/19 09:54 04/23/19 10:32 Urine Collection Type Unknown Urine Color Yellow Urine Clarity Clear Urine pH 5.5 Urine Specific [place] 1.025 Urine Protein Negative mg/dL (NEG-TRACE) Urine Glucose (UA) Negative mg/dL (NEG) Urine Ketones (Stick) Negative mg/dL (NEG) Urine Blood Negative (NEG) Urine Nitrite Negative (NEG) Urine Bilirubin Negative (NEG) Urine Urobilinogen Dipstick 0.2 mg/dL (0.2 mg/dL) Urine Leukocyte Esterase Negative (NEG) Urine RBC Occ /HPF (0-2) Urine WBC Occ /HPF (0-4) Urine Squamous Epithelial Cells Many /LPF Urine Bacteria Few /HPF (0-FEW) Urine Mucus Marked /LPF Urine Opiates Screen Pos (NEG) Urine Methadone Screen Neg (NEG) Urine Barbiturates Neg (NEG) Urine Phencyclidine Screen Neg (NEG) Urine Amphetamine/Methamphetamine Neg (NEG) Urine Benzodiazepines Screen Neg (NEG) Urine Cocaine Screen Neg (NEG) Urine Cannabinoids Screen Neg (NEG) Urine Ethyl Alcohol Neg (NEG) POC Urine HCG, Qualitative Hcg negative (Negative) White Blood Count 4.3 x10^3/uL (4.0-11.0) Red Blood Count 4.63 x10^6/uL (3.50-5.40) Hemoglobin 12.4 g/dL (12.0-15.5) Hematocrit 38.3 % (36.0-47.0) Mean Corpuscular Volume 83 fL (79-100) Mean Corpuscular Hemoglobin 27 pg (25-35) Mean Corpuscular Hemoglobin Concent 33 g/dL (31-37) Red Cell Distribution Width 15.2 % (11.5-14.5) H Platelet Count 205 x10^3/uL (140-400) Neutrophils (%) (Auto) 58 % (31-73) Lymphocytes (%) (Auto) 31 % (24-48) Monocytes (%) (Auto) 8 % (0-9) Eosinophils (%) (Auto) 2 % (0-3) Basophils (%) (Auto) 1 % (0-3) Neutrophils # (Auto) 2.5 x10^3/uL (1.8-7.7) Lymphocytes # (Auto) 1.4 x10^3/uL (1.0-4.8) Monocytes # (Auto) 0.3 x10^3/uL (0.0-1.1) Eosinophils # (Auto) 0.1 x10^3/uL (0.0-0.7) Basophils # (Auto) 0.1 x10^3/uL (0.0-0.2) Sodium Level 139 mmol/L (136-145) Potassium Level 4.2 mmol/L (3.5-5.1) Chloride Level 103 mmol/L (98-107) Carbon Dioxide Level 30 mmol/L (21-32) Anion Gap 6 (6-14) Blood Urea Nitrogen 13 mg/dL (7-20) Creatinine 0.7 mg/dL (0.6-1.0) Estimated GFR (Cockcroft-Gault) 115.2 BUN/Creatinine Ratio 19 (6-20) Glucose Level 85 mg/dL (70-99) Calcium Level 9.5 mg/dL (8.5-10.1) Total Bilirubin 0.5 mg/dL (0.2-1.0) Aspartate Amino Transferase (AST) 22 U/L (15-37) Alanine Aminotransferase (ALT) 19 U/L (14-59) Alkaline Phosphatase 55 U/L (46-116) Total Protein 8.0 g/dL (6.4-8.2) Albumin 3.8 g/dL (3.4-5.0) Albumin/Globulin Ratio 0.9 (1.0-1.7) L Lipase 89 U/L (73-393) Ethyl Alcohol Level < 10 mg/dL (0-10) Laboratory Tests 04/23/19 10:32 Laboratory Tests 04/23/19 10:32 EKG EKG [] Radiology/Procedures Radiology/Procedures []PROCEDURE: CT ABD PELV W/ IV CONTRST ONLY CT ABD PELV W/ IV CONTRST ONLY Indication: Abdominal pain Technique: Postcontrast CT imaging was performed of the abdomen pelvis, multiplanar reconstruction images submitted. One or more of the following individualized dose reduction techniques were utilized for this examination: 1. Automated exposure control 2. Adjustment of the mA and/or kV according to patient size 3. Use of iterative reconstruction technique. Comparison: November 07, 2018 Findings: There is no significant abnormality of the limited visualized lung bases. No focal abnormality is identified of the liver, spleen, pancreas. There has been cholecystectomy. Both kidneys enhance, no hydronephrosis. There is no adrenal nodularity. Accurate evaluation of bowel is limited without oral contrast. Bowel is not dilated. There is no free air. Normal appendix is visualized without adjacent inflammatory change. There is retained stool greater of the transverse colon. There is trace dependent free fluid in the pelvis, although could be physiologic. There is narrowing of the L5-S1 intervertebral disc space likely in part on developmental basis. There is disc osteophyte complex/osteophytes indenting the ventral thecal sac at the T8-9 level. There is small ventral fat-containing hernia without internal bowel above the umbilicus, neck about 0.3 cm image 44 series 2. IMPRESSION: 1. There is no significant inflammatory change. There is no CT evidence of acute appendicitis. There is retained stool greater of the transverse colon. Trace dependent free fluid in the pelvis may be physiologic. There is small fat-containing ventral hernia. Electronically signed by: Quin Navarro MD (04/23/2019 11:50 AM) [id number] DICTATED and SIGNED BY: UQIN NAVARRO MD Course & Med Decision Making Course & Med Decision Making Pertinent Labs and Imaging studies reviewed. (See chart for details) This is a 33-year-old. Patient presenting to the ED today complaining of epigastric abdominal pain radiating to the right upper quadrant with the nausea that began yesterday. Negative urine hCG, urine analysis is negative for any acute findings, CBC, CMP, lipase no acute findings. CT of the abdomen and pelvic was noted for constipation although slow acute findings. Patient was given mag citrate in the ED, discharged with education on how to manage constipation Dragon Disclaimer Dragon Disclaimer This electronic medical record was generated, in whole or in part, using a voice recognition dictation system. Departure Departure Impression: Primary Impression: Constipation Disposition: 01 HOME, SELF-CARE Condition: STABLE Referrals: MARY LOU TORRES APRN (PCP) follow up in one week Patient Instructions: Constipation, Adult, [id number] Additional Instructions: You were evaluated in the Ed and were noted to be constipated. As discussed increase your dietary fiber intake, increase your water intake, try to exercise. Take [id number] magnesium citrate any time if constipated also take MiraLAX every day. Follow-up with your doctor in one week. Scripts Polyethylene Glycol 3350 (MIRALAX) 17 Gm Powd.pack 1 PACKET PO DAILY, #30 PACKET 3 Refills Prov: JACINTA PEREZ APRN 04/23/19 Magnesium Citrate (MAGNESIUM CITRATE) 296 Ml Solution 296 ML PO ONCE, #296 ML Prov: JACINTA PEREZ APRN 04/23/19 Ondansetron Hcl (ZOFRAN) 4 Mg Tablet 1 TAB PO Q6HRS, #20 TAB Prov: JACINTA PEREZ APRN 04/23/19 Problem Qualifiers Primary Impression: Constipation Constipation type: unspecified constipation type Qualified Codes: K59.00 - Constipation, unspecified JACINTA PEREZ APRN Apr 23, 2019 13:20
[2019-04-23 14:00] VITALS: BP 123/79
== END 2019-04-23 14:07 | disposition home or self-care (01) ==
LOC: ER 09:07
DX: K59.00 Constipation, unspecified (principal); J45.909 Unspecified asthma, uncomplicated; K43.9 Ventral hernia without obstruction or gangrene; Z90.49 Acquired absence of other specified parts of digestive tract
CPT/HCPCS: 36415; 74177; 80053; 80307; 81001; 81025; 83690; 85025; 96374; 96375; 99285; G0480; J2270; J2405; J3490; J7030; Q9967

== ENCOUNTER 2019-04-27 13:59 | Emergency (ER) | payer OTHER ==
[~2019-04-27] VITALS: Ht 160 cm; Wt 122.0 kg
[~2019-04-27 13:59] MED LIST changes: +MAGN296S9 PO; +POLY17PO29 PO
[2019-04-27] MEDS ORDERED: ONDANSETRON PF 4 MG/2 ML VIAL. ONE (15:03)
[2019-04-27] MEDS ORDERED: IV NORMAL SALINE 1000ML BAG 1,000 ML IV SCH (15:20)
[2019-04-27 15:30] LABS: BASO % 1 % (0-3); EOS # 0.1 x10^3/uL (0.0-0.7); EOS % 1 % (0-3); HEMATOCRIT 34.6 % (36.0-47.0); HEMOGLOBIN 11.1 g/dL (12.0-15.5); LYMPH # 1.3 x10^3/uL (1.0-4.8); LYMPH % 21 % (24-48); MEAN CORPUSCULAR HEMOGLOBIN 27 pg (25-35); MEAN CORPUSCULAR HGB CONC 32 g/dL (31-37); MEAN CORPUSCULAR VOLUME 84 fL (79-100); MONO # 0.4 x10^3/uL (0.0-1.1); MONO % 6 % (0-9); NEUT # 4.3 x10^3/uL (1.8-7.7); NEUT % 71 % (31-73); PLATELET COUNT 192 x10^3/uL (140-400); RED BLOOD COUNT 4.12 x10^6/uL (3.50-5.40); RED CELL DISTRIBUTION WIDTH 15.4 % (11.5-14.5); WHITE BLOOD COUNT 6.1 x10^3/uL (4.0-11.0)
[2019-04-27] MEDS ORDERED: ONDANSETRON PF 4 MG/2 ML VIAL. IV ONE (15:30)
[2019-04-27 15:44] LABS: CALCIUM 8.7 mg/dL (8.5-10.1); CREATININE 0.7 mg/dL (0.6-1.0); GFR 115.2; POTASSIUM 3.8 mmol/L (3.5-5.1)
[2019-04-27 15:47] LABS: BILIRUBIN,URINE NEGATIVE (NEG); CLARITY,URINE CLEAR; COLOR,URINE AMBER; NITRITE,URINE NEGATIVE (NEG); PROTEIN,URINE 30 mg/dL (NEG-TRACE); UROBILINOGEN,URINE 0.2 mg/dL (0.2 mg/dL)
[2019-04-27 15:50] LABS: ALBUMIN 3.5 g/dL (3.4-5.0); TOTAL BILIRUBIN 0.2 mg/dL (0.2-1.0)
[2019-04-27 15:55] LABS: BACTERIA,URINE 0 /HPF (0-FEW); RBC,URINE TNTC /HPF (0-2); WBC,URINE 0 /HPF (0-4)
--- NOTE | 2019-04-27 16:46 | RAD ---
Pelvic sonography Clinical indications: Heavy vaginal bleeding. FINDINGS: Uterus is anteverted in position. The longitudinal and AP and transverse dimensions of the uterus are 8.3 cm and 4.2 cm and 5.1 cm respectively. The endometrial canal measures 6 mm in thickness which is normal. No uterine mass or fibroid is evident. The right ovary measures 2.8 cm and 1.3 cm and 2.2 cm in size and is normal. Color Doppler flow is seen within the right ovary. The left ovary measures 2.4 cm and 3.0 cm and 1.9 cm in size and is normal. Color Doppler flow is seen within left ovary. No adnexal mass or free fluid is evident. IMPRESSION: Unremarkable pelvic sonogram. Electronically signed by: Sal Mays MD (04/27/2019 4:43 PM) [facility]
--- NOTE | 2019-04-27 16:57 | PHYS DOC ---
Past Medical History Past Medical History: Anxiety, Asthma, Other Additional Past Medical Histor: gall bladder removed, c section x2. Past Surgical History: Cholecystectomy, Additional Past Surgical Histo: open heart, Alcohol Use: Occasionally Drug Use: None Adult General Chief Complaint Chief Complaint: DIZZY/LIGHT HEADED HPI HPI Patient is a 33-year-old female who presents with complaint of heavy menstrual cycles for quite some time now. Patient states that at time she gets dizzy and states that she goes quite a number of tampons and pads during each menstrual cycle. Patient is wondering if she needs to have a hysterectomy and is worried that she is getting anemic. She does complain of some abdominal cramping associated with her menstrual cycles as well. Currently she denies any pain but does admit to some lightheadedness.[] Review of Systems Review of Systems Constitutional: Denies fever or chills [] Respiratory: Denies cough or shortness of breath [] Cardiovascular: No additional information not addressed in HPI [] GI: Admits to lower abdominal cramping without vomiting or diarrhea [] : Denies dysuria or hematuria. Admits to heavy vaginal bleeding. All other systems were reviewed and found to be within normal limits, except as documented in this note. Current Medications Current Medications Current Medications Medications (Trade) Dose Ordered Sig/Kareen Start Time Stop Time Status Last Admin Dose Admin Ondansetron HCl (Zofran) 4 mg 1X ONCE 04/27/19 15:30 04/27/19 15:31 DC 04/27/19 15:07 4 MG Sodium Chloride 1,000 ml @ 1,000 mls/hr Q1H 04/27/19 15:20 04/27/19 16:19 DC 04/27/19 15:00 1,000 MLS/HR Allergies Allergies Allergies Coded Allergies Type Severity Reaction Last Updated Verified cefaclor Allergy Intermediate hives 11/08/18 Yes prochlorperazine edisylate Adverse Reaction Intermediate panic attack 11/08/18 Yes prochlorperazine maleate Adverse Reaction Intermediate panic attack 11/08/18 Yes Physical Exam Physical Exam Constitutional: Well developed, well nourished, no acute distress, non-toxic appearance. [] HENT: Normocephalic, atraumatic, bilateral external ears normal, oropharynx moist, no oral exudates, nose normal. [] Eyes: PERRLA, EOMI, conjunctiva normal, no discharge. [] Neck: Normal range of motion, no tenderness, supple, no stridor. [] Cardiovascular:Heart rate regular rhythm, no murmur [] Lungs & Thorax: Bilateral breath sounds clear to auscultation [] Abdomen: Bowel sounds normal, soft, no tenderness. [] Skin: Warm, dry, no erythema, no rash. [] Extremities: No tenderness, no cyanosis, no clubbing, ROM intact, no edema. [] Neurologic: Alert and oriented X 3, no focal deficits noted. [] Current Patient Data Vital Signs Vital Signs Date Time Temp Pulse Resp B/P (MAP) Pulse Ox O2 Delivery O2 Flow Rate FiO2 04/27/19 14:42 98.1 64 18 128/60 (82) 99 Room Air 98.1 Lab Values Laboratory Tests Test 04/27/19 14:52 04/27/19 15:03 04/27/19 15:39 White Blood Count 6.1 x10^3/uL (4.0-11.0) Red Blood Count 4.12 x10^6/uL (3.50-5.40) Hemoglobin 11.1 g/dL (12.0-15.5) L Hematocrit 34.6 % (36.0-47.0) L Mean Corpuscular Volume 84 fL (79-100) Mean Corpuscular Hemoglobin 27 pg (25-35) Mean Corpuscular Hemoglobin Concent 32 g/dL (31-37) Red Cell Distribution Width 15.4 % (11.5-14.5) H Platelet Count 192 x10^3/uL (140-400) Neutrophils (%) (Auto) 71 % (31-73) Lymphocytes (%) (Auto) 21 % (24-48) L Monocytes (%) (Auto) 6 % (0-9) Eosinophils (%) (Auto) 1 % (0-3) Basophils (%) (Auto) 1 % (0-3) Neutrophils # (Auto) 4.3 x10^3/uL (1.8-7.7) Lymphocytes # (Auto) 1.3 x10^3/uL (1.0-4.8) Monocytes # (Auto) 0.4 x10^3/uL (0.0-1.1) Eosinophils # (Auto) 0.1 x10^3/uL (0.0-0.7) Basophils # (Auto) 0.0 x10^3/uL (0.0-0.2) Sodium Level 142 mmol/L (136-145) Potassium Level 3.8 mmol/L (3.5-5.1) Chloride Level 107 mmol/L (98-107) Carbon Dioxide Level 30 mmol/L (21-32) Anion Gap 5 (6-14) L Blood Urea Nitrogen 11 mg/dL (7-20) Creatinine 0.7 mg/dL (0.6-1.0) Estimated GFR (Cockcroft-Gault) 115.2 BUN/Creatinine Ratio 16 (6-20) Glucose Level 102 mg/dL (70-99) H Calcium Level 8.7 mg/dL (8.5-10.1) Total Bilirubin 0.2 mg/dL (0.2-1.0) Aspartate Amino Transferase (AST) 14 U/L (15-37) L Alanine Aminotransferase (ALT) 18 U/L (14-59) Alkaline Phosphatase 51 U/L (46-116) Total Protein 7.0 g/dL (6.4-8.2) Albumin 3.5 g/dL (3.4-5.0) Albumin/Globulin Ratio 1.0 (1.0-1.7) Urine Collection Type Unknown Urine Color Elaine Urine Clarity Clear Urine pH 6.0 Urine Specific [place] >=1.030 Urine Protein 30 mg/dL (NEG-TRACE) Urine Glucose (UA) Negative mg/dL (NEG) Urine Ketones (Stick) Negative mg/dL (NEG) Urine Blood Large (NEG) Urine Nitrite Negative (NEG) Urine Bilirubin Negative (NEG) Urine Urobilinogen Dipstick 0.2 mg/dL (0.2 mg/dL) Urine Leukocyte Esterase Negative (NEG) Urine RBC Tntc /HPF (0-2) Urine WBC 0 /HPF (0-4) Urine Bacteria 0 /HPF (0-FEW) Urine Mucus Marked /LPF POC Urine HCG, Qualitative Hcg negative (Negative) Laboratory Tests 04/27/19 14:52 Laboratory Tests 04/27/19 14:52 EKG EKG [] Radiology/Procedures Radiology/Procedures [] Impressions: PROCEDURE: PELVIS ULTRASOUND Pelvic sonography Clinical indications: Heavy vaginal bleeding. FINDINGS: Uterus is anteverted in position. The longitudinal and AP and transverse dimensions of the uterus are 8.3 cm and 4.2 cm and 5.1 cm respectively. The endometrial canal measures 6 mm in thickness which is normal. No uterine mass or fibroid is evident. The right ovary measures 2.8 cm and 1.3 cm and 2.2 cm in size and is normal. Color Doppler flow is seen within the right ovary. The left ovary measures 2.4 cm and 3.0 cm and 1.9 cm in size and is normal. Color Doppler flow is seen within left ovary. No adnexal mass or free fluid is evident. IMPRESSION: Unremarkable pelvic sonogram. Electronically signed by: Antelmo Mays MD (04/27/2019 4:43 PM) [facility] DICTATED and SIGNED BY: ANTELMO MAYS MD DATE: 04/27/19 350 Course & Med Decision Making Course & Med Decision Making Pertinent Labs and Imaging studies reviewed. (See chart for details) [] Dragon Disclaimer Dragon Disclaimer This electronic medical record was generated, in whole or in part, using a voice recognition dictation system. Departure Departure Impression: Primary Impression: Menorrhagia Disposition: HOME, SELF-CARE Condition: STABLE Referrals: MARY LOU TRORES APRN (PCP) Patient Instructions: Menorrhagia Problem Qualifiers Primary Impression: Menorrhagia Menorrahagia type: with regular cycle Qualified Codes: N92.0 - Excessive and frequent menstruation with regular cycle KELLY LUU Jr. DO Apr 27, 2019 16:57
[2019-04-27 17:20] VITALS: BP 120/58
--- NOTE | 2019-04-28 11:29 | EKG ---
[facility] [address] [place] [address] Test Date: 2019-04-27 Test Time: 15:45:18 Pat Name: PETEY ALBA Department: Room: Gender: F Cap Inspector: : 1985 Requested By: KELLY LUU Order Number: [id number] Reading MD: Joel Burch MD Measurements Intervals [place] Rate: 55 P: -103 MO: 132 QRS: 8 QRSD: 84 T: 17 QT: 442 QTc: 425 Interpretive Statements ECTOPIC ATRIAL RHYTHM Electronically Signed On 05-07-2019 10:25:03 CDT by Joel Burch MD
== END 2019-04-27 17:27 | disposition home or self-care (01) ==
LOC: ER 13:59
DX: N92.0 Excessive and frequent menstruation with regular cycle (principal); R42 Dizziness and giddiness; R10.30 Lower abdominal pain, unspecified; J45.909 Unspecified asthma, uncomplicated; F41.9 Anxiety disorder, unspecified; Z90.49 Acquired absence of other specified parts of digestive tract; Z98.890 Other specified postprocedural states; Z88.1 Allergy status to other antibiotic agents; Z88.8 Allergy status to other drugs, medicaments and biological substances
CPT/HCPCS: 36415; 76856; 80053; 81001; 81025; 85025; 93005; 96361; 96374; 99285; J2405; J7030

== ENCOUNTER 2019-06-16 22:15 | Emergency (ER) | payer OTHER ==
[~2019-06-16] VITALS: Ht 157.5 cm; Wt 122.0 kg
[2019-06-16] MEDS ORDERED: MORPHINE SULFATE 10 MG/ML VIAL. IM STA (23:10)
[2019-06-16] MEDS ORDERED: ONDANSETRON ODT 4 MG TAB.RAPDIS. PO STA (23:10)
[2019-06-16] MEDS ORDERED: KETOROLAC TROMETHAMINE 10 MG TABLET PO ONE (23:15)
--- NOTE | 2019-06-16 23:26 | PHYS DOC ---
Past Medical History Past Medical History: Anxiety, Asthma, Other Additional Past Medical Histor: gall bladder removed, c section x2. Past Surgical History: Cholecystectomy, Additional Past Surgical Histo: open heart, Alcohol Use: Occasionally Drug Use: None Adult General Chief Complaint Chief Complaint: LOWER EXT PAIN HPI HPI Patient is a 33 year old female who presents with left knee pain has been on going for 3 days. Patient states she was singing in nature requiring her knee started hurting. States the knee has been swollen and painful. She states that she does not really remember what happened but she does not remember twisting and hurting the knee. Review of Systems Review of Systems Constitutional: Denies fever or chills [] Eyes: Denies change in visual acuity, redness, or eye pain [] HENT: Denies nasal congestion or sore throat [] Respiratory: Denies cough or shortness of breath [] Cardiovascular: No additional information not addressed in HPI [] GI: Denies abdominal pain, nausea, vomiting, bloody stools or diarrhea [] : Denies dysuria or hematuria [] Musculoskeletal: Reports L knee pain. Integument: Denies rash or skin lesions [] Neurologic: Denies headache, focal weakness or sensory changes [] Endocrine: Denies polyuria or polydipsia [] Complete systems were reviewed and found to be within normal limits, except as documented in this note. Current Medications Current Medications Current Medications Medications (Trade) Dose Ordered Sig/Kareen Start Time Stop Time Status Last Admin Dose Admin Ketorolac Tromethamine (Toradol) 10 mg 1X ONCE 06/16/19 23:15 06/16/19 23:16 DC 06/16/19 23:28 10 MG Morphine Sulfate (Morphine Sulfate) 10 mg 1X STAT 06/16/19 23:10 06/16/19 23:16 DC 06/16/19 23:26 10 MG Ondansetron HCl (Zofran Odt) 4 mg 1X STAT 06/16/19 23:10 06/16/19 23:15 DC 06/16/19 23:26 4 MG Allergies Allergies Allergies Coded Allergies Type Severity Reaction Last Updated Verified cefaclor Allergy Intermediate hives 11/08/18 Yes prochlorperazine edisylate Adverse Reaction Intermediate panic attack 11/08/18 Yes prochlorperazine maleate Adverse Reaction Intermediate panic attack 11/08/18 Yes Physical Exam Physical Exam Constitutional: Well developed, well nourished, no acute distress, non-toxic appearance. [] HENT: Normocephalic, atraumatic, bilateral external ears normal, oropharynx m oist, no oral exudates, nose normal. [] Eyes: PERRLA, EOMI, conjunctiva normal, no discharge. [] Neck: Normal range of motion, no tenderness, supple, no stridor. [] Cardiovascular:Heart rate regular rhythm, no murmur [] Lungs & Thorax: Bilateral breath sounds clear to auscultation [] Abdomen: Bowel sounds normal, soft, no tenderness, no masses, no pulsatile masses. [] Skin: Warm, dry, no erythema, no rash. [] Back: No tenderness, no CVA tenderness. [] Extremities: Tenderness to L knee with moderate edema. + anterior drawer. Neurologic: Alert and oriented X 3, normal motor function, normal sensory function, no focal deficits noted. [] Psychologic: Affect normal, judgement normal, mood normal. [] Current Patient Data Vital Signs Vital Signs Date Time Temp Pulse Resp B/P (MAP) Pulse Ox O2 Delivery O2 Flow Rate FiO2 06/16/19 23:26 14 98 EKG EKG [] Radiology/Procedures Radiology/Procedures X-ray to L knee interpreted by Dr. Gonzalez No acute obvious abnormality to knee. Course & Med Decision Making Course & Med Decision Making Pertinent Labs and Imaging studies reviewed. (See chart for details) Will get L knee x-ray. Will also give supportive care. Imaging is negative. Will place in knee brace and give crutches. Will recommend RICE. Will also d/c with [employer]. Dragon Disclaimer Dragon Disclaimer This electronic medical record was generated, in whole or in part, using a voice recognition dictation system. Departure Departure Impression: Primary Impression: Knee pain, left Disposition: 01 HOME, SELF-CARE Condition: STABLE Referrals: MARY LOU TORRES APRN (PCP) Patient Instructions: RICE - Routine Care for Injuries Additional Instructions: Thank you for visiting [facility]. We appreciate you trusting us with your care. If any additional problems come up don't hesitate to return to visit us. Please follow up with your primary care provider so they can plan additional care if needed and know about the problem that you had. If symptoms worsen come back to the Emergency Department. Any concerning symptoms that start such as chest pain, shortness of air, weakness or numbness on one side of the body, running high fevers or any other concerning symptoms return to the ER. Please fill your medications at any pharmacy and follow the prescription instructions. Scripts Hydrocodone/Apap 5-325 (NORCO 5-325 TABLET) 1 Each Tablet 1 TAB PO PRN Q6HRS PRN for PAIN for 3 Days, #12 TAB 0 Refills Prov: VIRGINIE SORTO APRN 06/17/19 Problem Qualifiers Primary Impression: Knee pain, left Chronicity: acute Qualified Codes: M25.562 - Pain in left knee VIRGINIE SORTO APRN Jun 16, 2019 23:26
[2019-06-17] MEDS ORDERED: HYDR-3164 PO (00:05)
[2019-06-17 01:23] VITALS: BP 148/88
--- NOTE | 2019-06-17 01:26 | RAD ---
Indication:Tenderness, edema. TECHNIQUE: 3 views of the left knee COMPARISON:None FINDINGS/ impression: No acute fracture or dislocation. Mild tricompartmental osteoarthritis. Trace suprapatellar effusion. Electronically signed by: Graeme Chávez DO (06/17/2019 1:24 AM) [id number]
== END 2019-06-17 00:35 | disposition home or self-care (01) ==
LOC: ER 22:15
DX: M25.562 Pain in left knee (principal); R60.0 Localized edema; F41.9 Anxiety disorder, unspecified; J45.909 Unspecified asthma, uncomplicated; Z90.49 Acquired absence of other specified parts of digestive tract; Z98.890 Other specified postprocedural states; Z88.8 Allergy status to other drugs, medicaments and biological substances
CPT/HCPCS: 73562; 96372; 99284; J2270; Q0162

== ENCOUNTER → 2019-06-26 | Outpatient (CLI) | payer OTHER ==
[2019-06-17 01:23] VITALS: BP 148/88
[~2019-06-26] MED LIST changes: +HYDR-3164 PO
--- NOTE | 2019-06-26 12:43 | KCIC ---
MR of the left knee HISTORY: Left knee pain for 1.5 weeks. Anterior numbness. Popping and clicking. TECHNIQUE: Routine multiple planar sequences are obtained. FINDINGS: Mild motion degradation. Mild distortion of the medial meniscus without clear-cut tear. Medial subluxation of the meniscus. No evidence of lateral meniscal tear. Anterior and posterior cruciate ligaments are intact. Medial collateral ligament is intact. Iliotibial band unremarkable. Fibular collateral ligament, biceps femoris tendon and popliteus tendon are intact. Extensor mechanism is intact. No acute retinacular rupture. Large joint effusion. 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 Mild chondromalacia at the medial joint compartment. Mild chondromalacia at the lateral tibial plateau posteriorly. No evidence of acute fracture. No aggressive bone destruction. No significant De's cyst. IMPRESSION: 1. Medial meniscal distortion without clear-cut tear. 2. DJD greatest at the patellofemoral joint compartment. 3. Large joint effusion. Electronically signed by: Luis Lay MD (06/26/2019 12:40 PM) [facility]
== END | disposition home or self-care (01) ==
LOC: KCIC MRI 08:52
PROVIDERS: ATTEND Nurse Practitioner Family
DX: S83.242A Other tear of medial meniscus, current injury, left knee, initial encounter (principal); M25.462 Effusion, left knee; M94.262 Chondromalacia, left knee; M17.12 Unilateral primary osteoarthritis, left knee; X58.XXXA Exposure to other specified factors, initial encounter; Y93.89 Activity, other specified; Y92.89 Other specified places as the place of occurrence of the external cause; Y99.8 Other external cause status
CPT/HCPCS: 73721

== ENCOUNTER 2019-07-26 07:12 | Emergency (ER) | payer OTHER ==
[~2019-07-26] VITALS: Ht 160 cm; Wt 125.2 kg
[2019-07-26 07:33] VITALS: BP 110/57
--- NOTE | 2019-07-26 08:15 | RAD ---
EXAM: CHEST 2 VIEWS. HISTORY: Shortness of breath, congestion, cough. COMPARISON: 11/07/2018. FINDINGS: Frontal and lateral views of the chest are obtained. There are no confluent infiltrates. There is a calcified granuloma on the left. There is no pneumothorax or pleural effusion. The heart is mildly enlarged. Cholecystectomy clips are noted. IMPRESSION: 1. Mild cardiomegaly. Electronically signed by: Luis Shetty MD (07/26/2019 8:12 AM) [facility]
[2019-07-26] MEDS ORDERED: PROM5SYR2 PO (08:24)
[2019-07-26] MEDS ORDERED: PRED50TA PO (08:24)
[2019-07-26] MEDS ORDERED: CEPH-264 PO (08:24)
--- NOTE | 2019-07-26 08:24 | PHYS DOC ---
Past Medical History Past Medical History: Anxiety, Asthma, Other Additional Past Medical Histor: gall bladder removed, c section x2. Past Surgical History: Cholecystectomy, Additional Past Surgical Histo: open heart "when i was a baby" Alcohol Use: Occasionally Drug Use: None Adult General Chief Complaint Chief Complaint: Congestion HPI HPI Patient is a 33 year old AA female with h/o asthma who presents with runny aches, fevers chills, sweats, productive cough with chest wall pain the past several days. Reports chest wall pain with cough. Patient is taking Claritin, pseudoephedrine, ibuprofen with limited relief. She is also been using a rescue inhaler. [] Review of Systems Review of Systems ROS as per HPI All other systems were reviewed and found to be within normal limits, except as documented in this note. Allergies Allergies Allergies Coded Allergies Type Severity Reaction Last Updated Verified cefaclor Allergy Intermediate hives 11/08/18 Yes prochlorperazine edisylate Adverse Reaction Intermediate panic attack 11/08/18 Yes prochlorperazine maleate Adverse Reaction Intermediate panic attack 11/08/18 Yes Physical Exam Physical Exam Constitutional: Well developed, well nourished, no acute distress, non-toxic appearance. [] HENT: Normocephalic, atraumatic, bilateral external ears normal, oropharynx moist, nose congestion, . [] Eyes: PERRL, EOMI, conjunctiva normal. [] Neck: Normal range of motion, no tenderness. [] Cardiovascular:Heart rate regular rhythm, no murmur [] Lungs & Thorax: Bilateral breath sounds clear to auscultation [] Abdomen: Bowel sounds normal, soft, no tenderness. [] Skin: Warm, dry, no erythema. [] Back: No tenderness. [] Extremities: No tenderness, no edema. [] Neurologic: Alert and oriented X 3, normal motor function, normal sensory function, no focal deficits noted. [] Psychologic: Affect normal, judgement normal, mood normal. [] Current Patient Data Vital Signs Vital Signs Date Time Temp Pulse Resp B/P (MAP) Pulse Ox O2 Delivery O2 Flow Rate FiO2 07/26/19 07:33 98.7 86 16 110/57 (74) 99 Room Air 98.7 EKG EKG [] Radiology/Procedures Radiology/Procedures [] Course & Med Decision Making Course & Med Decision Making Pertinent Labs and Imaging studies reviewed. (See chart for details) Chest x-ray: Mild cardiology per radiology report] Agustín Disclaimer Dragon Disclaimer This electronic medical record was generated, in whole or in part, using a voice recognition dictation system. Departure Departure Impression: Primary Impression: Influenza Additional Impression: Asthma exacerbation Disposition: HOME, SELF-CARE Condition: GOOD Referrals: MARY LOU TORRES APRN (PCP) Patient Instructions: Asthma, Acute Bronchospasm, Influenza Virus Vaccine injection (Fluarix) Additional Instructions: Please continue pseudoephedrine, ibuprofen and use of urine albuterol inhaler. Take newly prescribed medications as directed. Follow-up with PCP for reevaluation in 3-5 days. Scripts Promethazine HCl/Codeine (Prometh-Codein 6.25-10 mg/5 ml) 5 Ml Syrup 5 ML PO PRN Q4-6HRS PRN for cough MDD 30 Milliliter(s), #120 ML 0 Refills Prov: IBIS OLIVO DO 07/26/19 Prednisone (PREDNISONE) 50 Mg Tablet 1 TAB PO DAILY, #5 TAB Prov: IBIS OLIVO DO 07/26/19 Cephalexin (KEFLEX) 500 Mg Capsule 1 CAP PO TID for 7 Days, #21 CAP 0 Refills Prov: IBIS OLIVO DO 07/26/19 Problem Qualifiers IBIS OLIVO DO Jul 26, 2019 08:24
== END 2019-07-26 08:30 | disposition home or self-care (01) ==
LOC: ER 07:12
DX: J11.1 Influenza due to unidentified influenza virus with other respiratory manifestations (principal); J45.901 Unspecified asthma with (acute) exacerbation; F41.9 Anxiety disorder, unspecified; Z90.89 Acquired absence of other organs; Z90.49 Acquired absence of other specified parts of digestive tract; Z98.890 Other specified postprocedural states; Z88.8 Allergy status to other drugs, medicaments and biological substances; Z88.1 Allergy status to other antibiotic agents
CPT/HCPCS: 71046; 99284

== ENCOUNTER → 2020-06-19 | Outpatient (CLI) | payer MEDICAID ==
[~2020-06-19] MED LIST changes: +CEPH-264 PO; +MAGN296S68 PO; -MAGN296S9 PO; +MECL-75 PO; -MECL25TA3 PO; +PROM5SYR2 PO
--- NOTE | 2020-06-19 12:50 | KCIC ---
EXAM: KNEE STANDING BILAT AP. HISTORY: Knee pain, degenerative joint disease. COMPARISON: None. FINDINGS: There is moderate osteophytosis along the medial and lateral compartments of the right knee. There are small osteophytes along the left medial compartment. The joint spaces and alignment of both knees are maintained. No fractures are identified. IMPRESSION: 1. Mild osteoarthritis on the right greater than left. Electronically signed by: Luis Shetty MD (06/19/2020 12:47 PM) [id number]
== END ==
LOC: KCIC 11:44
PROVIDERS: ATTEND Physical Medicine & Rehabilitation
DX: M17.0 Bilateral primary osteoarthritis of knee (principal); M25.762 Osteophyte, left knee; M25.761 Osteophyte, right knee
CPT/HCPCS: 73565

== ENCOUNTER → 2020-06-19 | Outpatient (CLI) | payer MEDICAID ==
--- NOTE | 2020-06-19 13:14 | KCIC ---
AP and Lateral Views of the Chest 06/19/2020 12:00 AM Indication: Reason: Hx pneumonia 06/11/20, has been on meds. / Spl. Instructions: / History: Comparison: Chest radiograph July 26, 2019 Findings: Decreased inspiratory volumes are noted. No pneumothorax or effusion is seen. There is a rounded fullness in the right hilum which may represent adenopathy. A mass is considered less likely but not excluded. Enlargement of the posterior medial eighth rib is possible Contrast-enhanced CT chest recommended. No acute osseous changes are identified. IMPRESSION: 1. Rounded right hilar opacity. Differential considerations include adenopathy, mass, or rib enlargement. CT chest with contrast recommended 2. No other acute cardiopulmonary process is identified Electronically signed by: Zak Quiñonez MD (06/19/2020 1:12 PM) [id number]
== END ==
LOC: KCIC 11:37
PROVIDERS: ATTEND Nurse Practitioner Family
DX: J18.9 Pneumonia, unspecified organism (principal)
CPT/HCPCS: 71046

== ENCOUNTER 2020-06-23 08:33 | Emergency (ER) | payer MEDICAID ==
[~2020-06-23] VITALS: Ht 157.5 cm; Wt 122.0 kg
--- NOTE | 2020-06-23 09:39 | RAD ---
INDICATION: Reason: SOA, DIAGNOSED WITH PNEUMONIA EARLIER THIS MONTH / Spl. Instructions: / History: COMPARISON: June 19, 2020 FINDINGS: Single view of chest obtained. Enlarged cardiomediastinal silhouette. Hypoexpanded exam without a definite focal airspace consolidation. IMPRESSION: * Enlarged cardiomediastinal Silhouette which can be seen with cardiomegaly and/or pericardial effusion. This appears increased. Electronically signed by: Andrés Buckner MD (06/23/2020 9:36 AM) [id number]
--- NOTE | 2020-06-23 09:52 | PHYS DOC ---
Past Medical History Past Medical History: Anxiety, Asthma, Other Additional Past Medical Histor: gall bladder removed, c section x2. Past Surgical History: Cholecystectomy, Additional Past Surgical Histo: open heart "when i was a baby" Smoking Status: Never Smoker Alcohol Use: Occasionally Drug Use: None General Adult EDM: Chief Complaint: SHORTNESS OF BREATH HPI: HPI: Patient is a 34 year old female who presented to ER for evaluation of cough trouble breathing for about 2 weeks. Patient was evaluated at [facility] ER, diagnosed with pneumonia. Patient was given 5 days of Levaquin. Patient was tested negative for COVID-19 as well. Patient says she took the medication but did not get any better. Patient complained of trouble breathing with exertion, also having chest pain. Patient says she had some fever and chill yesterday. Review of Systems: Review of Systems: Constitutional: Denies fever or chills. [] Eyes: Denies change in visual acuity. [] HENT: Denies nasal congestion or sore throat. [] Respiratory: Positive for cough and shortness of breath. [] Cardiovascular: Positive for chest pain ,no edema. [] GI: Denies abdominal pain, nausea, vomiting, bloody stools or diarrhea. [] : Denies dysuria. [] Musculoskeletal: Denies back pain or joint pain. [] Integument: Denies rash. [] Neurologic: Denies headache, focal weakness or sensory changes. [] Endocrine: Denies polyuria or polydipsia. [] Lymphatic: Denies swollen glands. [] Psychiatric: Denies depression or anxiety. [] Heart Score: Risk Factors: Risk Factors: DM, Current or recent (<one month) smoker, HTN, HLP, family history of CAD, obesity. Risk Scores: Score 0 - 3: 2.5% MACE over next 6 weeks - Discharge Home Score 4 - 6: 20.3% MACE over next 6 weeks - Admit for Clinical Observation Score 7 - 10: 72.7% MACE over next 6 weeks - Early Invasive Strategies Allergies: Allergies: Allergies Coded Allergies Type Severity Reaction Last Updated Verified cefaclor Allergy Intermediate hives 11/08/18 Yes prochlorperazine edisylate Adverse Reaction Intermediate panic attack 11/08/18 Yes prochlorperazine maleate Adverse Reaction Intermediate panic attack 11/08/18 Yes Physical Exam: PE: Constitutional: Well developed, well nourished, no acute distress, non-toxic appearance. [] HENT: Normocephalic, atraumatic, bilateral external ears normal, oropharynx moist, no oral exudates, nose normal. [] Eyes: PERRLA, EOMI, conjunctiva normal, no discharge. [] Neck: Normal range of motion, no tenderness, supple, no stridor. [] Cardiovascular:Heart rate regular rhythm, no murmur [] Lungs & Thorax: Bilateral breath sounds clear to auscultation [] Abdomen: Bowel sounds normal, soft, no tenderness, no masses, no pulsatile masses. [] Skin: Warm, dry, no erythema, no rash. [] Back: No tenderness, no CVA tenderness. [] Extremities: No tenderness, no cyanosis, no clubbing, ROM intact, no edema. [] Neurologic: Alert and oriented X 3, normal motor function, normal sensory function, no focal deficits noted. [] Psychologic: Affect normal, judgement normal, mood normal. [] Current Patient Data: Vital Signs: Vital Signs Date Time Temp Pulse Resp B/P (MAP) Pulse Ox O2 Delivery O2 Flow Rate FiO2 06/23/20 09:11 98.1 99 20 111/58 (75) 99 Room Air 98.1 EKG: EKG: EKG was done 913, heart rate of 68 beats per minutes, sinus rhythm, no ST segment elevation Radiology/Procedures: Radiology/Procedures: [][facility] [address] [place], [place] [id number] IMAGING REPORT Signed PATIENT: PETEY ALBA ACCOUNT: [id number] : 1985 LOCATION: ER AGE: 34 SEX: F EXAM STATUS: REG ER ORD. PHYSICIAN: RAIMUNDO LEDESMA DO REASON: chest pain, shortness of air for two weeks PROCEDURE: CT ANGIOGRAPHY CHEST Examination: CT angiography chest with IV contrast HISTORY: History of chest pain, shortness of breath COMPARISON: 08/01/2018 TECHNIQUE: Axial CT images of the chest were performed with IV contrast. Coronal and sagittal 3-D MIP reformats are performed. Exposure: One or more of the following individualized dose reduction techniques were utilized for this examination: 1. Automated exposure control 2. Adjustment of the mA and/or kV according to patient size 3. Use of iterative reconstruction technique FINDINGS: The central airways are patent. The heart size grossly appears unremarkable. The caliber of the aorta grossly appears unremarkable. No evidence of filling defect identified in the main pulmonary arterial trunk and left main pulmonary arteries. Small calcified granuloma left upper lobe of the lung, otherwise the lungs are clear. Mild decreased attenuation noted in the liver likely steatosis. There is a 9 mm enhancing density identified in the right lobe of the liver, uncertain etiology. The spleen, adrenals grossly appears unremarkable. Mild degenerative changes thoracic spine. IMPRESSION: 1. No evidence of pulmonary embolism. 2. The lungs are clear. ' 3. Mild hepatic steatosis with a tiny 9 mm enhancing density in the right lobe of the liver, difficult contrast could be a hemangioma. Electronically signed by: Lamont Pérez MD (06/23/2020 11:21 AM) [id number] DICTATED and SIGNED BY: LAMONT PÉREZ MD DATE: 06/23/20 [id number] 0 Course & Med Decision Making: Course & Med Decision Making Pertinent Labs and Imaging studies reviewed. (See chart for details) Patient is a 34-year-old female who presents presented to ER with trouble breathing and cough for 2 weeks. Her vital signs stable here, CT chest did not show any blood clot or infiltration. She has been tested for COVID-19 infection. Patient will be discharged home she will need to follow-up with her family physician for reevaluation. Agustín Disclaimer: Agustín Disclaimer: This electronic medical record was generated, in whole or in part, using a voice recognition dictation system. Departure Departure Impression: Primary Impression: Bronchitis Additional Impression: Person under investigation for COVID-19 Disposition: 01 DC HOME SELF CARE/HOMELESS Condition: STABLE Referrals: MARY LOU TORRES APRN (PCP) please follow up with your doctor as needed. Patient Instructions: Acute Bronchitis Additional Instructions: You have been tested for or diagnosed with COVID-19. It is an infection caused by a new type of coronavirus. COVID-19 will cause cold-like or mild flu symptoms in most. It can cause more severe symptoms like problems breathing in some. There is no treatment for COVID-19. The body will clear the infection over time. Self-care will help to ease discomfort. Steps to Take: Self-Care Rest as needed. Healthy habits may help you feel better. Steps include: Choose healthy foods including fruits and vegetables. Drink water throughout the day. Get plenty of sleep each night. If you smoke, try to quit. It may ease breathing. Avoid alcohol. Keep Others Healthy The virus can spread to others. Droplets are released every time you sneeze or cough. The droplets can get into the mouth, nose, or eyes of people near you and lead to infection. To lower the chances of spreading COVID-19 to others: Stay at home until your doctor has said it is safe to leave. If you tested positive this will mean staying isolated until both of the following are true: At least 7 days have passed since the start of illness. You are free of fever for at least 72 hours without the use of medicine. During this time: - Avoid public areas, events, or transportation. Do not return to work or school until your doctor has said it is safe to do so. - Call ahead if you need to go to a medical center. Let them know you may have COVID-19. It will help them guide you where to go. They may also ask you to wear a facemask when you come to the office. - If you call for emergency medical services, let them know you may have COVID- 19. While at home: - Try to avoid close contact with others. Stay about 6 feet away. - If possible, spend most of your time in a separate room from others. - Use a face mask if you will be in close contact with others such as sharing a room or vehicle. - Have someone wipe down common surfaces in the home. Use household facial operator every day on areas like doorknobs, counters, or sinks. - Cough or sneeze into a tissue. Throw the tissue away right after use. If a tissue is not available, cough or sneeze into your elbow. - Wash your hands often. Wash them after sneezing or coughing. Use soap and water and wash for at least 20 seconds. Alcohol based hand distributor cleaner can be used if soap and water is not available. - Do not prepare food for others. Avoid sharing personal items like forks, spoons, or toothbrushes. - Avoid close contact with pets while you are sick. There is no evidence of the virus passing to pets. This is a safety step until more is known about this virus. Isolation can be frustrating. Social interaction can help. Keep in touch with friends and family through phone and tech options. You can still interact with others in your home, just keep a safe distance of about 6 feet. Follow-up: Your doctors office will check in with you to see if there are any changes in your health. You may be asked to keep track of symptoms to share with them. They will also let you know when you are clear to be in public again. Problems to Look Out For: Contact your doctor if your recovery is not going as you expect. Get emergency care if you have problems such as: - Trouble breathing - Nonstop chest pain or pressure - Changes in awareness, confusion, or problems waking - Lips or face have bluish color - Worsening of symptoms If you think you have an emergency, call for emergency medical services right away. As taken from [facility] Thank you for visiting our Emergency Department. We appreciate you trusting us with your care. If any additional problems come up don't hesitate to return to visit us. Please follow up with your primary care provider so they can plan additional care if needed and know about the problem that you had. If symptoms worsen come back to the Emergency Department. Any concerning symptoms that start such as chest pain, shortness of air, weakness or numbness on one side of the body, running high fevers or any other concerning symptoms return to the ER. RAIMUNDO LEDESMA DO Jun 23, 2020 09:52
[2020-06-23 10:23] LABS: BASO # 0.1 x10^3/uL (0.0-0.2); BASO % 1 % (0-3); EOS % 0 % (0-3); HEMATOCRIT 35.5 % (36.0-47.0); HEMOGLOBIN 11.4 g/dL (12.0-15.5); LYMPH # 3.5 x10^3/uL (1.0-4.8); LYMPH % 36 % (24-48); MEAN CORPUSCULAR HEMOGLOBIN 27 pg (25-35); MEAN CORPUSCULAR HGB CONC 32 g/dL (31-37); MEAN CORPUSCULAR VOLUME 83 fL (79-100); MONO # 0.6 x10^3/uL (0.0-1.1); MONO % 6 % (0-9); NEUT # 5.6 x10^3/uL (1.8-7.7); NEUT % 57 % (31-73); PLATELET COUNT 231 x10^3/uL (140-400); RED BLOOD COUNT 4.27 x10^6/uL (3.50-5.40); WHITE BLOOD COUNT 9.9 x10^3/uL (4.0-11.0)
[2020-06-23 10:34] LABS: CALCIUM 9.1 mg/dL (8.5-10.1); CREATININE 0.6 mg/dL (0.6-1.0); GFR 136.9; POTASSIUM 3.6 mmol/L (3.5-5.1)
[2020-06-23 10:40] LABS: ALBUMIN 3.5 g/dL (3.4-5.0); MAGNESIUM 1.9 mg/dL (1.8-2.4); TOTAL BILIRUBIN 0.2 mg/dL (0.2-1.0)
[2020-06-23] MEDS ORDERED: IOHEXOL 350 MG/ML 100 ML VIAL. IV ONE (11:00)
[2020-06-23] MEDS ORDERED: CONTRAST GIVEN. MC PRN (11:00)
--- NOTE | 2020-06-23 11:24 | RAD ---
Examination: CT angiography chest with IV contrast HISTORY: History of chest pain, shortness of breath COMPARISON: 08/01/2018 TECHNIQUE: Axial CT images of the chest were performed with IV contrast. Coronal and sagittal 3-D MIP reformats are performed. Exposure: One or more of the following individualized dose reduction techniques were utilized for this examination: 1. Automated exposure control 2. Adjustment of the mA and/or kV according to patient size 3. Use of iterative reconstruction technique FINDINGS: The central airways are patent. The heart size grossly appears unremarkable. The caliber of the aorta grossly appears unremarkable. No evidence of filling defect identified in the main pulmonary arterial trunk and left main pulmonary arteries. Small calcified granuloma left upper lobe of the lung, otherwise the lungs are clear. Mild decreased attenuation noted in the liver likely steatosis. There is a 9 mm enhancing density identified in the right lobe of the liver, uncertain etiology. The spleen, adrenals grossly appears unremarkable. Mild degenerative changes thoracic spine. IMPRESSION: 1. No evidence of pulmonary embolism. 2. The lungs are clear. ' 3. Mild hepatic steatosis with a tiny 9 mm enhancing density in the right lobe of the liver, difficult contrast could be a hemangioma. Electronically signed by: Lamont Pérez MD (06/23/2020 11:21 AM) [id number]
--- NOTE | 2020-06-23 11:30 | EKG ---
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
[2020-06-23 12:02] VITALS: BP 138/65
[2020-06-23 12:11] LABS: BILIRUBIN,URINE NEGATIVE (NEG); CLARITY,URINE CLEAR; COLOR,URINE YELLOW; NITRITE,URINE NEGATIVE (NEG); PH,URINE 6.5 (<5.0-8.0); PROTEIN,URINE NEGATIVE (NEG-TRACE); UROBILINOGEN,URINE 0.2 mg/dL (0.2 mg/dL)
[2020-06-23] MEDS ORDERED: ALBU0.63 NEB (12:11)
[2020-06-23] MEDS ORDERED: IPRA0.2S5 NEB (12:11)
[2020-06-23 12:29] LABS: BACTERIA,URINE 0 /HPF (0-FEW); RBC,URINE 0 /HPF (0-2); WBC,URINE 0 /HPF (0-4)
== END 2020-06-23 12:30 | disposition home or self-care (01) ==
LOC: ER 08:33
DX: J42 Unspecified chronic bronchitis (principal); Z20.828 Contact with and (suspected) exposure to other viral communicable diseases; R05 Cough; R07.89 Other chest pain; R50.9 Fever, unspecified; F41.9 Anxiety disorder, unspecified; J45.909 Unspecified asthma, uncomplicated; Z90.49 Acquired absence of other specified parts of digestive tract; Z98.890 Other specified postprocedural states; Z88.8 Allergy status to other drugs, medicaments and biological substances
CPT/HCPCS: 36415; 71045; 71275; 80053; 81001; 81025; 83735; 83880; 84484; 85025; 85379; 93005; 99285; C9803; Q9967; U0003

== ENCOUNTER 2020-08-17 18:13 | Emergency (ER) | payer MEDICAID ==
[~2020-08-17 18:13] MED LIST changes: +ALBU0.63 NEB; +IPRA0.2S5 NEB
== END 2020-08-17 19:00 | disposition left against medical advice (07) ==
LOC: ER 18:13
DX: R06.02 Shortness of breath (principal); Z53.21 Procedure and treatment not carried out due to patient leaving prior to being seen by health care provider

== ENCOUNTER 2020-09-04 23:21 | Emergency (ER) | payer MEDICAID ==
[~2020-09-04] VITALS: Ht 160 cm; Wt 122.0 kg
[2020-09-04 23:55] LABS: BASO % 1 % (0-3); EOS # 0.1 x10^3/uL (0.0-0.7); EOS % 2 % (0-3); HEMATOCRIT 35.1 % (36.0-47.0); HEMOGLOBIN 11.4 g/dL (12.0-15.5); LYMPH # 2.1 x10^3/uL (1.0-4.8); LYMPH % 35 % (24-48); MEAN CORPUSCULAR HEMOGLOBIN 27 pg (25-35); MEAN CORPUSCULAR HGB CONC 33 g/dL (31-37); MEAN CORPUSCULAR VOLUME 83 fL (79-100); MONO # 0.5 x10^3/uL (0.0-1.1); MONO % 8 % (0-9); NEUT # 3.2 x10^3/uL (1.8-7.7); NEUT % 54 % (31-73); PLATELET COUNT 268 x10^3/uL (140-400); RED BLOOD COUNT 4.22 x10^6/uL (3.50-5.40); RED CELL DISTRIBUTION WIDTH 15.1 % (11.5-14.5); WHITE BLOOD COUNT 5.9 x10^3/uL (4.0-11.0)
[2020-09-05 00:06] LABS: CALCIUM 8.7 mg/dL (8.5-10.1); CREATININE 0.8 mg/dL (0.6-1.0); GFR 98.2; POTASSIUM 4.3 mmol/L (3.5-5.1)
--- NOTE | 2020-09-05 00:09 | RAD ---
AP chest x-ray HISTORY: Palpitations. Chest pain shortness of breath. History of asthma. COMPARISON: CT chest June 23, 2020. FINDINGS: Heart size stable. Mediastinal silhouette is normal. Calcified granuloma left upper lobe. N o pneumothorax, pulmonary opacities or pleural effusions. Bones are unremarkable. IMPRESSION: No acute process. Electronically signed by: Siva Renee MD (09/05/2020 12:07 AM) [facility]
[2020-09-05 00:12] LABS: ALBUMIN 3.3 g/dL (3.4-5.0); TOTAL BILIRUBIN 0.1 mg/dL (0.2-1.0); TOTAL PROTEIN 6.6 g/dL (6.4-8.2)
[2020-09-05] MEDS ORDERED: diazePAM 5 MG TABLET PO ONE (00:30)
[2020-09-05 01:35] LABS: BILIRUBIN,URINE NEGATIVE (NEG); CLARITY,URINE CLEAR; COLOR,URINE YELLOW; NITRITE,URINE NEGATIVE (NEG); PROTEIN,URINE NEGATIVE (NEG-TRACE)
[2020-09-05 01:40] LABS: BARBITURATES NEG (NEG); BENZODIAZEPINES NEG (NEG); CANNABINOIDS NEG (NEG); COCAINE NEG (NEG); METHADONE NEG (NEG); OPIATES NEG (NEG); PHENCYCLIDINE NEG (NEG)
[2020-09-05 01:44] LABS: AMPHETAMINE/METHAMPHETAMINE NEG (NEG)
[2020-09-05 01:46] LABS: AMORPHOUS SEDIMENT,UR PRESENT /HPF; BACTERIA,URINE 0 /HPF (0-FEW)
--- NOTE | 2020-09-05 02:09 | PHYS DOC ---
Past Medical History Past Medical History: Anxiety, Asthma, Other Additional Past Medical Histor: gall bladder removed, c section x2. Past Surgical History: Cholecystectomy, Additional Past Surgical Histo: open heart "when i was a baby" Smoking Status: Never Smoker Alcohol Use: Occasionally Drug Use: None General Adult EDM: Chief Complaint: RAPID HEART RATE HPI: HPI: 34-year-old -[place] female past medical history significant for an xiety, depression and asthma, presents the ED with complaints of " my heart was racing and I felt in my throat," lasting for "minutes," with associated non- radiating left sided "chest pressure." Patient reports she did drink alcohol prior to sleep and this woke her up. Symptoms started around 11 PM. History of 3 negative Covid swabs in the past month (has not required hospitalization or prednisone for her asthma). Past surgical history of VSD repair in childhood. Grandmother with history of ACS. No family history of cardiac arrhythmias, aortic aneurysms or dissections, connective tissue disorders including Marfan's or Misty-Danlos, coagulopathy or hypercoagulable state, or sudden under the age of 50. Patient denies any methamphetamine or cocaine abuse. No diagnosed history of Covid. No associated unilateral edema, back pain, dyspnea or hemoptysis. Review of Systems: Review of Systems: Constitutional: Denies fever or chills. [] Eyes: Denies change in visual acuity. [] HENT: Denies nasal congestion or sore throat. [] Respiratory: Denies cough or shortness of breath. [] Cardiovascular: Denies syncope or edema. [] GI: Denies abdominal pain, nausea, vomiting, bloody stools or diarrhea. [] : Denies dysuria or flank pain Musculoskeletal: Denies back pain or joint pain. [] Integument: Denies rash or diaphoresis Neurologic: Denies headache, neck stiffness, focal weakness or sensory changes. [] Endocrine: Denies polyuria or polydipsia. [] Lymphatic: Denies swollen glands. [] Psychiatric: Denies depression or anxiety. [] Heart Score: HEART Score for Chest Pain: HEART Score for Chest Pain Response (Comments) Value History Slighlty/Non-Suspicious 0 ECG Normal 0 Age < 45 0 Risk Factors 1 or 2 Risk Factors 1 Troponin < Normal Limit 0 Total 1 Risk Factors: Risk Factors: DM, Current or recent (<one month) smoker, HTN, HLP, family history of CAD, obesity. Risk Scores: Score 0 - 3: 2.5% MACE over next 6 weeks - Discharge Home Score 4 - 6: 20.3% MACE over next 6 weeks - Admit for Clinical Observation Score 7 - 10: 72.7% MACE over next 6 weeks - Early Invasive Strategies Current Medications: Current Medications Medications (Trade) Dose Ordered Sig/Kareen Start Time Stop Time Status Last Admin Dose Admin Diazepam (Valium) 5 mg 1X ONCE 09/05/20 00:30 09/05/20 00:31 DC 09/05/20 01:18 5 MG Allergies: Allergies: Allergies Coded Allergies Type Severity Reaction Last Updated Verified cefaclor Allergy Intermediate hives 11/08/18 Yes prochlorperazine edisylate Adverse Reaction Intermediate panic attack 11/08/18 Yes prochlorperazine maleate Adverse Reaction Intermediate panic attack 11/08/18 Yes Physical Exam: PE: Constitutional: Well developed, well nourished, no acute distress, non-toxic appearance. HENT: Normocephalic, atraumatic, Eyes: EOMI, conjunctiva normal, no discharge. Neck: Normal range of motion, supple, Cardiovascular: S1/2 present, heart rate 100 bpm on arrival, Lungs & Thorax: Speaking in full sentences, bilateral equal chest rise, no tachypnea or increased work of breathing Abdomen: soft, no tenderness, Skin: Warm, dry, no erythema, no rash. [] Back: No tenderness, no CVA tenderness. [] Extremities: No tenderness, no cyanosis, no edema Neurologic: Alert and oriented X 3, normal motor function, normal sensory function, no focal deficits noted. [] Psychologic: Affect normal, judgement normal, mood normal. [] Current Patient Data: Labs: Laboratory Tests Test 09/04/20 23:44 09/05/20 01:19 09/05/20 01:24 White Blood Count 5.9 x10^3/uL (4.0-11.0) Red Blood Count 4.22 x10^6/uL (3.50-5.40) Hemoglobin 11.4 g/dL (12.0-15.5) L Hematocrit 35.1 % (36.0-47.0) L Mean Corpuscular Volume 83 fL (79-100) Mean Corpuscular Hemoglobin 27 pg (25-35) Mean Corpuscular Hemoglobin Concent 33 g/dL (31-37) Red Cell Distribution Width 15.1 % (11.5-14.5) H Platelet Count 268 x10^3/uL (140-400) Neutrophils (%) (Auto) 54 % (31-73) Lymphocytes (%) (Auto) 35 % (24-48) Monocytes (%) (Auto) 8 % (0-9) Eosinophils (%) (Auto) 2 % (0-3) Basophils (%) (Auto) 1 % (0-3) Neutrophils # (Auto) 3.2 x10^3/uL (1.8-7.7) Lymphocytes # (Auto) 2.1 x10^3/uL (1.0-4.8) Monocytes # (Auto) 0.5 x10^3/uL (0.0-1.1) Eosinophils # (Auto) 0.1 x10^3/uL (0.0-0.7) Basophils # (Auto) 0.0 x10^3/uL (0.0-0.2) D-Dimer (Vijaya) 0.41 ug/mlFEU (0.00-0.50) Sodium Level 142 mmol/L (136-145) Potassium Level 4.3 mmol/L (3.5-5.1) Chloride Level 108 mmol/L (98-107) H Carbon Dioxide Level 27 mmol/L (21-32) Anion Gap 7 (6-14) Blood Urea Nitrogen 13 mg/dL (7-20) Creatinine 0.8 mg/dL (0.6-1.0) Estimated GFR (Cockcroft-Gault) 98.2 BUN/Creatinine Ratio 16 (6-20) Glucose Level 102 mg/dL (70-99) H Calcium Level 8.7 mg/dL (8.5-10.1) Total Bilirubin 0.1 mg/dL (0.2-1.0) L Aspartate Amino Transferase (AST) 18 U/L (15-37) Alanine Aminotransferase (ALT) 23 U/L (14-59) Alkaline Phosphatase 58 U/L (46-116) Troponin I Quantitative < 0.017 ng/mL (0.000-0.055) Total Protein 6.6 g/dL (6.4-8.2) Albumin 3.3 g/dL (3.4-5.0) L Albumin/Globulin Ratio 1.0 (1.0-1.7) Thyroid Stimulating Hormone (TSH) 1.643 uIU/mL (0.358-3.74) Urine Collection Type Unknown Urine Color Yellow Urine Clarity Clear Urine pH 7.0 (<5.0-8.0) Urine Specific [place] 1.025 (1.000-1.030) Urine Protein Negative mg/dL (NEG-TRACE) Urine Glucose (UA) Negative mg/dL (NEG) Urine Ketones (Stick) Negative mg/dL (NEG) Urine Blood Moderate (NEG) Urine Nitrite Negative (NEG) Urine Bilirubin Negative (NEG) Urine Urobilinogen Dipstick 1.0 mg/dL (0.2 mg/dL) Urine Leukocyte Esterase Negative (NEG) Urine RBC 11-20 /HPF (0-2) Urine WBC 1-4 /HPF (0-4) Urine Squamous Epithelial Cells Many /LPF Urine Amorphous Sediment Present /HPF Urine Bacteria 0 /HPF (0-FEW) Urine Mucus Marked /LPF Urine Opiates Screen Neg (NEG) Urine Methadone Screen Neg (NEG) Urine Barbiturates Neg (NEG) Urine Phencyclidine Screen Neg (NEG) Urine Amphetamine/Methamphetamine Neg (NEG) Urine Benzodiazepines Screen Neg (NEG) Urine Cocaine Screen Neg (NEG) Urine Cannabinoids Screen Neg (NEG) Urine Ethyl Alcohol Neg (NEG) POC Urine HCG, Qualitative Hcg negative (Negative) Laboratory Tests 09/04/20 23:44 Laboratory Tests 09/04/20 23:44 Vital Signs: Vital Signs Date Time Temp Pulse Resp B/P (MAP) Pulse Ox O2 Delivery O2 Flow Rate FiO2 09/04/20 23:27 98.0 100 12 137/75 (95) 97 Room Air 98.0 EKG: EKG: Sinus rhythm 89 bpm, no axis deviation, normal intervals, no T wave inversions, no ST elevations or ST depressions Radiology/Procedures: Radiology/Procedures: IMAGING REPORT Signed PATIENT: PETEY ALBA ACCOUNT: [id number] : 1985 LOCATION: ER AGE: 34 SEX: F EXAM STATUS: REG ER ORD. PHYSICIAN: NIKKI JUAREZ APRN REASON: PALPITATIONS, CHEST PAIN, SOB, HX OF ASTHMA PROCEDURE: PORTABLE CHEST 1V AP chest x-ray HISTORY: Palpitations. Chest pain shortness of breath. History of asthma. COMPARISON: CT chest June 23, 2020. FINDINGS: Heart size stable. Mediastinal silhouette is normal. Calcified granuloma left upper lobe. No pneumothorax, pulmonary opacities or pleural effusions. Bones are unremarkable. IMPRESSION: No acute process. Electronically signed by: Hussain Renee MD (09/05/2020 12:07 AM) [facility] [place] DICTATED and SIGNED BY: HUSSAIN RENEE MD DATE: 09/05/20 [id number] 0 Course & Med Decision Making: Course & Med Decision Making Pertinent Labs and Imaging studies reviewed. (See chart for details) Concern for palpitations with left-sided chest pressure. D-dimer within normal limits. EKG with no cardiac ischemia. Labs with chronic normocytic anemia. Urinalysis with no bacteria, +rbcs/blood -reports she's currently on her menses. CTA chest negative for PE 05/2020. Troponin wnl x2. Heart score w/low risk for MACE. On re-eval, reports improvement in "pressure" with valium. Will discharge home with strict ED return precautions were given for hemoptysis, difficulties breathing, syncope, or neurologic deficits. Encouraged urgent outpatient follow- up with PMD and cardiology as outpatient. Life-threatening processes were considered but are low suspicion at this time, given history, physical exam and ED workup. Pt was educated on all prescription medications and adverse effects. All patient's questions were answered and pt was stable at time of discharge. Life/limb-threatening differential includes but is not limited to, acute myocardial infarction, aortic dissection, congestive heart failure, esophageal injury including rupture, surgical abdomen, arrhythmia, cardiomyopathy, myocarditis, pericarditis, peptic ulcer disease, pneumomediastinum, pneumonia, pneumothorax, pulmonary embolus, unstable angina, rib fracture, contusion, pericardial tamponade or effusion, traumatic injury including mediastinal hemorrhage or hematoma, or pulmonary contusion. I spoken with the patient and her caregivers. I explained the patient's condition, diagnoses and treatment plan based on the information available to me at this time. I have answered the patient and her caregiver's questions and addressed any concerns. The patient and her caregivers have a good und erstanding of patient's diagnosis, condition and treatment plan as can be expected at this point. Vital signs have been stable. Patient's condition is stable and appropriate for discharge from the emergency department. Patient will pursue further outpatient evaluation with primary care physician or other designated or consulting physician as outlined in the discharge instructions. The patient and/or caregivers are agreeable to this plan of care and follow-up instructions have been explained in detail. The patient and/or caregivers have received these instructions in written form and have expressed an understanding of the discharge instructions. The patient and/or caregivers are aware that any significant change of condition or worsening of symptoms should prompt immediate return to this or the closest emergency department or call to 911. BIG Launcher Disclaimer: BIG Launcher Disclaimer: This electronic medical record was generated, in whole or in part, using a voice recognition dictation system. Departure Departure Impression: Primary Impression: Rapid heart rate Additional Impression: Atypical chest pain Disposition: 01 DC HOME SELF CARE/HOMELESS Condition: STABLE Referrals: MARY LOU TORRES APRN (PCP) followup in 1 week Patient Instructions: Palpitations Additional Instructions: FOLLOW UP WITH CARDIOLOGY: For outpatient, preventative management [facility] Address: [address] [place] [id number] EMERGENCY DEPARTMENT GENERAL DISCHARGE INSTRUCTIONS Thank you for coming to [facility] Emergency Department (ED) today and trusting us with you care. We trust that you had a positive experience in our Emergency Department. If you wish to speak to the department management, you may call the Director at [phone]. YOUR FOLLOW UP INSTRUCTIONS ARE FOLLOWS: 1. Do you have a private Doctor? If you do not have a private doctor, please ask for a resource list of physicians or clinics that may be able to assist you with follow up care. 2. The Emergency Physicain has interpreted your x-rays. The X-Ray specialist will also review them. If there is a change in the findings, you will be notified in 48 hours when at all possible. 3. A lab test or culture has been done, your results will be reviewed and you will be notified if you need a change in treatment. ADDITIONAL INSTRUCTIONS AND INFORMATION: 1. Your care today has been supervised by a physician who is specially trained in emergency care. Many problems require more than one evaluation for a complete diagnosis and treatment. We recommend that you schedule your follow up appointment as recommended to ensure complete treatment of you illness or injury. If you are unable to obtain follow up care and continue to have a problem, or if your condition worsens, we recommend that you return to the ED. 2. We are not able to safely determine your condition over the phone nor are we able to give sound medical advice over the phone. For these safety reasons, if you call for medical advice we will ask you to come to the ED for further evaluation. 3. If you have any questions regarding these discharge instructions please call the ED at [phone]. SAFETY INFORMATION: In the interest of safety, wellness, and injury prevention; we encourage you to wear your sealbelt, if you smoke; quite smoking, and we encourage family to use a protective helmet for bicycling and other sporting events that present an increased risk for head injury. IF YOUR SYMPTOMS WORSEN OR NEW SYMPTOMS DEVELOP, OR YOU HAVE CONCERNS ABOUT YOUR CONDITION; OR IF YOUR CONDITION WORSENS WHILE YOU ARE WAITING FOR YOUR FOLLOW UP APPOINTMENT; EITHER CONTACT YOUR PRIMARY CARE DOCTOR, THE PHYSICIAN WHOSE NAME AND NUMBER YOU WERE GIVEN, OR RETURN TO THE ED IMMEDIATELY. JOVANI INFANTE DO Sep 05, 2020 02:09
[2020-09-05 03:58] VITALS: BP 133/80
--- NOTE | 2020-09-07 11:57 | EKG ---
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
== END 2020-09-05 04:05 | disposition home or self-care (01) ==
LOC: ER 23:21
DX: R00.0 Tachycardia, unspecified (principal); R07.89 Other chest pain; J45.909 Unspecified asthma, uncomplicated; Z88.8 Allergy status to other drugs, medicaments and biological substances
CPT/HCPCS: 36415; 71045; 80053; 80307; 81001; 81025; 84443; 84484; 85025; 85379; 93005; 99285-25